=== PATIENT | female | born 1930 | race Caucasian/White ===

== ENCOUNTER 2017-02-11 03:12 | Inpatient (IN) | payer MEDICARE, OTHER ==
[~2017-02-11] VITALS: Ht 167.6 cm; Wt 70.0 kg
[2017-02-11] VITALS (8 sets, daily range): BP systolic 130–147; BP diastolic 60–91; PULSE 69–138; RESP 14–20; TEMP 96–98.2; O2SAT 94–97
[~2017-02-11 03:12] MED LIST: ALLO300 PO; CELE10TA9 PO; CEPH500 PO; FURO1TAB93 PO; GLIM1TAB PO; GLUCTAB PO; IBUP800T23 PO; LEVO100T4 PO; LORA-474 PO; POTA-267 PO; POTA10IN2 PO; RANI150 PO; REME15TA PO; SERO25TA PO; [UNRECOGNIZED DRUG - CODE] PO
[2017-02-11] MEDS ORDERED: SODIUM CHLOR 0.9% 1000 ML INJ 1,000 ML IV SCH (03:59)
[2017-02-11] MEDS ORDERED: SODIUM CHLORIDE 0.9% FLUSH 10 ML FLUSH IV FLUSH PRN ×2 (04:00→07:15)
[2017-02-11] MEDS ORDERED: METFPOW (04:41)
[2017-02-11] MEDS ORDERED: CELE10TA PO (04:41)
[2017-02-11] MEDS ORDERED: REME15TA PO (04:41)
[2017-02-11] MEDS ORDERED: SERO25TA PO (04:41)
[2017-02-11] MEDS ORDERED: NUED20CA PO (04:41)
[2017-02-11] MEDS ORDERED: TUSSLIQ3 PO (04:41)
[2017-02-11] MEDS ORDERED: MILK2400 PO (04:41)
[2017-02-11] MEDS ORDERED: ALLO300T2 PO (04:41)
[2017-02-11] MEDS ORDERED: GLIM1TAB PO (04:41)
[2017-02-11] MEDS ORDERED: FURO1TAB62 PO (04:41)
[2017-02-11] MEDS ORDERED: TYLE325T PO (04:41)
[2017-02-11] MEDS ORDERED: METF500T PO (04:41)
[2017-02-11] MEDS ORDERED: LORA-474 PO ×2 (04:41→11:03)
[2017-02-11] MEDS ORDERED: VERA240C PO (04:41)
[2017-02-11] MEDS ORDERED: LEVO100T5 PO (04:41)
[2017-02-11] MEDS ORDERED: IBUP800T23 PO (04:41)
[2017-02-11] MEDS ORDERED: POTA10CA PO (04:41)
[2017-02-11] MEDS ORDERED: ZANTTAB PO (04:41)
[2017-02-11 05:06] LABS: AUTOMATED NEUTROPHIL # 10.2 TH/MM3 (1.8-7.7); BASOPHIL # 0.1 TH/MM3 (0-0.2); BASOPHIL % 0.7 % (0.0-2.0); EOSINOPHIL # 1.8 TH/MM3 (0-0.4); EOSINOPHIL % 10.1 % (0.0-4.0); HEMATOCRIT 34.6 % (35.0-46.0); HEMO FLAGS DIFF FINAL; LYMPH % 24.2 % (9.0-44.0); LYMPHOCYTE # 4.3 TH/MM3 (1.0-4.8); MEAN CELL VOLUME 100.4 FL (80.0-100.0); MEAN CORPUSCULAR HEMOGLOBIN 33.6 PG (27.0-34.0); MEAN CORPUSCULAR HGB CONC 33.5 % (32.0-36.0); MONO % 6.8 % (0.0-8.0); NEUT % 58.2 % (16.0-70.0); PLATELET COUNT 222 TH/MM3 (150-450); RED BLOOD COUNT 3.45 MIL/MM3 (4.00-5.30); RED CELL DISTRIBUTION WIDTH 16.1 % (11.6-17.2); WHITE BLOOD COUNT 17.6 TH/MM3 (4.0-11.0)
[2017-02-11 05:19] LABS: APTT (PATIENT) 27.5 SEC (24.3-30.1); INTERNATIONAL NORMALIZED RATIO 1.4 RATIO; PROTHROMBIN TIME - PATIENT 15.9 SEC (9.8-11.6)
[2017-02-11 05:26] LABS: ANION GAP 5 MEQ/L (5-15); AST (GOT) 13 U/L (15-37); BICARBONATE 30.7 MEQ/L (21.0-32.0); BLOOD UREA NITROGEN 48 MG/DL (7-18); CHLORIDE 122 MEQ/L (98-107); GLOMERULAR FILTRATION RATE 29 ML/MIN (>89); POTASSIUM 3.8 MEQ/L (3.5-5.1)
[2017-02-11 05:28] LABS: ALKALINE PHOSPHATASE 91 U/L (45-117); ALT (GPT) 16 U/L (10-53); TOTAL BILIRUBIN ADULT 0.3 MG/DL (0.2-1.0)
[2017-02-11 05:29] LABS: SODIUM (NA) 158 MEQ/L (136-145)
[2017-02-11 06:06] LABS: BACTERIA, URINE MANY /hpf; BLOOD, URINE TRACE (NEG); COMMENT (UR) CATH-CULTURE IND; CULTURE IF INDICATED CATH CULTURE IND; GLUCOSE,URINE NEG (NEG); KETONE, URINE NEG (NEG); MUCUS URINE FEW /lpf (OCC); NITRITE,URINE POS (NEG); SQUAMOUS EPITHELIAL CELL URINE 1 /hpf (0-5); URINE COLOR YELLOW (YELLW/STRAW)
--- NOTE | 2017-02-11 06:14 | PD ---
HPI Chief Complaint: Abnormal Results Time Seen by Provider: 04:13 Travel History International Travel<30 days: No Contact w/Intl Traveler<30days: No Traveled to known affect area: No History of Present Illness HPI Patient is an 86 year old female with history of dementia who presents to ER from [facility] for elevated sodium. Patient unable to provide hpi due to her dementia. Patient also sent to ER to evaluate for possible UTI PFSH Past Medical History Alzheimer's Disease: Yes Anemia: Yes Arthritis: Yes Anxiety: Yes Depression: Yes Congestive Heart Failure: Yes Diabetes: Yes Patient Takes Glucophage: Yes Gout: Yes Hypertension: Yes Immunizations Current: Yes Thyroid Disease: Yes Social History Alcohol Use: No (UNK) Tobacco Use: No (UNK) Substance Use: No (UNK) Allergies-Medications (Allergen,Severity, Reaction): Coded Allergies: No Known Allergies (Unverified , 02/11/17) Reported Meds & Prescriptions Reported Meds & Active Scripts Active Reported Ativan (Lorazepam) 1 Mg Tab 1 Mg PO Q8H Zantac 150 Maximum Strength (Ranitidine HCl) 150 Mg Tab 150 Mg PO DAILY Verapamil HCl ER (Verapamil HCl) 240 Mg Cap 240 Mg PO DAILY Tylenol (Acetaminophen) 325 Mg Tab 650 Mg PO Q4H PRN Tussin Dm 100-10 mg/5Ml (Dextromethorphan-Guaifenesin) 1 Liq Liq 5 Ml PO Q4HR PRN Seroquel (Quetiapine Fumarate) 25 Mg Tab 25 Mg PO BID Remeron (Mirtazapine) 15 Mg Tab 15 Mg PO HS Potassium Chloride ER (Potassium Chloride) 10 Meq Cap 10 Meq PO BID Nuedexta 20-10 mg (Dextromethorphan HBr-Quinidine) 1 Cap Cap 1 Cap PO BID Milk of Magnesia Concentrate Liq (Magnesium Hydroxide) 1,200 Mg/5 Ml Susp 30 Ml PO DAILY PRN Metformin (Metformin HCl) 500 Mg Tab 500 Mg PO DAILY With a meal Levothyroxine (Levothyroxine Sodium) 100 Mcg Tab 100 Mcg PO DAILY Lasix (Furosemide) 20 Mg Tab 20 Mg PO DAILY Ibuprofen 800 Mg Tab 800 Mg PO BID Glimepiride 1 Mg Tab 1 Mg PO DAILY Take with breakfast or first main meal Celexa (Citalopram Hydrobromide) 10 Mg Tab 10 Mg PO DAILY Ativan (Lorazepam) 1 Mg Tab 1 Mg PO Q6H PRN Allopurinol 300 Mg Tab 300 Mg PO DAILY Review of Systems ROS Limitations: Poor Historian (dementia) Physical Exam Narrative GENERAL: nad, pleasantly confused SKIN: Focused skin assessment warm/dry. HEAD: Atraumatic. Normocephalic. EYES: Pupils equal and round. No scleral icterus. No injection or drainage. ENT: No nasal bleeding or discharge. Mucous membranes dry and tachy NECK: Trachea midline. No JVD. CARDIOVASCULAR: Regular rate and rhythm. No murmur appreciated. RESPIRATORY: No accessory muscle use. Clear to auscultation. Breath sounds equal bilaterally. GASTROINTESTINAL: Abdomen soft, non-tender, nondistended. Hepatic and splenic margins not palpable. MUSCULOSKELETAL: No obvious deformities. No clubbing. No cyanosis. No edema. Data Data Last Documented VS Vital Signs Date Time Temp Pulse Resp B/P Pulse Ox O2 Delivery O2 Flow Rate FiO2 02/11/17 05:02 75 16 135/63 95 Room Air Orders Complete Blood Count With Diff (02/11/17 03:59) Comprehensive Metabolic Panel (02/11/17 03:59) Lipase (02/11/17 03:59) Prothrombin Time / Inr (Pt) (02/11/17 03:59) Act Partial Throm Time (Ptt) (02/11/17 03:59) Urinalysis - C+S If Indicated (02/11/17 03:59) Iv Access Insert/Monitor (02/11/17 03:59) Ecg Monitoring (02/11/17 03:59) Sodium Chlor 0.9% 1000 Ml Inj (Ns 1000 M (02/11/17 03:59) Sodium Chloride 0.9% Flush (Ns Flush) (02/11/17 04:00) Electrocardiogram (02/11/17 05:19) Ckmb (Isoenzyme) Profile (02/11/17 05:19) Troponin I (02/11/17 05:19) ^ Straight Catheter (02/11/17 05:34) Urine Culture (02/11/17 05:50) Dext 5%-Nacl 0.45% 1000 Ml Inj (D5w-1/2 (02/11/17 06:30) Piperacil-Tazo 3.375 Gm Premix (Zosyn 3. (02/11/17 06:30) Aspirin Supp (Aspirin Supp) (02/11/17 06:30) Admit Order (Ed Use Only) (02/11/17 06:34) Labs Laboratory Tests Test 02/11/17 02/11/17 04:55 05:50 White Blood Count 17.6 TH/MM3 Red Blood Count 3.45 MIL/MM3 Hemoglobin 11.6 GM/DL Hematocrit 34.6 % Mean Corpuscular Volume 100.4 FL Mean Corpuscular Hemoglobin 33.6 PG Mean Corpuscular Hemoglobin 33.5 % Concent Red Cell Distribution Width 16.1 % Platelet Count 222 TH/MM3 Mean Platelet Volume 10.3 FL Neutrophils (%) (Auto) 58.2 % Lymphocytes (%) (Auto) 24.2 % Monocytes (%) (Auto) 6.8 % Eosinophils (%) (Auto) 10.1 % Basophils (%) (Auto) 0.7 % Neutrophils # (Auto) 10.2 TH/MM3 Lymphocytes # (Auto) 4.3 TH/MM3 Monocytes # (Auto) 1.2 TH/MM3 Eosinophils # (Auto) 1.8 TH/MM3 Basophils # (Auto) 0.1 TH/MM3 CBC Comment DIFF FINAL Differential Comment Prothrombin Time 15.9 SEC Prothromb Time International 1.4 RATIO Ratio Activated Partial 27.5 SEC Thromboplast Time Sodium Level 158 MEQ/L Potassium Level 3.8 MEQ/L Chloride Level 122 MEQ/L Carbon Dioxide Level 30.7 MEQ/L Anion Gap 5 MEQ/L Blood Urea Nitrogen 48 MG/DL Creatinine 1.66 MG/DL Estimat Glomerular Filtration 29 ML/MIN Rate Random Glucose 172 MG/DL Calcium Level 8.9 MG/DL Total Bilirubin 0.3 MG/DL Aspartate Amino Transf 13 U/L (AST/SGOT) Alanine Aminotransferase 16 U/L (ALT/SGPT) Alkaline Phosphatase 91 U/L Total Protein 6.8 GM/DL Albumin 2.9 GM/DL Lipase 124 U/L Urine Color YELLOW Urine Turbidity HAZY Urine pH 5.0 Urine Specific [place] 1.016 Urine Protein TRACE mg/dL Urine Glucose (UA) NEG mg/dL Urine Ketones NEG mg/dL Urine Occult Blood TRACE Urine Nitrite POS Urine Bilirubin NEG Urine Urobilinogen LESS THAN 2.0 MG/DL Urine Leukocyte Esterase LARGE Urine RBC 2 /hpf Urine WBC 85 /hpf Urine WBC Clumps MANY Urine Squamous Epithelial 1 /hpf Cells Urine Bacteria MANY /hpf Urine Mucus FEW /lpf Microscopic Urinalysis Comment CATH-CULTURE IND MDM Medical Decision Making Medical Screen Exam Complete: Yes Emergency Medical Condition: Yes Interpretation(s) Vital Signs Date Time Temp Pulse Resp B/P Pulse Ox O2 Delivery O2 Flow Rate FiO2 02/11/17 05:02 75 16 135/63 95 Room Air Differential Diagnosis Hyponatremia, UTI, electrolyte abnormality, ACS, arrhythmia Narrative Course Patient is an 86-year-old female who presents to emergency room from [facility] for evaluation of hypernatremia. Patient's sodium from yesterday's lab was 164. Patient was also sent to the emergency room for evaluation of possible UTI. Labs ordered, sodium 158 - patient with dry mucous membranes, cr elevated - hypernatremia most likely from dehydration and decreased PO intake wbc 17.6, ua positive for large leuk esterase, many wbc, she does have uc from - pt sensitive to zosyn, nitrofuantoin, cefuroxime will give dose of zosyn, it does not appear that patient is on any antibiotics at this time upon [place] records review ekg at 0454: NSR at 73bpm, qt/qtc: 265/291, there are st seg changes - ekg is similar when compared to previous ekg from 12/22/[address] bravo who accepts pt to service Diagnosis Primary Impression: Hypernatremia Additional Impression: UTI (urinary tract infection) Admitting Information Admitting Physician Requests: Admit Jesika Garcia DO February 11, 2017 06:13
[2017-02-11] MEDS ORDERED: ASPIRIN 300 MG SUPP RECTAL ONE (06:30)
[2017-02-11] MEDS ORDERED: DEXT 5%-NACL 0.45% 1000 ML INJ 1,000 ML IV ONE (06:30)
[2017-02-11] MEDS ORDERED: PIPERACIL-TAZO 3.375 GM PREMIX 50 ML IV ONE (06:30)
[2017-02-11] MEDS ORDERED: NALOXONE HCL 0.4 MG/ML AMP IV PRN (07:15)
[2017-02-11] MEDS ORDERED: ACETAMINOPHEN 325 MG TAB PO PRN (07:15)
[2017-02-11] MEDS: DEXTROSE 5% IN WATE 1000ML INJ 1,000 ML IV SCH ×2 (07:15→17:52)
[2017-02-11] MEDS ORDERED: DEXTROSE 50% IN WATER 50 ML VIAL(D50) IV PRN (09:45)
[2017-02-11] MEDS ORDERED: GLUCAGON 1 MG/ML VIAL OTHER PRN (09:45)
--- NOTE | 2017-02-11 10:22 | HHI.HP ---
[facility] Primary Care Physician No Primary Care Physician Admission Diagnosis Hypernatremia, UTI Diagnoses: Chief Complaint: Hypernatremia, UTI Travel History International Travel<30 Days: No Contact w/Intl Traveler <30 Da: No Traveled to Known Affected Are: No History of Present Illness 86-year-old female with a medical history significant for dementia, anxiety/ depression, GERD, CHF, diabetes, hypertension, hypothyroidism, gout, recurrent UTI sent to the hospital from her [place] [facility] facility for hypernatremia. It was reported the patient's sodium has been as high as 164 and was given IV fluid in the nursing facility without much improvement. The patient has significant dementia and is unable to provide her medical history. History obtained from extensive review of the available chart. She can say yes or no to a simple conversation. Currently she denies having any problems. Does not know why she is here. She could not tell me about her diet toward or not she has been drinking water or any fluids. Initial workup in the emergency room revealed a sodium of 158, evidence of a UTI and acute on chronic kidney injury. Review of Systems ROS Limitations: Clinical Condition, Poor Historian Constitutional: DENIES: Fever, Chills Ears, nose, mouth, throat: DENIES: Throat pain, Hoarseness Respiratory: DENIES: Shortness of breath Cardiovascular: DENIES: Chest pain Gastrointestinal: DENIES: Abdominal pain, Nausea, Vomiting Genitourinary: DENIES: Hematuria, Dysuria Neurologic: DENIES: Headache, Localized weakness Psychiatric: COMPLAINS OF: Confusion Past Family Social History Past Medical History dementia, anxiety/depression, GERD, CHF, diabetes, hypertension, hypothyroidism , gout, recurrent UTI Past Surgical History Unable to obtain due to the patient's current condition Reported Medications Medications as listed per the [place] [facility] facility. Nursing staff will confirm dosing and administration time with the nursing facility. Reported Meds & Active Scripts Active Reported Zantac 150 Maximum Strength (Ranitidine HCl) 150 Mg Tab 150 Mg PO DAILY Verapamil HCl ER (Verapamil HCl) 240 Mg Cap Tylenol (Acetaminophen) 325 Mg Tab 325 Mg PO Q4H PRN Tussin Dm 100-10 mg/5Ml (Dextromethorphan-Guaifenesin) 1 Liq Liq Seroquel (Quetiapine Fumarate) 25 Mg Tab 25 Mg PO BID Remeron (Mirtazapine) 15 Mg Tab 15 Mg PO HS Potassium Chloride ER (Potassium Chloride) 10 Meq Cap 10 Meq PO BID Nuedexta 20-10 mg (Dextromethorphan HBr-Quinidine) 1 Cap Cap 1 Cap PO BID Milk of Magnesia Concentrate Liq (Magnesium Hydroxide) 1,200 Mg/5 Ml Susp 30 Ml PO DAILY PRN Metformin (Metformin HCl) 500 Mg Tab 500 Mg PO DAILY With a meal Levothyroxine (Levothyroxine Sodium) 100 Mcg Tab 100 Mcg PO DAILY Lasix (Furosemide) 20 Mg Tab 20 Mg PO DAILY Ibuprofen 800 Mg Tab 800 Mg PO BID Glimepiride 1 Mg Tab 1 Mg PO DAILY Take with breakfast or first main meal Celexa (Citalopram Hydrobromide) 10 Mg Tab 10 Mg PO DAILY Ativan (Lorazepam) 1 Mg Tab 1 Mg PO Q6H PRN Allopurinol 300 Mg Tab 300 Mg PO DAILY Allergies: Coded Allergies: No Known Allergies (Unverified , 02/11/17) Family History Unable to obtain due to the patient's condition Social History Unable to obtain. Physical Exam Vital Signs Vital Signs Date Time Temp Pulse Resp B/P Pulse Ox O2 Delivery O2 Flow Rate FiO2 02/11/17 05:02 75 16 135/63 95 Room Air Physical Exam GENERAL: Elderly demented patient SKIN: Right black has an abrasion that is dried HEAD: Atraumatic. Normocephalic. No temporal or scalp tenderness. EYES: Pupils equal round and reactive. Extraocular motions intact. No scleral icterus. No injection or drainage. ENT: Mouth is pasty and dry. Nose without bleeding, purulent drainage or septal hematoma. Throat without erythema, tonsillar hypertrophy or exudate. Uvula midline. Airway patent. NECK: Trachea midline. No JVD or lymphadenopathy. Supple, nontender, no meningeal signs. CARDIOVASCULAR: Regular rate and rhythm. 2/6 BALIBR murmur, best heard at the left lower sternal border. RESPIRATORY: Clear to auscultation. Breath sounds equal bilaterally. No wheezes , rales, or rhonchi. GASTROINTESTINAL: Abdomen soft, non-tender, nondistended. No hepato-splenomegaly , or palpable masses. No guarding. MUSCULOSKELETAL: Extremities without clubbing, cyanosis, or edema. Negative Homans sign bilaterally. NEUROLOGICAL: Awake and alert. Demented, confused. Focal weakness but generalized weakness noted. Speech mostly incoherent. Laboratory Laboratory Tests Test 02/11/17 02/11/17 04:55 05:50 White Blood Count 17.6 Red Blood Count 3.45 Hemoglobin 11.6 Hematocrit 34.6 Mean Corpuscular Volume 100.4 Mean Corpuscular Hemoglobin 33.6 Mean Corpuscular Hemoglobin 33.5 Concent Red Cell Distribution Width 16.1 Platelet Count 222 Mean Platelet Volume 10.3 Neutrophils (%) (Auto) 58.2 Lymphocytes (%) (Auto) 24.2 Monocytes (%) (Auto) 6.8 Eosinophils (%) (Auto) 10.1 Basophils (%) (Auto) 0.7 Neutrophils # (Auto) 10.2 Lymphocytes # (Auto) 4.3 Monocytes # (Auto) 1.2 Eosinophils # (Auto) 1.8 Basophils # (Auto) 0.1 CBC Comment DIFF FINAL Differential Comment Prothrombin Time 15.9 Prothromb Time International 1.4 Ratio Activated Partial 27.5 Thromboplast Time Sodium Level 158 Potassium Level 3.8 Chloride Level 122 Carbon Dioxide Level 30.7 Anion Gap 5 Blood Urea Nitrogen 48 Creatinine 1.66 Estimat Glomerular Filtration 29 Rate Random Glucose 172 Calcium Level 8.9 Total Bilirubin 0.3 Aspartate Amino Transf 13 (AST/SGOT) Alanine Aminotransferase 16 (ALT/SGPT) Alkaline Phosphatase 91 Total Protein 6.8 Albumin 2.9 Lipase 124 Urine Color YELLOW Urine Turbidity HAZY Urine pH 5.0 Urine Specific [place] 1.016 Urine Protein TRACE Urine Glucose (UA) NEG Urine Ketones NEG Urine Occult Blood TRACE Urine Nitrite POS Urine Bilirubin NEG Urine Urobilinogen LESS THAN 2.0 Urine Leukocyte Esterase LARGE Urine RBC 2 Urine WBC 85 Urine WBC Clumps MANY Urine Squamous Epithelial 1 Cells Urine Bacteria MANY Urine Mucus FEW Microscopic Urinalysis Comment CATH-CULTURE IND Date/Time Procedure Status Source Growth 02/11/17 05:50 Urine Culture Received Urine Catheterized Urine Pending Result Diagram: 02/11/17 0455 02/11/17 0455 Assessment and Plan Problem List: (1) Hypernatremia ICD Code: E87.0 Status: Acute Plan: Suspect this is due to hypovolemia from dehydration. Patient appears dry on exam. - IV fluid with D5 half-normal saline at 100 cc per hour. - Repeat BMP at noon. - Follow intake and output. We'll need to ensure she can take adequate oral fluid intake. Not unusual for dementia patient to refuse to eat as the disease progress to end-stage. (2) UTI (urinary tract infection) ICD Code: N39.0 Status: Acute Plan: History of recurrent UTI but no reports of resistant infection. - Patient received a dose of Zosyn. Will continue antibiotics with Rocephin and follow urine cultures. (3) DEHYDRATION ICD Code: E86.0 Status: Acute Plan: IV fluid replacement with D5 half-normal saline at 100 cc per hour as above. Follow intake and output. (4) Acute kidney injury superimposed on chronic kidney disease ICD Code: N17.9 Status: Acute Plan: Likely prerenal azotemia from dehydration. IV fluid as above. Follow- up BMP (5) Dementia ICD Code: F03.90 Status: Chronic Plan: Appear to have had some behavioral disturbances in the past. Patient is dehydrated likely from inadequate oral intake. (6) Diabetes ICD Code: E11.9 Status: Acute Plan: Hold all hypoglycemic agents. SSI with Accu-Cheks (7) Hypertension ICD Code: I10 Status: Chronic Plan: Currently normotensive. Hold antihypertensives given the hydration status. Hydralazine PRN. Monitor Code Status Full code for now. Awaiting clarification from healthcare surrogate. Discussed Condition With RN.We attempted to call the patient's healthcare surrogate. No answer. POA was notified. They will have the healthcare surrogate call us to clarify code status. Physician Certification 2 Midnight Certification Type: Admission for Inpatient Services Order for Inpatient Services The services are ordered in accordance with Medicare regulations or non- Medicare payer requirements, as applicable. In the case of services not specified as inpatient-only, they are appropriately provided as inpatient services in accordance with the 2-midnight benchmark. Estimated LOS (days): 3 days is the estimated time the patient will need to remain in the hospital, assuming treatment plan goals are met and no additional complications. Post-Hospital Plan: [facility] Rosalio Cameron MD February 11, 2017 10:22
[2017-02-11] MEDS: INSULIN ASPART SUPPLEMENTAL SCALE SQ SCH ×3 (11:00→21:21)
[2017-02-11] MEDS: SODIUM CHLORIDE 0.9% FLUSH 10 ML FLUSH IV FLUSH SCH ×2 (12:17→21:00)
[2017-02-11] MEDS: HEPARIN SODIUM - SQ 10,000 UNITS/ML VIAL SQ SCH ×2 (12:21→17:51)
[2017-02-11 12:24] LABS: CREATINE KINASE 43 U/L (26-192)
--- NOTE | 2017-02-11 15:11 | EKG ---
Date Performed: 02/11/2017 Time Performed: 04:54:30 PTAGE: 86 years EKG: Sinus rhythm WITH FIRST DEGREE AV BLOCK LOW QRS VOLTAGE IN PRECORDIAL LEADS ST ELEVATION, CONSIDER SEPTAL INJURY TYPE 3 BRUGADA PATTERN (NON-DIAGNOSTIC) ACUTE FL When compared to PREVIOUS TRACING , ST elevation has improved. Anterior infarct can not be excluded. Clini pritesh corrolation is suggested. PREVIOUS TRACIN12/22/2015 00.55 DOCTOR: Rivka Long Interpretating Date/Time 02/11/2017 15:10:16
[2017-02-11 16:52] LABS: BICARBONATE 24.6 MEQ/L (21.0-32.0); POTASSIUM 3.7 MEQ/L (3.5-5.1)
--- NOTE | 2017-02-11 20:15 | EKG ---
Date Performed: 02/11/2017 Time Performed: 07:14:03 PTAGE: 86 years EKG: Sinus rhythm WITH FIRST DEGREE AV BLOCK LOW QRS VOLTAGE IN PRECORDIAL LEADS NONSPECIFIC ST & T-WAVE ABNORMALITY R BBB ARTIFACT ABNORMAL ECG PREVIOUS TRACING : 02/11/2017 04.54 Compared to prior tracing no significant change DOCTOR: Janet Lynn Interpretating Date/Time 02/11/2017 20:12:49
[2017-02-11] MEDS: QUEtiapine FUMARATE 25 MG TAB PO SCH (21:22)
[2017-02-11 21:41] LABS: HEMOGLOBIN A1a 1.4 %; HEMOGLOBIN A1b 2.4 %; HEMOGLOBIN LA1C 2.8 %
[2017-02-11 21:42] LABS: HEMOGLOBIN P3 6.8 %
[2017-02-12] VITALS (8 sets, daily range): BP systolic 130–149; BP diastolic 60–78; PULSE 66–116; RESP 16–21; TEMP 96.7–99.5; O2SAT 94–98
[2017-02-12] MEDS: HEPARIN SODIUM - SQ 10,000 UNITS/ML VIAL SQ SCH ×4 (01:00→23:13)
[2017-02-12] MEDS: DEXTROSE 5% IN WATE 1000ML INJ 1,000 ML IV SCH ×2 (02:23→23:16)
[2017-02-12] MEDS: INSULIN ASPART SUPPLEMENTAL SCALE SQ SCH ×4 (05:23→23:13)
[2017-02-12 05:26] LABS: AUTOMATED NEUTROPHIL # 9.3 TH/MM3 (1.8-7.7); BASOPHIL # 0.1 TH/MM3 (0-0.2); BASOPHIL % 0.4 % (0.0-2.0); EOSINOPHIL % 12.3 % (0.0-4.0); HEMATOCRIT 30.6 % (35.0-46.0); HEMO FLAGS DIFF FINAL; LYMPH % 25.9 % (9.0-44.0); LYMPHOCYTE # 4.3 TH/MM3 (1.0-4.8); MEAN CELL VOLUME 100.5 FL (80.0-100.0); MEAN CORPUSCULAR HEMOGLOBIN 31.7 PG (27.0-34.0); MEAN CORPUSCULAR HGB CONC 31.5 % (32.0-36.0); MONO % 4.9 % (0.0-8.0); NEUT % 56.5 % (16.0-70.0); PLATELET COUNT 180 TH/MM3 (150-450); RED BLOOD COUNT 3.04 MIL/MM3 (4.00-5.30); RED CELL DISTRIBUTION WIDTH 15.9 % (11.6-17.2); WHITE BLOOD COUNT 16.5 TH/MM3 (4.0-11.0)
[2017-02-12 05:57] LABS: ALKALINE PHOSPHATASE 75 U/L (45-117); ALT (GPT) 14 U/L (10-53); ANION GAP 6 MEQ/L (5-15); AST (GOT) 16 U/L (15-37); BICARBONATE 27.5 MEQ/L (21.0-32.0); BLOOD UREA NITROGEN 27 MG/DL (7-18); CHLORIDE 117 MEQ/L (98-107); GLOMERULAR FILTRATION RATE 52 ML/MIN (>89); POTASSIUM 3.4 MEQ/L (3.5-5.1); SODIUM (NA) 150 MEQ/L (136-145); TOTAL BILIRUBIN ADULT 0.4 MG/DL (0.2-1.0)
[2017-02-12] MEDS ORDERED: PILL SPLITTER OTHER PRN (09:00)
[2017-02-12] MEDS: ALLOPURINOL 300 MG TAB PO SCH (09:58)
[2017-02-12] MEDS: QUEtiapine FUMARATE 25 MG TAB PO SCH ×2 (09:58→20:48)
[2017-02-12] MEDS: CITALOPRAM HYDROBROMIDE 20 MG TAB PO SCH (09:58)
[2017-02-12] MEDS: SODIUM CHLORIDE 0.9% FLUSH 10 ML FLUSH IV FLUSH SCH ×2 (09:59→20:46)
--- NOTE | 2017-02-12 11:42 | HHI.PR ---
Subjective Remarks Patient has no new complaints. Pleasantly demented. Discussed with RN. Concerned that she is not able to eat. Objective Vitals Vital Signs Date Time Temp Pulse Resp B/P Pulse Ox O2 Delivery O2 Flow Rate FiO2 02/12/17 08:00 96.7 66 20 130/60 96 02/12/17 04:33 97.0 76 17 133/67 94 02/12/17 01:15 84 02/12/17 00:00 96.8 74 21 134/65 96 02/11/17 20:39 138 02/11/17 20:00 96.4 92 16 147/91 94 02/11/17 16:46 96.0 73 20 139/62 95 02/11/17 16:14 14 70 130/60 02/11/17 13:00 98.2 02/11/17 12:00 70 14 138/68 97 Room Air I/O 02/11/17 02/11/17 02/11/17 02/12/17 02/12/17 02/12/17 07:00 15:00 23:00 07:00 15:00 23:00 Intake Total 380 ml 1238 ml 40 ml Balance 380 ml 1238 ml 40 ml Intake Oral 380 ml 120 ml 40 ml IV Total 1118 ml # Voids 3 2 1 # Bowel Movements 0 Result Diagram: 02/12/17 0428 02/12/17 0428 Objective Remarks GENERAL: Elderly demented female CARDIOVASCULAR: Normal rate and regular rhythm. 3/6 BALBIR best at the left sternal border. RESPIRATORY: Good respiratory efforts. Breath sounds equal and clear to auscultation bilaterally. GASTROINTESTINAL: Abdomen soft, non-tender, non-distended. Normal active bowel sounds MUSCULOSKELETAL: Extremities without cyanosis, or edema. NEURO: Demented. Generally weak. PSYCH: Calm.. A/P Problem List: (1) Hypernatremia ICD Code: E87.0 Status: Acute Plan: Suspect this is due to hypovolemia from dehydration. Patient appears dry on exam. This is improving. - Continue with IV fluid with D5 half-normal saline at 100 cc per hour. - Repeat BMP in a.m. - Follow intake and output. It appears she is having problems eating. Speech therapy evaluation. (2) UTI (urinary tract infection) ICD Code: N39.0 Status: Acute Plan: History of recurrent UTI but no reports of resistant infection. - Patient received a dose of Zosyn. Will continue antibiotics with Rocephin and follow urine cultures. (3) DEHYDRATION ICD Code: E86.0 Status: Acute Plan: IV fluid replacement with D5 half-normal saline at 100 cc per hour as above. Follow intake and output. (4) Acute kidney injury superimposed on chronic kidney disease ICD Code: N17.9 Status: Acute Plan: Likely prerenal azotemia from dehydration. Improving. IV Fluid as above. Follow-up BMP (5) Dementia ICD Code: F03.90 Status: Chronic Plan: Appear to have had some behavioral disturbances in the past. Patient is dehydrated likely from inadequate oral intake. (6) Diabetes ICD Code: E11.9 Status: Acute Plan: Hold oral hypoglycemic agents. SSI with Accu-Cheks (7) Hypertension ICD Code: I10 Status: Chronic Plan: Currently normotensive. Hold antihypertensives given the hydration status. Hydralazine PRN. Monitor Rosalio Cameron MD February 12, 2017 11:42
[2017-02-13] VITALS: BP 161/70; PULSE 77; RESP 16; TEMP 96.4; O2SAT 94
[2017-02-13 04:00] VITALS: BP 155/67; PULSE 74; RESP 16; TEMP 96.8; O2SAT 94
[2017-02-13 05:36] LABS: HEMATOCRIT 33.1 % (35.0-46.0); MEAN CELL VOLUME 99.1 FL (80.0-100.0); MEAN CORPUSCULAR HEMOGLOBIN 32.4 PG (27.0-34.0); MEAN CORPUSCULAR HGB CONC 32.7 % (32.0-36.0); PLATELET COUNT 195 TH/MM3 (150-450); RED BLOOD COUNT 3.34 MIL/MM3 (4.00-5.30); RED CELL DISTRIBUTION WIDTH 15.7 % (11.6-17.2); REVIEW FLAG FINAL; WHITE BLOOD COUNT 15.1 TH/MM3 (4.0-11.0)
[2017-02-13] MEDS: INSULIN ASPART SUPPLEMENTAL SCALE SQ SCH ×3 (06:00→16:00)
[2017-02-13 06:04] LABS: BICARBONATE 26.1 MEQ/L (21.0-32.0); POTASSIUM 3.4 MEQ/L (3.5-5.1)
[2017-02-13 08:00] VITALS: BP 140/90; PULSE 70; RESP 16; TEMP 97.8; O2SAT 96
[2017-02-13] MEDS: SODIUM CHLORIDE 0.9% FLUSH 10 ML FLUSH IV FLUSH SCH (09:00)
[2017-02-13] MEDS: DEXTROSE 5% IN WATE 1000ML INJ 1,000 ML IV SCH (09:15)
[2017-02-13] MEDS: QUEtiapine FUMARATE 25 MG TAB PO SCH (09:41)
[2017-02-13] MEDS: HEPARIN SODIUM - SQ 10,000 UNITS/ML VIAL SQ SCH ×2 (09:41→17:15)
[2017-02-13] MEDS: ALLOPURINOL 300 MG TAB PO SCH (09:41)
[2017-02-13] MEDS: CITALOPRAM HYDROBROMIDE 20 MG TAB PO SCH (09:41)
[2017-02-13 12:00] VITALS: BP 104/75; PULSE 73; RESP 16; TEMP 98; O2SAT 95
[2017-02-13] MEDS ORDERED: CEFU1TAB20 PO (13:39)
--- NOTE | 2017-02-13 13:40 | HHI.DCPOC ---
Discharge Care Plan Diagnosis: (1) Dementia (2) Hypernatremia (3) UTI (urinary tract infection) (4) Acute kidney injury superimposed on chronic kidney disease (5) DEHYDRATION Goals to Promote Your Health * To prevent worsening of your condition and complications * To maintain your health at the optimal level Directions to Meet Your Goals Take your medications as prescribed Follow your dietary instruction Follow activity as directed Keep your appointments as scheduled Take your immunizations and boosters as scheduled If your symptoms worsen call your PCP, if no PCP go to Urgent Care Center or Emergency Room Smoking is Dangerous to Your Health. Avoid second hand smoke Call the 24-hour hour crisis hotline for domestic abuse at [place] February 13, 2017 13:40 Rosalio Cameron MD February 13, 2017 14:14
--- NOTE | 2017-02-13 13:40 | HHI.DS ---
Discharge Summary Admission Date February 11, 2017 at 06:35 Discharge Date: February 13, 2017 Admitting Diagnosis Hypernatremia, UTI (1) Hypernatremia ICD Code: E87.0 (2) UTI (urinary tract infection) ICD Code: N39.0 (3) DEHYDRATION ICD Code: E86.0 (4) Acute kidney injury superimposed on chronic kidney disease ICD Code: N17.9 (5) Dementia ICD Code: F03.90 (6) Diabetes ICD Code: E11.9 (7) Hypertension ICD Code: I10 Procedures IVF administration. Antibiotic administration. Lab monitoring. Brief History - From Admission 86-year-old female with a medical history significant for dementia, anxiety/ depression, GERD, CHF, diabetes, hypertension, hypothyroidism, gout, recurrent UTI sent to the hospital from her [facility] facility for hypernatremia. It was reported the patient's sodium has been as high as 164 and was given IV fluid in the nursing facility without much improvement. The patient has significant dementia and is unable to provide her medical history. History obtained from extensive review of the available chart. She can say yes or no to a simple conversation. Currently she denies having any problems. Does not know why she is here. She could not tell me about her diet toward or not she has been drinking water or any fluids. Initial workup in the emergency room revealed a sodium of 158, evidence of a UTI and acute on chronic kidney injury. CBC/BMP: 02/13/17 0446 02/13/17 0446 Significant Findings Laboratory Tests Test 02/11/17 02/11/17 02/11/17 02/11/17 04:55 05:50 11:20 15:38 Prothrombin Time 15.9 SEC (9.8-11.6) Sodium Level 158 MEQ/L 156 MEQ/L (136-145) (136-145) Chloride Level 122 MEQ/L 124 MEQ/L (98-107) (98-107) Blood Urea Nitrogen 48 MG/DL (7-18) 37 MG/DL (7-18) Creatinine 1.66 MG/DL 1.35 MG/DL (0.50-1.00) (0.50-1.00) Estimat Glomerular Filtration 29 ML/MIN (>89) 37 ML/MIN (>89) Rate Random Glucose 172 MG/DL 66 MG/DL (74-106) (74-106) Hemoglobin A1c 6.7 % (4.3-6.0) Aspartate Amino Transf 13 U/L (15-37) (AST/SGOT) Albumin 2.9 GM/DL (3.4-5.0) White Blood Count 17.6 TH/MM3 (4.0-11.0) Red Blood Count 3.45 MIL/MM3 (4.00-5.30) Hematocrit 34.6 % (35.0-46.0) Mean Corpuscular Volume 100.4 FL (80.0-100.0) Eosinophils (%) (Auto) 10.1 % (0.0-4.0) Neutrophils # (Auto) 10.2 TH/MM3 (1.8-7.7) Monocytes # (Auto) 1.2 TH/MM3 (0-0.9) Eosinophils # (Auto) 1.8 TH/MM3 (0-0.4) Urine Turbidity HAZY (CLEAR) Urine Occult Blood TRACE (NEG) Urine Nitrite POS (NEG) Urine Leukocyte Esterase LARGE (NEG) Urine WBC 85 /hpf (0-5) Urine WBC Clumps MANY (NONE) Urine Bacteria MANY /hpf (NONE) Urine Mucus FEW /lpf (OCC) Troponin I LESS THAN 0.02 LESS THAN 0.02 NG/ML NG/ML (0.02-0.05) (0.02-0.05) Test 02/12/17 02/13/17 04:28 04:46 White Blood Count 16.5 TH/MM3 15.1 TH/MM3 (4.0-11.0) (4.0-11.0) Red Blood Count 3.04 MIL/MM3 3.34 MIL/MM3 (4.00-5.30) (4.00-5.30) Hemoglobin 9.6 GM/DL 10.8 GM/DL (11.6-15.3) (11.6-15.3) Hematocrit 30.6 % 33.1 % (35.0-46.0) (35.0-46.0) Mean Corpuscular Volume 100.5 FL (80.0-100.0) Mean Corpuscular Hemoglobin 31.5 % Concent (32.0-36.0) Eosinophils (%) (Auto) 12.3 % (0.0-4.0) Neutrophils # (Auto) 9.3 TH/MM3 (1.8-7.7) Eosinophils # (Auto) 2.0 TH/MM3 (0-0.4) Sodium Level 150 MEQ/L (136-145) Potassium Level 3.4 MEQ/L 3.4 MEQ/L (3.5-5.1) (3.5-5.1) Chloride Level 117 MEQ/L 112 MEQ/L (98-107) (98-107) Blood Urea Nitrogen 27 MG/DL (7-18) 19 MG/DL (7-18) Creatinine 1.01 MG/DL (0.50-1.00) Estimat Glomerular Filtration 52 ML/MIN (>89) 56 ML/MIN (>89) Rate Random Glucose 123 MG/DL 134 MG/DL (74-106) (74-106) Calcium Level 8.2 MG/DL 8.4 MG/DL (8.5-10.1) (8.5-10.1) Total Protein 5.5 GM/DL (6.4-8.2) Albumin 2.3 GM/DL (3.4-5.0) PE at Discharge GENERAL: Elderly demented female CARDIOVASCULAR: Normal rate and regular rhythm. 3/6 BALBIR best at the left sternal border. RESPIRATORY: Good respiratory efforts. Breath sounds equal and clear to auscultation bilaterally. GASTROINTESTINAL: Abdomen soft, non-tender, non-distended. Normal active bowel sounds MUSCULOSKELETAL: Extremities without cyanosis, or edema. NEURO: Demented. Generally weak. PSYCH: Calm.. Hospital Course Ms. Ruvalcaba is an 86-year-old female with a medical history significant for dementia, anxiety/depression, GERD, CHF, diabetes, hypertension, hypothyroidism , gout, recurrent UTI sent to the hospital from her [facility]dc facility for hypernatremia with sodium of 158. Suspected hypernatremia due to hypovolemia from dehydration. Also found to have elevated creatinine on admission, 1.66, suspect likely prerenal azotemia from dehydration. Upon discharge creatinine had normalized. Administered IVF D% 1/2 NS at 100ml/hr. Sodium improved on day of discharge to 145. Intake and output were monitored. While patient was hospitalized patient was found to have trouble with eating and required prompting and assistance. When this was encouraged her PO intake improved significantly. Speech therapy evaluated patient with final recommendations of a pureed thin liquid diet with patient needing assistance with feeding to assure adequate PO intake. Patient arrived with leukocytosis, WBC 17.6 with trending downward to 15.1. Urine culture grew E.coli, given dose of Zosyn in ED and given course of Cefuroxime, to be finished at SNF. Patient's diabetes controlled via sliding scale insulin and covered as needed. Pt Condition on Discharge: Stable Discharge Disposition: Discharge to SNF Discharge Time: > 30 minutes Discharge Instructions DIET: Follow Instructions for: Heart Healthy Diet Speech Therapy-Diet Recommends: Pureed (thin liquids) Additional Diet Instructions: It is important that patient is given assistance with meals and prompted to eat to assure adequate intake with each meal. Activities you can perform: Regular-No Restrictions Follow up Referrals: PCP Follow-up - 2-3 Days New Medications: Cefuroxime (Cefuroxime) 500 Mg Tab 500 MG PO BID Infection #10 Ref 0 TAB Continued Medications: Acetaminophen (Tylenol) 325 Mg Tab 650 MG PO Q4H PRN MILD PAIN Ref 0 TAB Allopurinol (Allopurinol) 300 Mg Tab 300 MG PO DAILY Gout #30 Ref 0 TAB Citalopram (Celexa) 10 Mg Tab 10 MG PO DAILY Control Depression #30 Ref 0 TAB Dextromethorphan HBr-Quinidine (Nuedexta 20-10 mg) 1 Cap Cap 1 CAP PO BID Pseudobulbar Affect #60 Ref 0 CAP Dextromethorphan-Guaifenesin (Tussin Dm 100-10 mg/5Ml) 1 Liq Liq 5 ML PO Q4HR PRN CHEST CONGESTION AND/OR COUGH Furosemide (Lasix) 20 Mg Tab 20 MG PO DAILY #30 Ref 0 TAB Glimepiride (Glimepiride) 1 Mg Tab 1 MG PO DAILY Take with breakfast or first main meal Blood Sugar Management #30 Ref 0 TAB Ibuprofen (Ibuprofen) 800 Mg Tab 800 MG PO BID Arthritis Pain Ref 0 TAB Levothyroxine (Levothyroxine) 100 Mcg Tab 100 MCG PO DAILY Thyroid #30 Ref 0 TAB Lorazepam (Ativan) 1 Mg Tab 1 MG PO Q6H PRN ANXIETY AND/OR AGITATION Ref 0 TAB Lorazepam (Ativan) 1 Mg Tab 1 MG PO Q8H Anxiety Ref 0 TAB Magnesium Hydroxide Concentrate Liq (Milk of Magnesia Concentrate Liq) 1,200 Mg/ 5 Ml Susp 30 ML PO DAILY PRN CONSTIPATION #1 BOTTLE Metformin (Metformin) 500 Mg Tab 500 MG PO DAILY With a meal Blood Sugar Management #30 Ref 0 TAB Mirtazapine (Remeron) 15 Mg Tab 15 MG PO HS Depression Control #30 Ref 0 TAB Potassium Chloride ER (Potassium Chloride ER) 10 Meq Cap 10 MEQ PO BID Electrolyte Replacement #60 Ref 0 CAP Quetiapine (Seroquel) 25 Mg Tab 25 MG PO BID #60 Ref 0 TAB Ranitidine (Zantac 150 Maximum Strength) 150 Mg Tab 150 MG PO DAILY TAB Verapamil HCl (Verapamil HCl ER) 240 Mg Cap 240 MG PO DAILY HTN Belgica Sousa February 13, 2017 13:40 Rosalio Cameron MD February 13, 2017 14:15
[2017-02-13] MEDS ORDERED: POTASSIUM CHLORIDE 10 MEQ CONTROLLED RELEASE TAB PO ONE (14:00)
== END 2017-02-13 18:02 | DRG 641 ==
LOC: NEPE 03:12 → NEDA 06:35 → N07B 16:21
PROVIDERS: ADMIT Family Medicine; ATTEND Family Medicine
DX: E87.0 Hyperosmolality and hypernatremia (principal); E86.0 Dehydration; N17.9 Acute kidney failure, unspecified; N39.0 Urinary tract infection, site not specified; E11.9 Type 2 diabetes mellitus without complications; I10 Essential (primary) hypertension; F41.9 Anxiety disorder, unspecified; F32.9 Major depressive disorder, single episode, unspecified; K21.9 Gastro-esophageal reflux disease without esophagitis; E03.9 Hypothyroidism, unspecified; M10.9 Gout, unspecified; Z79.84 Long term (current) use of oral hypoglycemic drugs
CPT/HCPCS: 80048; 80053; 81001; 82550; 82948; 83036; 83690; 84484; 85025; 85027; 85610; 85730; 87040; 87077; 87086; 87186; 93005; 96361; 96365; 96372; G8996-GN; G8997-GN; G8998-GN; J1644; J1815; J2543; J7030; J7070

== ENCOUNTER 2017-02-21 23:38 | Emergency (ER) | payer MEDICARE, OTHER ==
[~2017-02-21] VITALS: Ht 167.6 cm; Wt 75.0 kg
[~2017-02-21 23:38] MED LIST changes: -ALLO300 PO; +ALLO300T2 PO; +CEFU1TAB20 PO; +CELE10TA PO; -CELE10TA9 PO; -CEPH500 PO; +FURO1TAB62 PO; -FURO1TAB93 PO; -GLUCTAB PO; -LEVO100T4 PO; +LEVO100T5 PO; +METF500T PO; +MILK2400 PO; +NUED20CA PO; -POTA-267 PO; +POTA10CA PO; -POTA10IN2 PO; -RANI150 PO; +TUSSLIQ3 PO; +TYLE325T PO; +VERA240C PO; +ZANTTAB PO; -[UNRECOGNIZED DRUG - CODE] PO
[2017-02-21 23:49] VITALS: BP 149/79; PULSE 74; RESP 14; TEMP 98.8; O2SAT 94
[2017-02-21 23:53] VITALS: BP 149/79; PULSE 73; RESP 14; O2SAT 96
[2017-02-22] MEDS ORDERED: DIPHTH/TETANUS/ACEL PERTUSSIS (BOOSTER) 0.5 ML VIAL/PFS IM ONE
--- NOTE | 2017-02-22 00:19 | RADRPT ---
EXAM DATE/TIME: 02/22/2017 00:08 [facility] COMPARISON: CT BRAIN W/O CONTRAST, December 22, 2015, 0:02. INDICATIONS : Trauma, fall. RADIATION DOSE: 32.89 CTDIvol (mGy) MEDICAL HISTORY : Non-responsive. SURGICAL HISTORY : Non-responsive. ENCOUNTER: Initial ACUITY: 1 day PAIN SCALE: 5/10 LOCATION: cranial TECHNIQUE: Multiple contiguous axial images were obtained of the head. Using automated exposure control and adj ustment of the mA and/or kV according to patient size, radiation dose was kept as low as reasonably a chievable to obtain optimal diagnostic quality images. FINDINGS: There is no evidence for intracranial hemorrhage, mass effect, mass lesions, or edema. The visualize d bony structures appear intact. Moderate degree of brain atrophy is seen. Moderate periventricular white matter changes are seen nonspecific mostly consistent with chronic small vessel ischemic change s. There are no signs of acute infarction for technique. There is nasal bone fracture on the right s kalyani not present previously with scalp hematoma in the right frontal region. CONCLUSION: Scalp hematoma in the right frontal region with nasal bone fracture. Ion Dumont MD on February 22, 2017 at 0:15 Board Certified Radiologist. This report was verified electronically.
--- NOTE | 2017-02-22 00:23 | PD ---
HPI . Fall Chief Complaint: Fall Time Seen by Provider: 23:48 Travel History International Travel<30 days: No Contact w/Intl Traveler<30days: No Traveled to known affect area: No History of Present Illness HPI This is a patient with dementia who lives in a care home who presents to us following a fall out of bed. She struck her forehead and nose. She had some epistaxis prior to arrival. The patient is unable to give us any history whatsoever. EMS reports that this is her baseline. PFSH Past Medical History Alzheimer's Disease: Yes Anemia: Yes Arthritis: Yes Anxiety: Yes Depression: Yes Cancer: No Congestive Heart Failure: Yes Cerebrovascular Accident: No Diabetes: Yes Gout: Yes Genitourinary: No Hypertension: Yes Reproductive: No Respiratory: No Immunizations Current: Yes Thyroid Disease: Yes Past Surgical History Joint Replacement: Yes Social History Alcohol Use: No (UNK) Tobacco Use: No (UNK) Substance Use: No Allergies-Medications (Allergen,Severity, Reaction): Coded Allergies: No Known Allergies (Unverified , 02/11/17) Reported Meds & Prescriptions Reported Meds & Active Scripts Active Reported Zantac 150 Maximum Strength (Ranitidine HCl) 150 Mg Tab 150 Mg PO DAILY Verapamil HCl ER (Verapamil HCl) 240 Mg Cap 240 Mg PO DAILY Tylenol (Acetaminophen) 325 Mg Tab 650 Mg PO Q4H PRN Tussin Dm 100-10 mg/5Ml (Dextromethorphan-Guaifenesin) 1 Liq Liq 5 Ml PO Q4HR PRN Seroquel (Quetiapine Fumarate) 25 Mg Tab 25 Mg PO BID Remeron (Mirtazapine) 15 Mg Tab 15 Mg PO HS Potassium Chloride ER (Potassium Chloride) 10 Meq Cap 10 Meq PO BID Nuedexta 20-10 mg (Dextromethorphan HBr-Quinidine) 1 Cap Cap 1 Cap PO BID Metformin (Metformin HCl) 500 Mg Tab 500 Mg PO DAILY With a meal Levothyroxine (Levothyroxine Sodium) 100 Mcg Tab 100 Mcg PO DAILY Lasix (Furosemide) 20 Mg Tab 20 Mg PO DAILY Ibuprofen 800 Mg Tab 800 Mg PO BID Glimepiride 1 Mg Tab 1 Mg PO DAILY Take with breakfast or first main meal Celexa (Citalopram Hydrobromide) 10 Mg Tab 10 Mg PO DAILY Ativan (Lorazepam) 1 Mg Tab 1 Mg PO Q6H PRN Allopurinol 300 Mg Tab 300 Mg PO DAILY Review of Systems ROS Limitations: Other: Physical Exam Narrative GENERAL: Patient is lying on the stretcher immobilized. SKIN: Warm and dry. HEAD: Contusion to the right side of the forehead. Recent nosebleed on the right but bleeding is now controlled. EYES: Pupils equal and round. Extraocular movements are intact. NECK: Trachea midline. Spine is currently immobilized. CARDIOVASCULAR: Regular rate and rhythm. RESPIRATORY: No accessory muscle use. MUSCULOSKELETAL: No obvious deformities. No edema. NEUROLOGICAL: No obvious focal neurological deficits. PSYCHIATRIC: Unable to assess. Data Data Last Documented VS Vital Signs Date Time Temp Pulse Resp B/P Pulse Ox O2 Delivery O2 Flow Rate FiO2 02/21/17 23:53 73 14 149/79 96 Room Air 02/21/17 23:[address] Brain W/O Iv Contrast(Rout) (02/21/17 23:48) Ct Cerv Spine W/O Contrast (02/21/17 23:48) Ct Facial Bones W/O Iv Cont (02/21/17 23:48) Smkc-Bto-Wlzsyz (Booster) Inj (Boostrix (02/22/17 00:00) MDM Medical Decision Making Medical Screen Exam Complete: Yes Emergency Medical Condition: Yes Differential Diagnosis My differential diagnosis of head trauma includes but is not limited to scalp contusion, concussion, intracerebral hemorrhage. Narrative Course Patient presents for evaluation of injury sustained to her head in the fall. Last Impressions Maxillofacial CT 02/21/172347 Signed Impressions: Service Date/Time: Wednesday, February 22, 2017 00:08 - CONCLUSION: 1. Frontal scalp hematoma and right nasal bone fracture. 2. Masslike soft tissue density within left vallecula and direct visualization is suggested. 3. 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 Ion Dumont MD Head CT 02/21/172347 Signed Impressions: Service Date/Time: Wednesday, February 22, 2017 00:08 - CONCLUSION: Scalp hematoma in the right frontal region with nasal bone fracture. Ion Dumont MD Cervical Spine CT 02/21/172347 Signed Impressions: Service Date/Time: Wednesday, February 22, 2017 00:08 - CONCLUSION: 1. Slight thecal sac stenosis C5-6. 2. Significant neural foramina compromise bilaterally C5- C6. 3. Slight neural foramina compromise bilateral C2-C3, left C6-C7 and lateral recess compromise left C2-C3. K. Christopher Dumont MD Diagnosis Primary Impression: Nasal fracture Qualified Code: S02.2XXA - Closed fracture of nasal bone, initial encounter Additional Impression: Forehead contusion Qualified Code: S00.83XA - Forehead contusion, initial encounter Patient Instructions: Facial Contusion (ED), General Instructions, Nasal Fracture (DC) Additional Instructions: Follow up with her primary care provider next week Disposition: 01 DISCHARGE HOME Condition: Stable Christina Castillo MD Feb 22, 2017 00:23
--- NOTE | 2017-02-22 00:28 | RADRPT ---
EXAM DATE/TIME: 02/22/2017 00:08 [facility] COMPARISON: CT CERVICAL SPINE W/O CONTRAST, December 22, 2015, 0:02. INDICATIONS : Trauma, fall. RADIATION DOSE: 20.09 CTDIvol (mGy) MEDICAL HISTORY : Non-responsive. SURGICAL HISTORY : Non-responsive. ENCOUNTER: Initial ACUITY: 1 day PAIN SCALE: Non-responsive LOCATION: neck TECHNIQUE: Volumetric scanning of the cervical spine was performed. Multiplanar reconstructions in the sagittal, coronal and oblique axial planes were performed. Using automated exposure control and adjustment o f the mA and/or kV according to patient size, radiation dose was kept as low as reasonably achievable to obtain optimal diagnostic quality images. FINDINGS: No evidence of subluxation. No definite fracture is seen for technique. There is minimal fluid w ithin the sphenoid sinuses. C2-C3: There is slight neural foramina compromise bilaterally due to bulging disc and hypertrophic changes. Moderate degenerative changes are seen within the disc space and facets. No appreciable thecal sac st enosis is seen. Slight lateral recess compromise is seen on the left due to hypertrophic changes and bulging disc. C3-C4: Slight degenerative changes are seen within the disc space and facets. There is no evidence for any s ignificant compromise to the thecal sac, or the exiting nerve roots. No appreciable thecal sac steno sis is seen. The neural foramina and lateral recess appear patent bilaterally. C4-C5: Moderate degenerative changes are seen within the disc space and facets. Slight bulging disc and hype rtrophic changes are seen with indentation on the thecal sac and no significant compromise to the the pritesh sac or the exiting nerve roots. C5-C6: There is significant neural foramina compromise bilaterally due to bulging disc and hypertrophic ramirez ges. Significant degenerative changes are seen within the disc space and facets. Slight overall theca l sac stenosis is seen due to central disc/osteophyte complex and hypertrophic changes. C6-C7: There is slight neural foramina compromise on the left due to asymmetrical bulging disc and hypertrop hic changes. Significant degenerative changes are seen within the disc space and facets. Slight bulgi ng disc and hypertrophic changes are seen with indentation on the thecal sac and no significant compr omise to the thecal sac. C7-T1: There is no evidence for any significant compromise to the thecal sac, or the exiting nerve roots. N o appreciable thecal sac stenosis is seen. The neural foramina and lateral recess appear patent bila terally. CONCLUSION: 1. Slight thecal sac stenosis C5-6. 2. Significant neural foramina compromise bilaterally C5-C6. 3. Slight neural foramina compromise bilateral C2-C3, left C6-C7 and lateral recess compromise left C 2-C3. Ion Dumont MD on February 22, 2017 at 0:20 Board Certified Radiologist. This report was verified electronically.
--- NOTE | 2017-02-22 00:32 | RADRPT ---
EXAM DATE/TIME: 02/22/2017 00:08 [facility] COMPARISON: CT CERVICAL SPINE W/O CONTRAST, February 22, 2017, 0:08. CT BRAIN W/O CONTRAST, February 22, 2017, 0:08. INDICATIONS : Trauma, fall. RADIATION DOSE: 29.45 CTDIvol (mGy) MEDICAL HISTORY : Non-responsive. SURGICAL HISTORY : Non-responsive. ENCOUNTER: Initial ACUITY: 1 day PAIN SCORE: Non-responsive LOCATION: facial TECHNIQUE: Volumetric scanning of the facial bones was performed. Using automated exposure control and adjustme nt of the mA and/or kV according to patient size, radiation dose was kept as low as reasonably achiev able to obtain optimal diagnostic quality images. FINDINGS: There is a scalp hematoma in the right frontal region with nasal bone fracture on the right. There is mild mucoperiosteal thickening within some of the eithmoid air cells and there is mild fluid within the sphenoid sinus. There is masslike soft tissue density within the vallecula on the left side which measures 1.6 cm in size could potentially be artifactual and/or due to mucous secretions at this sit e, however a mass is difficult to exclude. There are degenerative changes within bilateral temporoman dibular joints to a significant degree. CONCLUSION: 1. Frontal scalp hematoma and right nasal bone fracture. 2. Masslike soft tissue density within left vallecula and direct visualization is suggested. 3. 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 Ion Dumont MD on February 22, 2017 at 0:27 Board Certified Radiologist. This report was verified electronically.
[2017-02-22 01:20] VITALS: BP 166/88; PULSE 82; RESP 12; O2SAT 100
[2017-02-22 02:40] VITALS: BP 144/78; PULSE 76; RESP 18; O2SAT 94
[2017-02-22 04:15] VITALS: BP 154/82; PULSE 60; RESP 16; O2SAT 99
[2017-02-22 05:30] VITALS: BP 136/74; PULSE 68; RESP 14; O2SAT 98
== END 2017-02-22 07:00 | disposition home or self-care (01) ==
LOC: NEPC 23:38
DX: S02.2XXA Fracture of nasal bones, initial encounter for closed fracture (principal); S00.83XA Contusion of other part of head, initial encounter; F03.90 Unspecified dementia, unspecified severity, without behavioral disturbance, psychotic disturbance, mood disturbance, and anxiety; I10 Essential (primary) hypertension; W06.XXXA Fall from bed, initial encounter; Y92.122 Bedroom in nursing home as the place of occurrence of the external cause
CPT/HCPCS: 70450; 70486; 72125; 90471; 90715

== ENCOUNTER 2017-12-13 01:00 | Inpatient (IN) | payer MEDICARE, OTHER ==
[2017-12-13] VITALS (13 sets, daily range): BP systolic 102–174; BP diastolic 71–123; PULSE 77–176; RESP 16–38; TEMP 97.5–99.1; O2SAT 83–99
[~2017-12-13 01:00] MED LIST changes: -CEFU1TAB20 PO; +IBUP1TAB7 PO; -IBUP800T23 PO; -MILK2400 PO
--- NOTE | 2017-12-13 02:23 | RADRPT ---
EXAM DATE/TIME: 12/13/2017 01:41 [facility] COMPARISON: CT BRAIN W/O CONTRAST, February 22, 2017, 0:08. INDICATIONS : Trauma, possible fall. RADIATION DOSE: 53.79 CTDIvol (mGy) MEDICAL HISTORY : Non-responsive. SURGICAL HISTORY : Non-responsive. ENCOUNTER: Initial ACUITY: 1 day PAIN SCALE: Non-responsive LOCATION: cranial TECHNIQUE: Multiple contiguous axial images were obtained of the head. Using automated exposure control and adj ustment of the mA and/or kV according to patient size, radiation dose was kept as low as reasonably a chievable to obtain optimal diagnostic quality images. DICOM format image data is available electro nically for review and comparison. FINDINGS: CEREBRUM: Moderate atrophic changes again noted with chronic small vessel ischemic change. The ventricular syst em remains prominent but unchanged. No evidence of midline shift, mass lesion, hemorrhage or acute i nfarction. No extra-axial fluid collections are seen. POSTERIOR FOSSA: The cerebellum and brainstem are intact. The 4th ventricle is midline. The cerebellopontine angle i s unremarkable. EXTRACRANIAL: The visualized portion of the orbits is intact. SKULL: The calvaria is intact. No evidence of skull fracture. CONCLUSION: Stable noncontrast head CT with no evidence of hemorrhage or mass effect. Bernardo Fabian MD on December 13, 2017 at 2:19 Board Certified Radiologist. This report was verified electronically.
--- NOTE | 2017-12-13 02:27 | RADRPT ---
EXAM DATE/TIME: 12/13/2017 01:41 [facility] COMPARISON: CT FACIAL BONES W/O CONTRAST, February 22, 2017, 0:08. INDICATIONS : Trauma, possible fall. RADIATION DOSE: 36.20 CTDIvol (mGy) MEDICAL HISTORY : Non-responsive. SURGICAL HISTORY : Non-responsive. ENCOUNTER: Initial ACUITY: 1 day PAIN SCORE: Non-responsive LOCATION: Left facial TECHNIQUE: Volumetric scanning of the facial bones was performed. Using automated exposure control and adjustme nt of the mA and/or kV according to patient size, radiation dose was kept as low as reasonably achiev able to obtain optimal diagnostic quality images. DICOM format image data is available electronicall y for review and comparison. FINDINGS: ORBITS: The orbital and infraorbital osseous structures are intact. The retroconal structures have a normal configuration. No radiopaque foreign bodies are seen. NASAL BONE: The nasal bone and maxillary spine are intact ZYGOMATIC ARCHES: Symmetric without evidence of fracture. SINUSES: The maxillary, ethmoid and frontal sinuses are intact. No air-fluid levels seen. NASAL CAVITY: The nasal septum is intact and midline. The lacrimal ducts are intact. SOFT TISSUES: No radiopaque foreign bodies seen. There is soft tissue swelling over the left orbit and frontal bone . INTRACRANIAL: No intracranial air seen. CRIBIFORM PLATE: Grossly intact. CONCLUSION: Soft tissue swelling over the left orbit and frontal bone with no fracture or malalignment. Bernardo Fabian MD on December 13, 2017 at 2:23 Board Certified Radiologist. This report was verified electronically.
--- NOTE | 2017-12-13 02:39 | PD ---
HPI Chief Complaint: Medical Clearance Time Seen by Provider: 01:16 Travel History International Travel<30 days: No Contact w/Intl Traveler<30days: No Traveled to known affect area: No History of Present Illness HPI Patient from senior care apparently the and weekend staff found her to have bruises on her legs and her face and thinks she could have fallen out of bed but they cannot explain the bruises on her body and they sent her to our ER at 1 AM in the night. Paramedics said they found her lying off of the mattress that she was on the floor and there is a nightstand by the bed on the same side that she has a bruise to her left supraorbital area. Patient is demented and a poor historian she is not complaining she is sleeping she is not in any obvious distress ROS and HPI is limited by patient's dementia and lack of good history. , Pt was weeping in the exam room but minimally verbal , tongue excessively dry , like baked earth, PFSH Past Medical History Alzheimer's Disease: Yes Anemia: Yes Arthritis: Yes Anxiety: Yes Depression: Yes Cancer: No Congestive Heart Failure: Yes Cerebrovascular Accident: No Diabetes: Yes Patient Takes Glucophage: No (UNKNOWN) Gout: Yes Genitourinary: No Hypertension: Yes Reproductive: No Respiratory: No Immunizations Current: Yes Thyroid Disease: Yes Past Surgical History Joint Replacement: Yes Other Surgery: Yes Social History Alcohol Use: No (UNK) Tobacco Use: No (UNK) Substance Use: No Allergies-Medications (Allergen,Severity, Reaction): Coded Allergies: No Known Allergies (Unverified Allergy, Unknown, 12/13/17) Reported Meds & Prescriptions Reported Meds & Active Scripts Active Reported Zantac 150 Maximum Strength (Ranitidine HCl) 150 Mg Tab 150 Mg PO DAILY Verapamil HCl ER (Verapamil HCl) 240 Mg Cap 240 Mg PO DAILY Tylenol (Acetaminophen) 325 Mg Tab 650 Mg PO Q4H PRN Tussin Dm 100-10 mg/5Ml (Dextromethorphan-Guaifenesin) 1 Liq Liq 5 Ml PO Q4HR PRN Seroquel (Quetiapine Fumarate) 25 Mg Tab 25 Mg PO BID Remeron (Mirtazapine) 15 Mg Tab 15 Mg PO HS Potassium Chloride ER (Potassium Chloride) 10 Meq Cap 10 Meq PO BID Nuedexta 20-10 mg (Dextromethorphan HBr-Quinidine) 1 Cap Cap 1 Cap PO BID Metformin (Metformin HCl) 500 Mg Tab 500 Mg PO DAILY With a meal Levothyroxine (Levothyroxine Sodium) 100 Mcg Tab 100 Mcg PO DAILY Lasix (Furosemide) 20 Mg Tab 20 Mg PO DAILY Ibuprofen 800 Mg Tab 800 Mg PO BID Glimepiride 1 Mg Tab 1 Mg PO DAILY Take with breakfast or first main meal Celexa (Citalopram Hydrobromide) 10 Mg Tab 10 Mg PO DAILY Ativan (Lorazepam) 1 Mg Tab 1 Mg PO Q6H PRN Allopurinol 300 Mg Tab 300 Mg PO DAILY Review of Systems ROS Limitations: Altered Mental Status, Poor Historian Physical Exam Narrative GENERAL: non verbal demented and appears tearful and dry tongue SKIN: Warm and dry. bruises to the thigh left anterior and facial bruise to left supraorbital eyebrow area HEAD: + traumatic. Normocephalic. EYES: Pupils equal and round. No scleral icterus. No injection or drainage. ENT: severely dry tongue NECK: Trachea midline. No JVD. CARDIOVASCULAR: Regular rate and rhythm. RESPIRATORY: No accessory muscle use. Clear to auscultation. Breath sounds equal bilaterally. GASTROINTESTINAL: Abdomen NO Peg soft, non-tender, nondistended. Hepatic and splenic margins not palpable. MUSCULOSKELETAL: Extremities bruise to left thigh . NEUROLOGICAL: Awake and alert. non verbal tearful crying and laying flat has widening body habitus of someone who does leave bed . Data Data Last Documented VS Vital Signs Date Time Temp Pulse Resp B/P (MAP) Pulse Ox O2 Delivery O2 Flow Rate FiO2 12/13/17 06:27 107 16 162/92 (115) 97 Room Air 12/13/17 01:[address] Brain W/O Iv Contrast(Rout) (12/13/17 ) Ct Facial Bones W/O Iv Cont (12/13/17 ) Complete Blood Count With Diff (12/13/17 02:57) Comprehensive Metabolic Panel (12/13/17 02:57) Creatine Kinase (Cpk) (12/13/17 02:57) Lipase (12/13/17 02:57) Sodium Chlorid 0.9% 500 Ml Inj (Ns 500 M (12/13/17 03:15) Urinalysis - C+S If Indicated (12/13/17 03:28) Chest, Single Ap (12/13/17 ) Urinary Catheter Management FREEMAN.Q8H (12/13/17 04:03) Sodium Chlor 0.9% 1000 Ml Inj (Ns 1000 M (12/13/17 05:00) Admit Order (Ed Use Only) (12/13/17 06:45) Labs Laboratory Tests Test 12/13/17 03:05 12/13/17 04:45 White Blood Count 21.7 TH/MM3 Red Blood Count 4.51 MIL/MM3 Hemoglobin 14.7 GM/DL Hematocrit 45.3 % Mean Corpuscular Volume 100.5 FL Mean Corpuscular Hemoglobin 32.5 PG Mean Corpuscular Hemoglobin Concent 32.3 % Red Cell Distribution Width 15.5 % Platelet Count 294 TH/MM3 Mean Platelet Volume 10.9 FL Neutrophils (%) (Auto) 72.7 % Lymphocytes (%) (Auto) 18.9 % Monocytes (%) (Auto) 7.2 % Eosinophils (%) (Auto) 0.5 % Basophils (%) (Auto) 0.7 % Neutrophils # (Auto) 15.8 TH/MM3 Lymphocytes # (Auto) 4.1 TH/MM3 Monocytes # (Auto) 1.6 TH/MM3 Eosinophils # (Auto) 0.1 TH/MM3 Basophils # (Auto) 0.1 TH/MM3 CBC Comment DIFF FINAL Differential Comment Blood Urea Nitrogen 113 MG/DL Creatinine 2.83 MG/DL Random Glucose 152 MG/DL Total Protein 7.5 GM/DL Albumin 3.1 GM/DL Calcium Level 8.9 MG/DL Alkaline Phosphatase 153 U/L Aspartate Amino Transf (AST/SGOT) 25 U/L Alanine Aminotransferase (ALT/SGPT) 35 U/L Total Bilirubin 0.5 MG/DL Sodium Level 167 MEQ/L Potassium Level 3.5 MEQ/L Chloride Level 127 MEQ/L Carbon Dioxide Level 29.0 MEQ/L Anion Gap 11 MEQ/L Estimat Glomerular Filtration Rate 16 ML/MIN Total Creatine Kinase 163 U/L Lipase 99 U/L Thyroid Stimulating Hormone 3rd Gen 0.322 uIU/ML Urine Color YELLOW Urine Turbidity CLEAR Urine pH 5.0 Urine Specific [place] 1.016 Urine Protein NEG mg/dL Urine Glucose (UA) NEG mg/dL Urine Ketones NEG mg/dL Urine Occult Blood NEG Urine Nitrite NEG Urine Bilirubin NEG Urine Urobilinogen LESS THAN 2.0 MG/DL Urine Leukocyte Esterase NEG Urine WBC 1 /hpf Urine Squamous Epithelial Cells 1 /hpf Microscopic Urinalysis Comment CATH-CULT NOT IND MDM Medical Decision Making Medical Screen Exam Complete: Yes Emergency Medical Condition: Yes Differential Diagnosis trauma to face and thigh from fall from bed or assault or spontaneous hemorrhage or uti to weakness to fall , other Narrative Course CT head and face negative fro fracture no bleed,--> labs reveal severe dehydration Na 167 elevated creatinine 2.8 and pt has WBC 21 but no infectious source , possible demargination slow IV fluid correction with NS 500 CC BOLUS THEN 100cc /hr admit further eval Diagnosis Primary Impression: Hypernatremia Additional Impression: DEHYDRATION Admitting Information Admitting Physician Requests: Admit Bishop Veloz MD Dec 13, 2017 02:39
[2017-12-13] MEDS ORDERED: SODIUM CHLORID 0.9% 500 ML INJ 500 ML IV ONE (03:15)
[2017-12-13 03:24] LABS: AUTOMATED NEUTROPHIL # 15.8 TH/MM3 (1.8-7.7); BASOPHIL # 0.1 TH/MM3 (0-0.2); BASOPHIL % 0.7 % (0.0-2.0); EOSINOPHIL # 0.1 TH/MM3 (0-0.4); EOSINOPHIL % 0.5 % (0.0-4.0); HEMATOCRIT 45.3 % (35.0-46.0); HEMOGLOBIN 14.7 GM/DL (11.6-15.3); LYMPH % 18.9 % (9.0-44.0); LYMPHOCYTE # 4.1 TH/MM3 (1.0-4.8); MEAN CELL VOLUME 100.5 FL (80.0-100.0); MEAN CORPUSCULAR HEMOGLOBIN 32.5 PG (27.0-34.0); MEAN CORPUSCULAR HGB CONC 32.3 % (32.0-36.0); MEAN PLATELET VOLUME 10.9 FL (7.0-11.0); MONO % 7.2 % (0.0-8.0); MONOCYTE # 1.6 TH/MM3 (0-0.9); NEUT % 72.7 % (16.0-70.0); PLATELET COUNT 294 TH/MM3 (150-450); RED BLOOD COUNT 4.51 MIL/MM3 (4.00-5.30); RED CELL DISTRIBUTION WIDTH 15.5 % (11.6-17.2); WHITE BLOOD COUNT 21.7 TH/MM3 (4.0-11.0)
[2017-12-13 03:39] LABS: ALBUMIN 3.1 GM/DL (3.4-5.0); ALKALINE PHOSPHATASE 153 U/L (45-117); ALT (GPT) 35 U/L (10-53); AST (GOT) 25 U/L (15-37); BLOOD UREA NITROGEN 113 MG/DL (7-18); CALCIUM 8.9 MG/DL (8.5-10.1); CHLORIDE 127 MEQ/L (98-107); CREATININE 2.83 MG/DL (0.50-1.00); GLOMERULAR FILTRATION RATE 16 ML/MIN (>89); GLUCOSE,RANDOM 152 MG/DL (74-106); TOTAL BILIRUBIN ADULT 0.5 MG/DL (0.2-1.0); TOTAL PROTEIN 7.5 GM/DL (6.4-8.2)
[2017-12-13 03:41] LABS: SODIUM (NA) 167 MEQ/L (136-145)
--- NOTE | 2017-12-13 04:18 | RADRPT ---
EXAM DATE/TIME: 12/13/2017 03:33 [place] COMPARISON: CHEST SINGLE AP, December 21, 2015, 23:34. INDICATIONS : Short of breath. MEDICAL HISTORY : Unobtainable. SURGICAL HISTORY : Unobtainable. ENCOUNTER: Initial ACUITY: 1 day PAIN SCORE: Non-responsive. LOCATION: Bilateral chest FINDINGS: A single view of the chest demonstrates the lungs to be symmetrically aerated without evidence of mas s, infiltrate or effusion. The cardiomediastinal contours are unremarkable. Atherosclerotic changes are again noted in the aorta. Osseous structures are intact. CONCLUSION: No acute disease. Bernardo Fabian MD on December 13, 2017 at 4:15 Board Certified Radiologist. This report was verified electronically.
[2017-12-13] MEDS ORDERED: SODIUM CHLOR 0.9% 1000 ML INJ 1,000 ML IV SCH (05:00)
[2017-12-13 05:24] LABS: BILIRUBIN, URINE NEG (NEG); BLOOD, URINE NEG (NEG); GLUCOSE,URINE NEG (NEG); KETONE, URINE NEG (NEG); NITRITE,URINE NEG (NEG); SQUAMOUS EPITHELIAL CELL URINE 1 /hpf (0-5); URINE COLOR YELLOW (YELLW/STRAW); URINE LEUKOCYTE ESTERASE NEG (NEG)
[2017-12-13] MEDS ORDERED: BISACODYL 10 MG SUPP RECTAL PRN (11:15)
[2017-12-13] MEDS ORDERED: LACTULOSE SYRUP 20 GM/30 ML CUP PO PRN (11:15)
[2017-12-13] MEDS ORDERED: SENNOSIDES 8.6 MG TAB PO PRN (11:15)
[2017-12-13] MEDS ORDERED: DEXTROSE 50% IN WATER 50 ML VIAL(D50) IV PUSH PRN (11:15)
[2017-12-13] MEDS ORDERED: CHLORHEXIDINE GLUCONATE 2 % 1 PACK (2 CLOTHS) TOP PRN (11:15)
[2017-12-13] MEDS ORDERED: MAGNESIUM HYDROXIDE SUSP 30 ML CUP PO PRN (11:15)
[2017-12-13] MEDS ORDERED: GLUCAGON 1 MG/ML VIAL OTHER PRN (11:15)
[2017-12-13] MEDS ORDERED: RESP: ALBUTEROL 2.5 MG/IPRATROPIUM 0.5 MG NEB (PRN) INH (11:15)
[2017-12-13] MEDS ORDERED: SODIUM CHLOR 0.9% 1000 ML INJ 1,000 ML IV ONE ×2 (11:15)
[2017-12-13] MEDS ORDERED: MISCELLANEOUS NURSING INFORMATION XX SCH (11:15)
[2017-12-13] MEDS: FAMOTIDINE 20 MG/2 ML VIAL IV PUSH SCH ×2 (11:51→21:01)
[2017-12-13] MEDS: INSULIN NovoLIN REGULAR SUPPLEMENTAL SCALE SQ SCH ×2 (12:00→18:00)
--- NOTE | 2017-12-13 12:23 | MH ---
cc: Rocio Rueda MD DATE OF ADMISSION: 12/13/2017 HISTORY OF PRESENT ILLNESS: The patient is an 87-year-old female with past medical history of Alzheimer's dementia, diabetes mellitus, hypothyroidism, GERD, anxiety/depression and CHF. She presented to [facility] ED from a local correction after the weekend staff found her to have bruises on her legs and face and questionable fall. When the paramedics arrived, they found her lying off of the mattress on the floor and that she has a bruise to her left supraorbital area. On arrival to the ER, she was tachycardic and her laboratory data showed a severe hypernatremia with a sodium level of 167 and acute renal failure with a BUN of 113, creatinine 2.83. In addition, she has leukocytosis with a WBC of 21.7. The patient underwent CT scan of the brain which showed no evidence of any hemorrhage or mass effect. CT of the facial bones showed soft tissue swelling over the left orbit and frontal bone with no fracture or malalignment. A chest x-ray in the ED showed no acute disease. In the ER, she was given 500 bolus of NS. The patient is minimally verbal and most of the history was obtained from reviewing medical records. PAST MEDICAL HISTORY: Significant for hypothyroidism, diabetes, GERD, Alzheimer's dementia, anxiety/depression, and CHF. PAST SURGICAL HISTORY: Previous joint replacement. ALLERGIES: NO KNOWN DRUG ALLERGIES. SOCIAL HISTORY: The patient is a resident of a local correction. FAMILY HISTORY: Unobtainable. REVIEW OF SYSTEMS: As per HPI. Review of systems limited as the patient is a poor historian. REPORTED MEDICATIONS: 1. Verapamil 2. Ibuprofen. 3. Celexa. 4. Remeron. 5. Seroquel. 6. Ativan. 7. Lasix. 8. Zantac. 9. Metformin. 10. Glimepiride. 12. Levothyroxine. 13. Allopurinol. PHYSICAL EXAMINATION: GENERAL: An 87-year-old female lying in bed, in no acute respiratory distress, on room air oxygen. VITAL SIGNS: Afebrile, pulse of 94, respiratory rate of 18, blood pressure 146/71, saturation 97% on room air. HEENT: Atraumatic, normocephalic. Pupils are equal, round, reactive to light and accommodation. Extraocular muscles intact. Severely dry tongue. Bruises/ecchymosis noted in left supraorbital area. NECK: Supple. No JVD, adenopathy, or thyromegaly. Trachea in the midline. CARDIOVASCULAR: Regular rate and rhythm. Normal S1, S2. No murmurs, rubs or gallops heard. PULMONARY: Bilateral equal air entry. No rales or wheezing. ABDOMEN: Soft, nontender. No distention. Positive bowel sounds. EXTREMITIES: No cyanosis, clubbing or edema. She has multiple bruises noted to the thigh left anterior and facial bruises. NEUROLOGIC: No focal sensory deficit. LABORATORY DATA: WBC 21.7, hemoglobin 14, hematocrit 45, platelet count 294. Sodium 167, potassium 3.5, chloride 127, CO2 of 29, BUN 113, creatinine 2.83, glucose 152, alkaline phosphatase 153, total bilirubin 0.5, AST 25, ALT 35, albumin 3.1, lipase 99. Urinalysis negative for nitrite, leukocyte esterase, 1 WBC. IMAGING STUDIES: Chest x-ray showed no evidence of any acute disease. CT scan of the brain showed no acute intracranial process. CT facial bones showed soft tissue swelling over the left orbit and frontal bone with no fracture or malalignment. IMPRESSION: 1. Hypernatremia. 2. Acute kidney injury. 3. Severe dehydration. 4. Status post fall. 5. Soft tissue swelling over the left orbit. 6. Leukocytosis. 7. History of Alzheimer's dementia. 8. Hypothyroidism. 9. Diabetes. 10. Gastroesophageal reflux disease. 11. Hypertension. RECOMMENDATIONS: 1. Monitor neuro status closely and avoid any sedatives. CT scan of the brain in the ED negative for acute intracranial process and CT scan of the facial bones showed soft tissue swelling over the left orbit. 2. Oxygen p.r.n. to maintain sats above 92%. 3. Bronchodilators in the form of DuoNeb q.4 hours p.r.n. for shortness of breath. 4. Monitor heart rate and blood pressure closely and maintain MAP greater than 65 mmHg. She was given NS 500 bolus in the ED. Will give additional 2 liter boluses of NS followed by maintenance fluids D5W normal saline at 84 mL an hour. 5. Monitor renal function, I's and O's and avoid nephrotoxins. Electrolyte replacement as needed. 6. IV fluids as stated above. We will repeat BMP in 6 hours post-hydration. 7. Keep n.p.o. for now placed on Pepcid for GI prophylaxis and with underlying history of disease. I will consult speech therapy for evaluation. 8. We will hold off on antibiotics at this time as there is no evidence of any infectious process. A chest x-ray in the ED negative for acute disease and her urinalysis showed no evidence of UTI. 9. Leukocytosis, likely stress related. We will repeat CBC and rose culture if spikes fever. 10. Place on sliding scale insulin with Accu-Cheks for glycemic control and will obtain a baseline TSH level. Resume Synthroid at home dose. 11. Gastrointestinal prophylaxis with Pepcid 10 mg IV q.12 hours and DVT prophylaxis with SCDs for now. 12. Further recommendations will be based on hospital course. MD DMITRIY Rubi/DAYNA , 11:46 AM , 12:21 PM
[2017-12-13] MEDS: DEXTROSE 5% IN WATE 1000ML INJ 1,000 ML IV SCH ×2 (12:41→21:00)
[2017-12-13 14:40] LABS: AUTOMATED NEUTROPHIL # 12.2 TH/MM3 (1.8-7.7); BASOPHIL # 0.1 TH/MM3 (0-0.2); BASOPHIL % 0.5 % (0.0-2.0); EOSINOPHIL # 0.1 TH/MM3 (0-0.4); EOSINOPHIL % 0.4 % (0.0-4.0); HEMATOCRIT 39.1 % (35.0-46.0); HEMOGLOBIN 12.8 GM/DL (11.6-15.3); LYMPH % 24.4 % (9.0-44.0); LYMPHOCYTE # 4.4 TH/MM3 (1.0-4.8); MEAN CELL VOLUME 101.9 FL (80.0-100.0); MEAN CORPUSCULAR HEMOGLOBIN 33.3 PG (27.0-34.0); MEAN CORPUSCULAR HGB CONC 32.7 % (32.0-36.0); MEAN PLATELET VOLUME 10.7 FL (7.0-11.0); MONO % 6.9 % (0.0-8.0); MONOCYTE # 1.2 TH/MM3 (0-0.9); NEUT % 67.8 % (16.0-70.0); PLATELET COUNT 273 TH/MM3 (150-450); RED BLOOD COUNT 3.84 MIL/MM3 (4.00-5.30); RED CELL DISTRIBUTION WIDTH 15.7 % (11.6-17.2)
[2017-12-13 15:12] LABS: OVALOCYTES 1+ (NORMAL)
[2017-12-13 15:14] LABS: CALCIUM 8.1 MG/DL (8.5-10.1); CREATININE 1.98 MG/DL (0.50-1.00)
[2017-12-13] MEDS: DILTIAZEM HCL 60 MG TAB PO SCH ×3 (16:00→21:02)
[2017-12-13] MEDS: POTASSIUM CHLOR 20 MEQ PREMIX 100 ML IV SCH ×2 (16:28→18:31)
[2017-12-13] MEDS ORDERED: METOPROLOL TARTRATE 5 MG/5 ML VIAL IV PUSH PRN (16:45)
[2017-12-13] MEDS: DOCUSATE SODIUM 50 MG/SENNA 8.6 MG TAB PO SCH (21:00)
[2017-12-13 23:12] LABS: BICARBONATE 28.2 MEQ/L (21.0-32.0); CREATININE 1.77 MG/DL (0.50-1.00)
[2017-12-14] VITALS (11 sets, daily range): BP systolic 120–134; BP diastolic 58–76; PULSE 69–159; RESP 16–20; TEMP 98–99.1; O2SAT 83–100
[2017-12-14] MEDS: CHLORHEXIDINE GLUCONATE 2 % 1 PACK (2 CLOTHS) TOP SCH (04:00)
[2017-12-14] MEDS: DILTIAZEM HCL 60 MG TAB PO SCH ×5 (04:00→22:00)
[2017-12-14 04:25] LABS: AUTOMATED NEUTROPHIL # 12.4 TH/MM3 (1.8-7.7); BASOPHIL % 0.2 % (0.0-2.0); EOSINOPHIL # 0.4 TH/MM3 (0-0.4); EOSINOPHIL % 2.3 % (0.0-4.0); HEMATOCRIT 38.3 % (35.0-46.0); HEMOGLOBIN 12.2 GM/DL (11.6-15.3); LYMPHOCYTE # 4.9 TH/MM3 (1.0-4.8); MEAN CELL VOLUME 101.2 FL (80.0-100.0); MEAN CORPUSCULAR HEMOGLOBIN 32.3 PG (27.0-34.0); MEAN CORPUSCULAR HGB CONC 31.9 % (32.0-36.0); MEAN PLATELET VOLUME 10.9 FL (7.0-11.0); MONOCYTE # 1.1 TH/MM3 (0-0.9); NEUT % 65.5 % (16.0-70.0); PLATELET COUNT 222 TH/MM3 (150-450); RED BLOOD COUNT 3.78 MIL/MM3 (4.00-5.30); RED CELL DISTRIBUTION WIDTH 15.7 % (11.6-17.2)
[2017-12-14] MEDS: DEXTROSE 5% IN WATE 1000ML INJ 1,000 ML IV SCH ×3 (05:19→20:33)
[2017-12-14 05:30] LABS: ALBUMIN 2.4 GM/DL (3.4-5.0); ALKALINE PHOSPHATASE 119 U/L (45-117); ALT (GPT) 28 U/L (10-53); AST (GOT) 32 U/L (15-37); BICARBONATE 25.9 MEQ/L (21.0-32.0); BLOOD UREA NITROGEN 75 MG/DL (7-18); CALCIUM 8.1 MG/DL (8.5-10.1); CHLORIDE 128 MEQ/L (98-107); CREATININE 1.59 MG/DL (0.50-1.00); GLOMERULAR FILTRATION RATE 31 ML/MIN (>89); GLUCOSE,RANDOM 107 MG/DL (74-106); TOTAL BILIRUBIN ADULT 0.5 MG/DL (0.2-1.0); TOTAL PROTEIN 5.9 GM/DL (6.4-8.2)
[2017-12-14 05:33] LABS: SODIUM (NA) 164 MEQ/L (136-145)
[2017-12-14] MEDS: INSULIN NovoLIN REGULAR SUPPLEMENTAL SCALE SQ SCH ×4 (05:35→17:56)
--- NOTE | 2017-12-14 08:52 | HHI.CCPN ---
Subjective Remarks/Hospital Course The patient is an 87-year-old female with past medical history of Alzheimer's dementia, diabetes mellitus, hypothyroidism, GERD, anxiety/depression and CHF. She presented to [facility] ED from a local fpc after the weekend staff found her to have bruises on her legs and face and questionable fall. When the paramedics arrived, they found her lying off of the mattress on the floor and that she has a bruise to her left supraorbital area. On arrival to the ER, she was tachycardic and her laboratory data showed a severe hypernatremia with a sodium level of 167 and acute renal failure with a BUN of 113, creatinine 2.83. In addition, she has leukocytosis with a WBC of 21.7. The patient underwent CT scan of the brain which showed no evidence of any hemorrhage or mass effect. CT of the facial bones showed soft tissue swelling over the left orbit and frontal bone with no fracture or malalignment. A chest x-ray in the ED showed no acute disease. In the ER, she was given 500 bolus of NS. The patient is minimally verbal and most of the history was obtained from reviewing medical records. 12/14 Patient seems little more awake and alert today. Renal function is improving with Cr:1.59 from 1.7 last night. Afebrile. Objective Vital Signs Date Time Temp Pulse Resp B/P (MAP) Pulse Ox O2 Delivery O2 Flow Rate FiO2 12/14/17 06:00 70 12/14/17 04:00 98.6 18 134/62 (86) 100 12/13/17 08:25 Room Air Intake and Output 12/14/17 12/14/17 12/15/17 08:00 16:00 00:00 Intake Total 1000 ml Output Total 450 ml Balance 550 ml Result Diagram: 12/14/17 0329 12/14/17 0329 Other Results Laboratory Tests Test 12/13/17 12:14 12/13/17 14:15 12/13/17 22:16 12/14/17 03:29 Nasal Screen MRSA (PCR) MRSA NOT DETECTED White Blood Count 18.0 TH/MM3 19.0 TH/MM3 Red Blood Count 3.84 MIL/MM3 3.78 MIL/MM3 Hemoglobin 12.8 GM/DL 12.2 GM/DL Hematocrit 39.1 % 38.3 % Mean Corpuscular Volume 101.9 FL 101.2 FL Mean Corpuscular Hemoglobin 33.3 PG 32.3 PG Mean Corpuscular Hemoglobin Concent 32.7 % 31.9 % Red Cell Distribution Width 15.7 % 15.7 % Platelet Count 273 TH/MM3 222 TH/MM3 Mean Platelet Volume 10.7 FL 10.9 FL Neutrophils (%) (Auto) 67.8 % 65.5 % Lymphocytes (%) (Auto) 24.4 % 26.0 % Monocytes (%) (Auto) 6.9 % 6.0 % Eosinophils (%) (Auto) 0.4 % 2.3 % Basophils (%) (Auto) 0.5 % 0.2 % Neutrophils # (Auto) 12.2 TH/MM3 12.4 TH/MM3 Lymphocytes # (Auto) 4.4 TH/MM3 4.9 TH/MM3 Monocytes # (Auto) 1.2 TH/MM3 1.1 TH/MM3 Eosinophils # (Auto) 0.1 TH/MM3 0.4 TH/MM3 Basophils # (Auto) 0.1 TH/MM3 0.0 TH/MM3 CBC Comment AUTO DIFF DIFF FINAL Differential Comment AUTO DIFF CONFIRMED Platelet Estimate NORMAL Platelet Morphology Comment NORMAL Ovalocytes 1+ Blood Urea Nitrogen 87 MG/DL 82 MG/DL 75 MG/DL Creatinine 1.98 MG/DL 1.77 MG/DL 1.59 MG/DL Random Glucose 146 MG/DL 139 MG/DL 107 MG/DL Calcium Level 8.1 MG/DL 8.0 MG/DL 8.1 MG/DL Sodium Level 168 MEQ/L 167 MEQ/L 164 MEQ/L Potassium Level 2.9 MEQ/L 3.6 MEQ/L 3.1 MEQ/L Chloride Level 134 MEQ/L 133 MEQ/L 128 MEQ/L Carbon Dioxide Level 26.0 MEQ/L 28.2 MEQ/L 25.9 MEQ/L Anion Gap 8 MEQ/L 6 MEQ/L 10 MEQ/L Estimat Glomerular Filtration Rate 24 ML/MIN 27 ML/MIN 31 ML/MIN Total Protein 5.9 GM/DL Albumin 2.4 GM/DL Alkaline Phosphatase 119 U/L Aspartate Amino Transf (AST/SGOT) 32 U/L Alanine Aminotransferase (ALT/SGPT) 28 U/L Total Bilirubin 0.5 MG/DL Imaging Last Impressions Maxillofacial CT 12/13/17 0000 Signed Impressions: Service Date/Time: Wednesday, December 13, 2017 01:41 - CONCLUSION: Soft tissue swelling over the left orbit and frontal bone with no fracture or malalignment. Bernardo Fabian MD Head CT 12/13/17 0000 Signed Impressions: Service Date/Time: Wednesday, December 13, 2017 01:41 - CONCLUSION: Stable noncontrast head CT with no evidence of hemorrhage or mass effect. Bernardo Fabian MD Chest X-Ray 12/13/17 0000 Signed Impressions: Service Date/Time: Wednesday, December 13, 2017 03:33 - CONCLUSION: No acute disease. Bernardo Fabian MD Objective Remarks GENERAL: Patient is 87 yo lying in bed in NAD SKIN: Warm and dry. HEAD: Normocephalic. EYES: No scleral icterus. No injection or drainage. NECK: Supple, trachea midline. No JVD or lymphadenopathy. CARDIOVASCULAR: Regular rate and rhythm without murmurs, gallops, or rubs. RESPIRATORY: Breath sounds equal bilaterally. No accessory muscle use. GASTROINTESTINAL: Abdomen soft, non-tender, nondistended. MUSCULOSKELETAL: No cyanosis, or edema. Neuro: More awake and alert today A/P Assessment and Plan 1. Hypernatremia. 2. Acute kidney injury...improving 3. Severe dehydration. 4. Status post fall. 5. Soft tissue swelling over the left orbit. 6. Leukocytosis. 7. History of Alzheimer's dementia. 8. Hx Hypothyroidism. 9. Diabetes. 10. Gastroesophageal reflux disease. 11. Hypertension. Plan Neuro: Monitor neuro status closely and avoid any sedatives. CT brain in the ED negative for acute intracranial process CT scan of the facial bones showed soft tissue swelling over the left orbit. Pulm: Continue with Oxygen maintain sats above 92%. Bronchodilators CV: Monitor HR and BP and maintain MAP>65 mmHg. On Cardizem 60mg Q6 : Monitor renal function, I's and O's and avoid nephrotoxins. Electrolyte replacement as needed. Renal function is improving with Cr: 1.59 from 1.77 last night Continue IV hydration, on D5W@125ml/hr, insert NGT and add Free water 250ml Q6, monitor sodium level. GI: on Pepcid for GI prophylaxis, insert NGT and start tube feeds-Glucerna 1.5 with goal rate 50ml/hr, dietary consult ID: Monitor for signs of infections ( fever, WBC) CXR in ED negative for acute disease and her urinalysis showed no evidence of UTI. Endo: SSI with Accu-Cheks for glycemic TSH: 0.32 GI prophylaxis with Pepcid 10 mg IV q.12 hours and DVT prophylaxis with SCDs Level 2 Rocio Rueda MD Dec 14, 2017 08:52
[2017-12-14] MEDS ORDERED: SODIUM PHOSPHATE INJ 30 MMOL in SODIUM CHLOR 0.9% 250 ML INJ 240 ML IV PRN (09:00)
[2017-12-14] MEDS ORDERED: POTASSIUM CHLOR 40 MEQ PREMIX 100 ML IV PRN ×2 (09:00)
[2017-12-14] MEDS ORDERED: POTASSIUM CHLOR 20 MEQ PREMIX 100 ML IV PRN (09:00)
[2017-12-14] MEDS ORDERED: POTASSIUM CHLORIDE 25 MEQ EFFERVESCENT TAB PO PRN (09:00)
[2017-12-14] MEDS ORDERED: POTASSIUM PHOSPHATE MONOBASIC 500 MG TAB PO/TUBE PRN (09:00)
[2017-12-14] MEDS ORDERED: POTASSIUM PHOSPHATE INJ 30 MMOL in SODIUM CHLOR 0.9% 250 ML INJ 250 ML IV PRN (09:00)
[2017-12-14] MEDS ORDERED: MAGNESIUM SULFATE INJ 2 GM in SODIUM CHLORIDE 0.9% INJ 96 ML IV PRN (09:00)
[2017-12-14] MEDS ORDERED: MAGNESIUM SULFATE INJ 4 GM in SODIUM CHLORIDE 0.9% INJ 92 ML IV PRN (09:00)
[2017-12-14] MEDS: FREE WATER G-TUBE SCH ×3 (09:00→20:32)
[2017-12-14] MEDS ORDERED: MAGNESIUM OXIDE 400 MG TAB PO PRN (09:00)
[2017-12-14] MEDS: POTASSIUM CHLOR 20 MEQ PREMIX 100 ML IV PRN ×4 (09:31→16:45)
[2017-12-14] MEDS: DOCUSATE SODIUM 50 MG/SENNA 8.6 MG TAB PO SCH ×2 (09:31→20:33)
[2017-12-14] MEDS: FAMOTIDINE 20 MG/2 ML VIAL IV PUSH SCH ×2 (09:31→20:32)
[2017-12-14 13:03] LABS: MAGNESIUM 2.5 MG/DL (1.5-2.5); PHOSPHORUS 2.4 MG/DL (2.5-4.9)
[2017-12-15] VITALS (13 sets, daily range): BP systolic 106–144; BP diastolic 54–69; PULSE 66–97; RESP 16–28; TEMP 97.5–98.3; O2SAT 91–100
[2017-12-15] MEDS: FREE WATER G-TUBE SCH ×3 (03:00→21:00)
[2017-12-15] MEDS: DILTIAZEM HCL 60 MG TAB PO SCH ×4 (03:42→21:36)
[2017-12-15] MEDS: DEXTROSE 5% IN WATE 1000ML INJ 1,000 ML IV SCH (03:43)
[2017-12-15] MEDS: CHLORHEXIDINE GLUCONATE 2 % 1 PACK (2 CLOTHS) TOP SCH (03:43)
[2017-12-15 05:42] LABS: BICARBONATE 20.9 MEQ/L (21.0-32.0); CREATININE 1.08 MG/DL (0.50-1.00); MAGNESIUM 2.5 MG/DL (1.5-2.5)
[2017-12-15] MEDS: INSULIN NovoLIN REGULAR SUPPLEMENTAL SCALE SQ SCH ×4 (06:00→17:53)
[2017-12-15 06:10] LABS: AUTOMATED NEUTROPHIL # 16.8 TH/MM3 (1.8-7.7); BASOPHIL % 0.2 % (0.0-2.0); EOSINOPHIL # 0.4 TH/MM3 (0-0.4); EOSINOPHIL % 1.8 % (0.0-4.0); HEMATOCRIT 37.9 % (35.0-46.0); HEMOGLOBIN 12.3 GM/DL (11.6-15.3); LYMPH % 16.6 % (9.0-44.0); LYMPHOCYTE # 3.7 TH/MM3 (1.0-4.8); MEAN CELL VOLUME 100.6 FL (80.0-100.0); MEAN CORPUSCULAR HEMOGLOBIN 32.7 PG (27.0-34.0); MEAN CORPUSCULAR HGB CONC 32.5 % (32.0-36.0); MONO % 5.1 % (0.0-8.0); MONOCYTE # 1.1 TH/MM3 (0-0.9); NEUT % 76.3 % (16.0-70.0); PLATELET COUNT 161 TH/MM3 (150-450); RED BLOOD COUNT 3.76 MIL/MM3 (4.00-5.30); RED CELL DISTRIBUTION WIDTH 15.5 % (11.6-17.2)
[2017-12-15] MEDS ORDERED: VANCOMYCIN INJ 1,000 MG in SODIUM CHLOR 0.9% 250 ML INJ 250 ML IV ONE (07:15)
[2017-12-15] MEDS ORDERED: SODIUM CHLOR 0.9% 1000 ML INJ 1,000 ML IV ONE (07:15)
--- NOTE | 2017-12-15 08:13 | HHI.CCPN ---
Subjective Remarks/Hospital Course The patient is an 87-year-old female with past medical history of Alzheimer's dementia, diabetes mellitus, hypothyroidism, GERD, anxiety/depression and CHF. She presented to [facility] ED from a local halfway after the weekend staff found her to have bruises on her legs and face and questionable fall. When the paramedics arrived, they found her lying off of the mattress on the floor and that she has a bruise to her left supraorbital area. On arrival to the ER, she was tachycardic and her laboratory data showed a severe hypernatremia with a sodium level of 167 and acute renal failure with a BUN of 113, creatinine 2.83. In addition, she has leukocytosis with a WBC of 21.7. The patient underwent CT scan of the brain which showed no evidence of any hemorrhage or mass effect. CT of the facial bones showed soft tissue swelling over the left orbit and frontal bone with no fracture or malalignment. A chest x-ray in the ED showed no acute disease. In the ER, she was given 500 bolus of NS. The patient is minimally verbal and most of the history was obtained from reviewing medical records. 12/14 Patient seems little more awake and alert today. Renal function is improving with Cr:1.59 from 1.7 last night. Afebrile. 12/15 Patient with wax/wanes mental status. Afebrile, WBC increased 22 Objective Vital Signs Date Time Temp Pulse Resp B/P (MAP) Pulse Ox O2 Delivery O2 Flow Rate FiO2 12/15/17 06:00 83 12/15/17 04:00 98.1 16 116/60 (78) 95 12/13/17 08:25 Room Air Intake and Output 12/15/17 12/15/17 12/16/17 08:00 16:00 00:00 Intake Total 1911 ml Output Total 450 ml Balance 1461 ml Result Diagram: 12/15/17 0440 12/15/17 0440 Other Results Laboratory Tests Test 12/14/17 11:33 12/15/17 04:40 12/15/17 07:10 Phosphorus Level 2.4 MG/DL 2.0 MG/DL Magnesium Level 2.5 MG/DL 2.5 MG/DL White Blood Count 22.0 TH/MM3 Red Blood Count 3.76 MIL/MM3 Hemoglobin 12.3 GM/DL Hematocrit 37.9 % Mean Corpuscular Volume 100.6 FL Mean Corpuscular Hemoglobin 32.7 PG Mean Corpuscular Hemoglobin Concent 32.5 % Red Cell Distribution Width 15.5 % Platelet Count 161 TH/MM3 Mean Platelet Volume 11.0 FL Neutrophils (%) (Auto) 76.3 % Lymphocytes (%) (Auto) 16.6 % Monocytes (%) (Auto) 5.1 % Eosinophils (%) (Auto) 1.8 % Basophils (%) (Auto) 0.2 % Neutrophils # (Auto) 16.8 TH/MM3 Lymphocytes # (Auto) 3.7 TH/MM3 Monocytes # (Auto) 1.1 TH/MM3 Eosinophils # (Auto) 0.4 TH/MM3 Basophils # (Auto) 0.0 TH/MM3 CBC Comment DIFF FINAL Differential Comment Blood Urea Nitrogen 46 MG/DL Creatinine 1.08 MG/DL Random Glucose 142 MG/DL Calcium Level 8.0 MG/DL Sodium Level 150 MEQ/L Potassium Level 4.0 MEQ/L Chloride Level 120 MEQ/L Carbon Dioxide Level 20.9 MEQ/L Anion Gap 9 MEQ/L Estimat Glomerular Filtration Rate 48 ML/MIN Blood Gas Puncture Site RT RADIAL Blood Gas Patient Temperature 98.6 Blood Gas HCO3 21 mmol/L Blood Gas Base Excess -2.8 mmol/L Blood Gas Oxygen Saturation 97 % Arterial Blood pH 7.42 Arterial Blood Partial Pressure CO2 33 mmHg Arterial Blood Partial Pressure O2 136 mmHg Arterial Blood Oxygen Content 16.1 Vol % Arterial Blood Carboxyhemoglobin 0.8 % Arterial Blood Methemoglobin 1.3 % Blood Gas Hemoglobin 11.7 G/DL Oxygen Delivery Device Venti Mask Blood Gas Inspired Oxygen 50 % Imaging Last Impressions Maxillofacial CT 12/13/17 0000 Signed Impressions: Service Date/Time: Wednesday, December 13, 2017 01:41 - CONCLUSION: Soft tissue swelling over the left orbit and frontal bone with no fracture or malalignment. Bernardo Fabian MD Head CT 12/13/17 0000 Signed Impressions: Service Date/Time: Wednesday, December 13, 2017 01:41 - CONCLUSION: Stable noncontrast head CT with no evidence of hemorrhage or mass effect. Bernardo Fabian MD Chest X-Ray 12/13/17 0000 Signed Impressions: Service Date/Time: Wednesday, December 13, 2017 03:33 - CONCLUSION: No acute disease. Bernardo Fabian MD Objective Remarks GENERAL: Patient is 87 yo lying in bed in NAD SKIN: Warm and dry. HEAD: Normocephalic. EYES: No scleral icterus. No injection or drainage. NECK: Supple, trachea midline. No JVD or lymphadenopathy. CARDIOVASCULAR: Regular rate and rhythm without murmurs, gallops, or rubs. RESPIRATORY: Breath sounds equal bilaterally. No accessory muscle use. GASTROINTESTINAL: Abdomen soft, non-tender, nondistended. MUSCULOSKELETAL: No cyanosis, or edema. Neuro: waxes/wanes mental status A/P Assessment and Plan 1. Hypernatremia. 2. Acute kidney injury...improving 3. Severe dehydration. 4. Status post fall. 5. Soft tissue swelling over the left orbit. 6. Leukocytosis. 7. History of Alzheimer's dementia. 8. Hx Hypothyroidism. 9. Diabetes. 10. Gastroesophageal reflux disease. 11. Hypertension. Plan Neuro: Monitor neuro status closely and avoid any sedatives. CT brain in the ED negative for acute intracranial process CT scan of the facial bones showed soft tissue swelling over the left orbit. Check EEG, ammonia level. Pulm: Continue with Oxygen maintain sats above 92%. Bronchodilators, aspirtaion precautions CV: Monitor HR and BP and maintain MAP>65 mmHg. On Cardizem 60mg Q6 : Monitor renal function, I's and O's and avoid nephrotoxins. Electrolyte replacement as needed. Renal function is improving with Cr: 1.08 from 1.59, will need Phos replacement today Continue IV hydration, change IVF NS@84ml/hr Free water 250ml Q12 monitor sodium level GI: on Pepcid for GI prophylaxis, On tube feeds via NGT-Glucerna 1.5 with goal rate 50ml/hr, dietary consult ID: Monitor for signs of infections ( fever, WBC) CXR in ED negative for acute disease and her urinalysis showed no evidence of UTI. Place on Cefepime and give Vanco 1gram x1 for increase WBC, patient is afebrile, check BC x 2 sets, repeat CXR today Endo: SSI with Accu-Cheks for glycemic TSH: 0.32 GI prophylaxis with Pepcid 10 mg IV q.12 hours and DVT prophylaxis with SCDs Palliative care eval to asses with goals of care Level 3 Rocio Rueda MD Dec 15, 2017 08:13
[2017-12-15] MEDS: FAMOTIDINE 20 MG/2 ML VIAL IV PUSH SCH (09:00)
[2017-12-15] MEDS: CEFEPIME INJ 1,000 MG in SODIUM CHLORIDE 0.9% INJ 100 ML IV SCH ×2 (09:12→15:45)
[2017-12-15] MEDS: DOCUSATE SODIUM 50 MG/SENNA 8.6 MG TAB PO SCH ×2 (09:29→21:36)
--- NOTE | 2017-12-15 09:51 | RADRPT ---
EXAM DATE/TIME: 12/15/2017 08:34 [facility] COMPARISON: CHEST SINGLE AP, December 13, 2017, 3:33. INDICATIONS : Leukocytosis. Short of breath. MEDICAL HISTORY : None. SURGICAL HISTORY : None. ENCOUNTER: Subsequent ACUITY: 2 days PAIN SCORE: Non-responsive. LOCATION: Bilateral chest FINDINGS: A single view of the chest demonstrates the lungs to be symmetrically aerated without evidence of mas s, infiltrate or effusion. The cardiomediastinal contours are unremarkable. Osseous structures are intact. There has been interval placement of a nasogastric tube with the tip projected over the proxi mal stomach. The distal side-port lies in the distal esophagus. Mild atherosclerotic changes are agai n noted in the aorta. CONCLUSION: 1. Interval placement nasogastric tube with the tip in the proximal stomach. The distal side-port lie s in the distal esophagus and should be advanced at least 6 cm. 2. No acute cardiopulmonary disease. Bernardo Fabian MD on December 15, 2017 at 9:47 Board Certified Radiologist. This report was verified electronically.
[2017-12-15] MEDS: SODIUM CHLOR 0.9% 1000 ML INJ 1,000 ML IV SCH ×2 (10:09→19:10)
--- NOTE | 2017-12-15 10:22 | PD.CONS ---
Consult Service Palliative Care Consult Requested By Dr. Dhillon . Primary Care Physician Amadou Corea MD Reason for Consultation a. To assist with evaluation and management of symptoms including:pain, shortness of breath, altered mental status b. To assist medical decision maker(s) with: better understanding of current medical conditions; weighing benefits/burdens of medical treatment options; making medical treatment decisions. (Ellen Cruz) HPI History of Present Illness Mrs. Ruvalcaba is a 87-year-old female with a past medical history of Alzheimer's dementia, diabetes mellitus, congestive heart failure, gout, hypothyroidism, anxiety/depression,recurrent UTIs and GERD. Patient was brought to [facility] on for further evaluation after a questionable fall and was noted to have bruises on her legs and face at the senior care where she resides. ER course: * Vital signs: Temperature 97.5, pulse 107, respirations 16, BP 162/92, O2 saturation 97% on room air * Laboratory workup revealed WBC 21.7, hemoglobin 14.7, hematocrit 45.3, platelet count 295, sodium 168, potassium 2.9, BUN/creatinine 87/1.98, calcium 8.1 * Head CT revealed no evidence of hemorrhage or mass-effect * Maxillofacial CT revealed soft tissue swelling over the left orbit and frontal bone with no fracture or malalignment * Chest x-ray revealed no acute disease * Urinalysis negative, no culture indicated * 500 mL's normal saline bolus administered in the ED * Patient admitted for further evaluation on ICU under the care of critical care management physician Speech therapy consulted on 12/14 to evaluate patient, recommended NPO. Clinical course complicated with altered mentation, dysphagia, shortness of breath and leukocytosis. Palliative care consulted to assist with symptom management and establishing goals of care. Laboratory workup today revealing persistent leukocytosis WBC 22.0, sodium 150, BUN/creatinine 46/1.08. Blood cultures ordered. ABG revealed pH 7.42, PCO2 33, HCO3 21, PO2 136 base excess -2.8 on 50% Ventimask. EEG ordered. Neurologist consulted for evaluation of altered mental status and abnormal EEG. Patient seen and examined in ICU. Patient is lethargic, not verbalizing, moaning and restless. Patient is not following commands but spontaneously moving all 4 extremities. Patient is currently on 50% venturi mask with O2 saturation in the low to high 90s. Telephone conversation with patient's grandson Erick Ruvalcaba who lives locally. Obtained psychosocial history and past medical history. Patient`s grandson stated that patient has advance directives and her daughter Leilani Ruvalcaba is POA and Health care surrogate and Erick Ruvalcaba is the alternate POA.Updated him on patient`s current medical status. Notified patient`s grandson regarding increased lethargy, dysphagia, requiring more oxygen Via Venturi mask and abnormal EEG. Patient`s grandson mentioned that they have discussed as family that patient is being progressively declining and they have decided to have patient as DNR/DNI. Introduced hospice philosophy and benefits and patient's grandson would like to discuss further with his family. Telephone conversation with patient's daughter who is also healthcare surrogate Leilani Ruvalcaba . Updated here on patient's current medical condition and treatments rendered thus far. Addressed code status, discussed risks, benefits and limitations of CPR and ongoing current comorbidities. Patient's daughter elected do not resuscitate and do not intubate. Introduced hospice philosophy and benefits, given that patient his progressive Alzheimer's dementia disease. Patient's daughter requested hospice informative consult. Patient's daughter also stated that if there are any papers that need to be signed immediately his nephew Munir Ruvalcaba who is also durable power of banking attorney can sign since he is easily available and lives locally. Patient's daughter indicated that she would want treatment to continue and if patient does not show improvement then she would transition patient to hospice services. . Function/Cognitive Trajectory Patient is a resident at [facility]. Patient's last hospital admission was February 11 to February 13, 2017. She was treated for hyponatremia and urinary tract infection. Her last ER visit was February 21, 2017 after a fall and she sustained a closed fracture of nasal bone. Patient telephone call with Barbie Pettit [phone] [facility] patient prior to this admission was late and very confused, she required people tell transfers from bed to wheelchair and she was able to propel herself in th wheelchair. Patient was incontinent of bowel and bladder and he needs when mostly anticipated. . (Ellen Cruz) Review of Systems ROS Limitations: Clinical Condition, Poor Historian Constitutional: COMPLAINS OF: Pain Respiratory: COMPLAINS OF: Shortness of breath Hematologic/Lymphatics: COMPLAINS OF: Bruising Psychiatric: COMPLAINS OF: Confusion, Depression Other ROS: Review of system obtained from EMR and clinical observation . (Ellen Cruz) Past Family Social History Coded Allergies: No Known Allergies (Unverified Allergy, Unknown, 12/13/17) Past Medical History Alzheimer's disease Congestive heart failure Hypothyroidism Diabetes mellitus Anxiety/depression Gastroesophageal reflux disease Gout Recurrent UTI History of falls Closed fracture of nasal bone, 2017 S/P fall . Past Surgical History Previous joint replacement . Reported Medications Zantac 150 Maximum Strength (Ranitidine HCl) 150 Mg Tab 150 Mg PO DAILY Verapamil HCl ER (Verapamil HCl) 240 Mg Cap 240 Mg PO DAILY Tylenol (Acetaminophen) 325 Mg Tab 650 Mg PO Q4H PRN Tussin Dm 100-10 mg/5Ml (Dextromethorphan-Guaifenesin) 1 Liq Liq 5 Ml PO Q4HR PRN Seroquel (Quetiapine Fumarate) 25 Mg Tab 25 Mg PO BID Remeron (Mirtazapine) 15 Mg Tab 15 Mg PO HS Potassium Chloride ER (Potassium Chloride) 10 Meq Cap 10 Meq PO BID Nuedexta 20-10 mg (Dextromethorphan HBr-Quinidine) 1 Cap Cap 1 Cap PO BID Levothyroxine (Levothyroxine Sodium) 100 Mcg Tab 100 Mcg PO DAILY Lasix (Furosemide) 20 Mg Tab 20 Mg PO DAILY Ibuprofen 800 Mg Tab 800 Mg PO BID Glimepiride 1 Mg Tab 1 Mg PO DAILY Celexa (Citalopram Hydrobromide) 10 Mg Tab 10 Mg PO DAILY Ativan (Lorazepam) 1 Mg Tab 1 Mg PO Q6H PRN Allopurinol 300 Mg Tab 300 Mg PO DAILY . Current Medications Medications (Trade) Dose Ordered Sig/Jeri Route Start Time Stop Time Status Last Admin (Pepcid Inj) 10 mg Q12HR IV PUSH 12/13/17 11:15 12/14/17 20:32 (Duoneb Neb) 1 ampule Q4HR NEB PRN INH 12/13/17 11:15 Miscellaneous Information 1 Q361D XX 12/13/17 11:15 12/13/17 11:15 (Chlorhexidine 2% Cloth) 3 pack Taper DAILY@04 TOP 12/14/17 04:00 3/21/19 03:59 12/15/17 03:43 (Chlorhexidine 2% Cloth) 3 pack UNSCH PRN TOP 12/13/17 11:15 (Lily-Colace) 1 tab BID PO 12/13/17 21:00 12/15/17 09:29 (Milk Of Magnesia Liq) 30 ml Q12H PRN PO 12/13/17 11:15 (Senokot) 17.2 mg Q12H PRN PO 12/13/17 11:15 (Dulcolax Supp) 10 mg DAILY PRN RECTAL 12/13/17 11:15 (Lactulose Liq) 30 ml DAILY PRN PO 12/13/17 11:15 (D50w (Vial) Inj) 50 ml UNSCH PRN IV PUSH 12/13/17 11:15 (Glucagon Inj) 1 mg UNSCH PRN OTHER 12/13/17 11:15 (NovoLIN R SUPPLEMENTAL SCALE) 1 Q6H SQ 12/13/17 12:00 (Cardizem) 60 mg Q6H PO 12/13/17 16:00 12/14/17 15:31 (Lopressor Inj) 2.5 mg Q6H PRN IV PUSH 12/13/17 16:45 12/13/17 16:54 Potassium Chloride 100 ml @ 50 mls/hr Q2H PRN IV 12/14/17 09:00 Potassium Chloride 100 ml @ 50 mls/hr Q2H PRN IV 12/14/17 09:00 12/14/17 16:45 (K-Lyte Cl Eff) 50 meq UNSCH PRN PO 12/14/17 09:00 Potassium Chloride 100 ml @ 25 mls/hr UNSCH PRN IV 12/14/17 09:00 Potassium Chloride 100 ml @ 50 mls/hr Q2H PRN IV 12/14/17 09:00 Magnesium Sulfate 4 gm/Sodium Chloride 100 ml @ 50 mls/hr UNSCH PRN IV 12/14/17 09:00 (Mag-Ox) 800 mg UNSCH PRN PO 12/14/17 09:00 Magnesium Sulfate 2 gm/Sodium Chloride 100 ml @ 50 mls/hr UNSCH PRN IV 12/14/17 09:00 (K-Phos) 2,000 mg Q4H PRN PO 12/14/17 09:00 Sodium Phosphate 30 mmol/Sodium Chloride 250 ml @ 42 mls/hr UNSCH PRN IV 12/14/17 09:00 12/14/17 15:43 (K-Phos) 2,000 mg UNSCH PRN PO/TUBE 12/14/17 09:00 Potassium Phosphate 30 mmol/ Sodium Chloride 260 ml @ 42 mls/hr UNSCH PRN IV 12/14/17 09:00 Sodium Chloride 1,000 ml @ 84 mls/hr [id number] IV 12/15/17 07:15 Cefepime HCl 1000 mg/Sodium Chloride 100 ml @ 200 mls/hr Q8H IV 12/15/17 08:00 12/15/17 09:12 (Free Water) 250 ml Q12H G-TUBE 12/15/17 09:00 Family History Both parents Son- from complications of heart disease Daughter living and he has hypertension . Substance Use Tobacco: None reported Alcohol: None reported Prescription med abuse: None reported Illicits: None reported . Psychosocial History Patient was born in [place], [place]. Patient was mostly a [id number] mother. She is a and she had 3 adult children, one son and 2 living daughters. . (Ellen Cruz) Living Will: Copy in medical record Health Care Surrogate: Copy in medical record Durable Power of Freelance Digital Project Manager: Copy in medical record Date completed: Living will completed on June 24, 2006 DURABLE POWER OF CHIEF ENGINEER WATERWORKS signed June 24, 2006. . Health Care Surrogate(s): Healthcare surrogate -daughter- Jordon Stone . Documented care wishes: Standard verbiage . Family/friends goals: DNR/DNI- aggressive short of no code . Ethical and Legal Issues None identified at this time . (Ellen Cruz) Physical Exam Vital Signs Date Time Temp Pulse Resp B/P (MAP) Pulse Ox O2 Delivery O2 Flow Rate FiO2 12/15/17 06:00 83 12/15/17 04:00 98.1 88 16 116/60 (78) 95 12/15/17 04:00 88 12/15/17 02:00 81 12/15/17 00:00 84 12/15/17 00:00 98.3 84 17 109/69 (82) 100 12/14/17 22:00 84 12/14/17 20:00 88 12/14/17 20:00 98.0 88 18 123/76 (92) 100 12/14/17 16:00 98.9 159 16 120/58 (78) 83 12/14/17 14:00 72 12/14/17 12:00 98.5 102 20 126/61 (82) 88 12/14/17 12:00 102 12/14/17 10:00 129 Exam CONSTITUTIONAL/GENERAL: This is a frail elderly patient in mild respiratory distress. Patient is restless TUBES/LINES/DRAINS: Sanders catheter, PIV's, NG tube, Ventimask SKIN: No jaundice, rashes, or lesions. Ecchymoses on upper extremities. Bruise to left forehead and left eyelid. Bruises to legs skin temperature appropriate. Not diaphoretic. HEAD: Atraumatic. Normocephalic. EYES: Pupils equal and round and reactive. Extraocular motions intact. No scleral icterus. No injection or drainage. Fundi not examined. ENT: Unable to assess hearing nose without bleeding or purulent drainage. Mouth dry NECK: Trachea midline. Supple, nontender. CARDIOVASCULAR: Regular rate and rhythm without murmurs, gallops, or rubs. No JVD. Peripheral pulses symmetric. RESPIRATORY/CHEST: Symmetric, unlabored respirations. Lungs rhonchi to auscultation GASTROINTESTINAL: Abdomen soft, non-tender, nondistended. No guarding. Bowel sounds present. GENITOURINARY: Without palpable bladder distension. Sanders catheter in place. MUSCULOSKELETAL: Extremities without clubbing, cyanosis, or edema. No joint tenderness or effusion noted. No calf tenderness. No mottling or clubbing. NEUROLOGICAL: Lethargic, moaning. Motor and sensory grossly within normal limits. Not following commands but moving all extremities PSYCHIATRIC: Unable to assess due to clinical condition . (Ellen Cruz) Diagnostic Tests Laboratory Laboratory Tests Test 12/13/17 03:05 12/13/17 04:45 12/13/17 12:14 12/13/17 14:15 White Blood Count 21.7 TH/MM3 (4.0-11.0) 18.0 TH/MM3 (4.0-11.0) Red Blood Count 4.51 MIL/MM3 (4.00-5.30) 3.84 MIL/MM3 (4.00-5.30) Hemoglobin 14.7 GM/DL (11.6-15.3) 12.8 GM/DL (11.6-15.3) Hematocrit 45.3 % (35.0-46.0) 39.1 % (35.0-46.0) Mean Corpuscular Volume 100.5 FL (80.0-100.0) 101.9 FL (80.0-100.0) Mean Corpuscular Hemoglobin 32.5 PG (27.0-34.0) 33.3 PG (27.0-34.0) Mean Corpuscular Hemoglobin Concent 32.3 % (32.0-36.0) 32.7 % (32.0-36.0) Red Cell Distribution Width 15.5 % (11.6-17.2) 15.7 % (11.6-17.2) Platelet Count 294 TH/MM3 (150-450) 273 TH/MM3 (150-450) Mean Platelet Volume 10.9 FL (7.0-11.0) 10.7 FL (7.0-11.0) Neutrophils (%) (Auto) 72.7 % (16.0-70.0) 67.8 % (16.0-70.0) Lymphocytes (%) (Auto) 18.9 % (9.0-44.0) 24.4 % (9.0-44.0) Monocytes (%) (Auto) 7.2 % (0.0-8.0) 6.9 % (0.0-8.0) Eosinophils (%) (Auto) 0.5 % (0.0-4.0) 0.4 % (0.0-4.0) Basophils (%) (Auto) 0.7 % (0.0-2.0) 0.5 % (0.0-2.0) Neutrophils # (Auto) 15.8 TH/MM3 (1.8-7.7) 12.2 TH/MM3 (1.8-7.7) Lymphocytes # (Auto) 4.1 TH/MM3 (1.0-4.8) 4.4 TH/MM3 (1.0-4.8) Monocytes # (Auto) 1.6 TH/MM3 (0-0.9) 1.2 TH/MM3 (0-0.9) Eosinophils # (Auto) 0.1 TH/MM3 (0-0.4) 0.1 TH/MM3 (0-0.4) Basophils # (Auto) 0.1 TH/MM3 (0-0.2) 0.1 TH/MM3 (0-0.2) CBC Comment DIFF FINAL AUTO DIFF Differential Comment AUTO DIFF CONFIRMED Blood Urea Nitrogen 113 MG/DL (7-18) 87 MG/DL (7-18) Creatinine 2.83 MG/DL (0.50-1.00) 1.98 MG/DL (0.50-1.00) Random Glucose 152 MG/DL (74-106) 146 MG/DL (74-106) Total Protein 7.5 GM/DL (6.4-8.2) Albumin 3.1 GM/DL (3.4-5.0) Calcium Level 8.9 MG/DL (8.5-10.1) 8.1 MG/DL (8.5-10.1) Alkaline Phosphatase 153 U/L (45-117) Aspartate Amino Transf (AST/SGOT) 25 U/L (15-37) Alanine Aminotransferase (ALT/SGPT) 35 U/L (10-53) Total Bilirubin 0.5 MG/DL (0.2-1.0) Sodium Level 167 MEQ/L (136-145) 168 MEQ/L (136-145) Potassium Level 3.5 MEQ/L (3.5-5.1) 2.9 MEQ/L (3.5-5.1) Chloride Level 127 MEQ/L (98-107) 134 MEQ/L (98-107) Carbon Dioxide Level 29.0 MEQ/L (21.0-32.0) 26.0 MEQ/L (21.0-32.0) Anion Gap 11 MEQ/L (5-15) 8 MEQ/L (5-15) Estimat Glomerular Filtration Rate 16 ML/MIN (>89) 24 ML/MIN (>89) Total Creatine Kinase 163 U/L (26-192) Lipase 99 U/L (73-393) Thyroid Stimulating Hormone 3rd Gen 0.322 uIU/ML (0.358-3.740) Urine Color YELLOW (YELLW/STRAW) Urine Turbidity CLEAR (CLEAR) Urine pH 5.0 (5.0-8.5) Urine Specific Dennard 1.016 (1.002-1.035) Urine Protein NEG mg/dL (NEG-TRACE) Urine Glucose (UA) NEG mg/dL (NEG) Urine Ketones NEG mg/dL (NEG) Urine Occult Blood NEG (NEG) Urine Nitrite NEG (NEG) Urine Bilirubin NEG (NEG) Urine Urobilinogen LESS THAN 2.0 MG/DL (LESS Urine Leukocyte Esterase NEG (NEG) Urine WBC 1 /hpf (0-5) Urine Squamous Epithelial Cells 1 /hpf (0-5) Microscopic Urinalysis Comment CATH-CULT NOT IND Nasal Screen MRSA (PCR) MRSA NOT DETECTED (NOT Platelet Estimate NORMAL (NORMAL) Platelet Morphology Comment NORMAL (NORMAL) Ovalocytes 1+ (NORMAL) Test 12/13/17 22:16 12/14/17 03:29 12/14/17 11:33 12/15/17 04:40 Blood Urea Nitrogen 82 MG/DL (7-18) 75 MG/DL (7-18) 46 MG/DL (7-18) Creatinine 1.77 MG/DL (0.50-1.00) 1.59 MG/DL (0.50-1.00) 1.08 MG/DL (0.50-1.00) Random Glucose 139 MG/DL (74-106) 107 MG/DL (74-106) 142 MG/DL (74-106) Calcium Level 8.0 MG/DL (8.5-10.1) 8.1 MG/DL (8.5-10.1) 8.0 MG/DL (8.5-10.1) Sodium Level 167 MEQ/L (136-145) 164 MEQ/L (136-145) 150 MEQ/L (136-145) Potassium Level 3.6 MEQ/L (3.5-5.1) 3.1 MEQ/L (3.5-5.1) 4.0 MEQ/L (3.5-5.1) Chloride Level 133 MEQ/L (98-107) 128 MEQ/L (98-107) 120 MEQ/L (98-107) Carbon Dioxide Level 28.2 MEQ/L (21.0-32.0) 25.9 MEQ/L (21.0-32.0) 20.9 MEQ/L (21.0-32.0) Anion Gap 6 MEQ/L (5-15) 10 MEQ/L (5-15) 9 MEQ/L (5-15) Estimat Glomerular Filtration Rate 27 ML/MIN (>89) 31 ML/MIN (>89) 48 ML/MIN (>89) White Blood Count 19.0 TH/MM3 (4.0-11.0) 22.0 TH/MM3 (4.0-11.0) Red Blood Count 3.78 MIL/MM3 (4.00-5.30) 3.76 MIL/MM3 (4.00-5.30) Hemoglobin 12.2 GM/DL (11.6-15.3) 12.3 GM/DL (11.6-15.3) Hematocrit 38.3 % (35.0-46.0) 37.9 % (35.0-46.0) Mean Corpuscular Volume 101.2 FL (80.0-100.0) 100.6 FL (80.0-100.0) Mean Corpuscular Hemoglobin 32.3 PG (27.0-34.0) 32.7 PG (27.0-34.0) Mean Corpuscular Hemoglobin Concent 31.9 % (32.0-36.0) 32.5 % (32.0-36.0) Red Cell Distribution Width 15.7 % (11.6-17.2) 15.5 % (11.6-17.2) Platelet Count 222 TH/MM3 (150-450) 161 TH/MM3 (150-450) Mean Platelet Volume 10.9 FL (7.0-11.0) 11.0 FL (7.0-11.0) Neutrophils (%) (Auto) 65.5 % (16.0-70.0) 76.3 % (16.0-70.0) Lymphocytes (%) (Auto) 26.0 % (9.0-44.0) 16.6 % (9.0-44.0) Monocytes (%) (Auto) 6.0 % (0.0-8.0) 5.1 % (0.0-8.0) Eosinophils (%) (Auto) 2.3 % (0.0-4.0) 1.8 % (0.0-4.0) Basophils (%) (Auto) 0.2 % (0.0-2.0) 0.2 % (0.0-2.0) Neutrophils # (Auto) 12.4 TH/MM3 (1.8-7.7) 16.8 TH/MM3 (1.8-7.7) Lymphocytes # (Auto) 4.9 TH/MM3 (1.0-4.8) 3.7 TH/MM3 (1.0-4.8) Monocytes # (Auto) 1.1 TH/MM3 (0-0.9) 1.1 TH/MM3 (0-0.9) Eosinophils # (Auto) 0.4 TH/MM3 (0-0.4) 0.4 TH/MM3 (0-0.4) Basophils # (Auto) 0.0 TH/MM3 (0-0.2) 0.0 TH/MM3 (0-0.2) CBC Comment DIFF FINAL DIFF FINAL Differential Comment Total Protein 5.9 GM/DL (6.4-8.2) Albumin 2.4 GM/DL (3.4-5.0) Alkaline Phosphatase 119 U/L (45-117) Aspartate Amino Transf (AST/SGOT) 32 U/L (15-37) Alanine Aminotransferase (ALT/SGPT) 28 U/L (10-53) Total Bilirubin 0.5 MG/DL (0.2-1.0) Phosphorus Level 2.4 MG/DL (2.5-4.9) 2.0 MG/DL (2.5-4.9) Magnesium Level 2.5 MG/DL (1.5-2.5) 2.5 MG/DL (1.5-2.5) Test 12/15/17 07:10 Blood Gas Puncture Site RT RADIAL Blood Gas Patient Temperature 98.6 Blood Gas HCO3 21 mmol/L (22-26) Blood Gas Base Excess -2.8 mmol/L (-2-2) Blood Gas Oxygen Saturation 97 % (90-100) Arterial Blood pH 7.42 (7.380-7.420) Arterial Blood Partial Pressure CO2 33 mmHg (38-42) Arterial Blood Partial Pressure O2 136 mmHg (61-120) Arterial Blood Oxygen Content 16.1 Vol % (12.0-20.0) Arterial Blood Carboxyhemoglobin 0.8 % (0-4) Arterial Blood Methemoglobin 1.3 % (0-2) Blood Gas Hemoglobin 11.7 G/DL (12.0-16.0) Oxygen Delivery Device Venti Mask Blood Gas Inspired Oxygen 50 % (Ellen Cruz) Result Diagram: 12/15/1743912/15/17439 Microbiology Microbiology Date/Time Source Procedure Growth Status 12/15/17 08:10 Blood Peripheral Aerobic Blood Culture Pending Received 12/15/17 08:10 Blood Peripheral Anaerobic Blood Culture Pending Received 12/15/17 08:00 Blood Peripheral Aerobic Blood Culture Pending Received 12/15/17 08:00 Blood Peripheral Anaerobic Blood Culture Pending Received Imaging Last Impressions Maxillofacial CT 12/13/17 0000 Signed Impressions: Service Date/Time: Wednesday, December 13, 2017 01:41 - CONCLUSION: Soft tissue swelling over the left orbit and frontal bone with no fracture or malalignment. Bernardo Fabian MD Head CT 12/13/17 0000 Signed Impressions: Service Date/Time: Wednesday, December 13, 2017 01:41 - CONCLUSION: Stable noncontrast head CT with no evidence of hemorrhage or mass effect. Bernardo Fabian MD Chest X-Ray 12/13/17 0000 Signed Impressions: Service Date/Time: Wednesday, December 13, 2017 03:33 - CONCLUSION: No acute disease. Bernardo Fabian MD (Ellen Cruz) Patient/Family Conference Family Conference Location: Telephone Issues Discussed: * Palliative care role, purpose, approach * Additional medical, psychosocial, and spiritual history * Patients general health, functional status, and cognitive changes in the months leading up to the current hospitalization * Patient/family understanding of the current medical problems * Patient/family understanding of prognosis * Patients goals of care as best understood from advance directives and/or conversations and/or values * Current medical treatment options and benefits/burdens of those options * Likely scenarios comparing ongoing aggressive care with a transition to comfort measures only * Questions answered to the best of my ability * Introduced hospice philosophy and benefits * Palliative care contact information provided (Ellen Cruz) Assessment and Plan Disease Oriented Problem List: (1) Severe dehydration (2) Acute kidney injury (3) Leukocytosis (4) Diabetes (5) Status post fall (6) Alzheimer's dementia (7) Hypertension (8) Forehead contusion Symptom Scale: (1) Pain Comment: History of falls. Questionable fall this admission with soft tissue swelling over the left orbit and frontal bone with no fracture and multiple bruises to the legs . (2) Dysphagia Comment: Currently n.p.o. failed swallow evaluation . (3) Shortness of breath Comment: Currently on Venturi mask. . (4) Altered mental status Comment: History of Alzheimer's dementia. Abnormal EEG 12/15. . Pertinent Non-Medical Issues Psychosocial:Patient was born in [place], [place]. Patient was mostly a [id number] mother. She is a and she had 3 adult children, one son and 2 living daughters. Spiritual: Patient is Gnosticism Legal: Patient has completed DURABLE POWER OF CHIEF ENGINEER WATERWORKS, living will and healthcare surrogate Ethical issues impacting care: None identified at this time . Important Contacts Daughter-Shira Ruvalcaba- / Grandson-Erick Ruvalcaba- . Prognosis Mrs. Ruvalcaba is a 87-year-old female with a past medical history of Alzheimer's dementia, diabetes mellitus, congestive heart failure, gout, hypothyroidism, anxiety/depression,recurrent UTIs and GERD. Patient was brought to [facility] on for further evaluation after a questionable fall and was noted to have bruises on her legs and face at the senior care where she resides. Clinical course complicated with altered mentation, dysphagia, shortness of breath and leukocytosis. Given ongoing multiple comorbidities, patient remains at risk for further complications, deterioration and decline. . Code Status: No Code Plan PLAN: Legal decision maker: Patient was deemed incapacitated on 06/01/2015. Per patient`s Durable Power of Freelance Digital Project Manager signed 06/24/2018, patient appointed her daughter Leilani Ruvalcaba or her grandson Erick Ruvalcaba as her durable power of attorneys. Goals: Aggressive short of no code CODE STATUS: No code DNR/DNI Telephone conversation with patient's daughter who is also healthcare surrogate Leilani Ruvalcaba . Updated here on patient's current medical condition and treatments rendered thus far. Addressed code status, discussed risks, benefits and limitations of CPR and ongoing current comorbidities. Patient's daughter elected do not resuscitate and do not intubate. Introduced hospice philosophy and benefits, given that patient his progressive Alzheimer's dementia disease. Patient's daughter requested hospice informative consult. Patient's daughter also stated that if there are any papers that need to be signed immediately his nephew Munir Ruvalcaba who is also durable power of banking attorney can sign since he is easily available and lives locally. Patient's daughter indicated that she would want treatment to continue and if patient does not show improvement then she would transition patient to hospice services. SYMPTOMS: * Pain: Patient has history of falls. Recently admitted after a questionable fall, with bruises to left eye and legs. Maxillofacial CT revealed soft tissue swelling to the left orbital and frontal bone with no fracture. No pain medication ordered at this time due to lethargy. Patient may benefit from low- dose tramadol * Dysphagia: Patient is currently n.p.o. failed swallow evaluation. Patient is an NG tube currently receiving Glucerna at 40 mL's an hour. Speech therapy following.no recommendations at this time. * Altered mental status: History of Alzheimer's dementia. Abnormal EEG 12/15. * Shortness of breath: Patient is normally on room air. O2 saturation dropped to low 80s on 12/14. Patient is currently on 50% Ventimask. Palliative care will continue to follow the patient during hospital course as condition evolves, to assist patient/decision-maker with understanding of their medical conditions, weighing benefits/burdens of treatment options, for clarification of goals of treatment. Additionally will assist with any symptoms of palliative concern. . (Ellen Cruz) Thank you for the opportunity to participate in the care of Ms. Ruvalcaba. (Ellen Cruz) Attestation To help prompt me to consider important information that might be impacting today's encounter and assessment, information from prior notes written by myself or my colleagues may have been "brought forward" into today's note. My signature on this note, however, is an attestation that I personally performed the exam, history, and/or decision-making noted today, and, unless otherwise indicated, the interactions with patient, family, and staff as well as the review of records all occurred today. I also attest that the listed assessment and stated plan reflect my best clinical judgment today based on the combination of historical information, prior notes, and today's exam/ interactions. When time spent is documented, it refers only to time spent today by the signer, or if indicated, combined time spent today by collaborating physician/nurse practitioner. (Ellen Cruz) Collaborating MD Comments Chart reviewed. Case discussed with palliative care INTELLIGENT SYSTEMS ENGINEER. Above INTELLIGENT SYSTEMS ENGINEER note reviewed and I concur. . (Al Marin MD) Ellen Cruz Dec 15, 2017 10:22 Al Marin MD Dec 28, 2017 14:39
[2017-12-15] MEDS: levETIRAcetam INJ 500 MG in SODIUM CHLORIDE 0.9% INJ 100 ML IV SCH ×2 (12:01→21:35)
--- NOTE | 2017-12-15 15:30 | MG ---
cc: Hima Byrne MD, PhD EEG#: [id number] TECHNIQUE: 17-channel EEG. DESCRIPTION: The background is generally slow in the theta frequency at 6 Hz. Amplitude is 20-30 microvolts. Occasional sharp activity is seen, mainly of the left hemisphere, with some degree of phase reversal. There was muscle artifact as well. Photic results in a modest driving response. INTERPRETATION: Abnormal study consistent with a moderate encephalopathy. There was occasional sharp activity, left hemisphere, suggesting the possibility of an ictal focus. Hima Byrne MD, PhD TEO/PRISCILLA , 03:16 PM , 03:29 PM
--- NOTE | 2017-12-15 15:53 | MB ---
cc: Hima Byrne MD, PhD DATE: 12/15/2017 REASON FOR CONSULTATION: Fall, abnormal EEG. HISTORY OF PRESENT ILLNESS: Ms. Ruvalcaba is an 87-year-old female with Alzheimer dementia, who fell and was noted to have bruises on her face and leg. She was brought to the ER. She has been confused. She was found to be dehydrated with hypernatremia. No witnessed seizure apparently was identified. PAST MEDICAL HISTORY: History of diabetes, Alzheimer disease, hypothyroidism, GERD, anxiety, depression, congestive heart failure. CURRENT MEDICATIONS: Keppra 500 mg IV q. 12 hours, cefepime, sodium chloride, potassium chloride, magnesium, diltiazem p.r.n. PHYSICAL EXAMINATION: VITAL SIGNS: Blood pressure is 144/60, pulse 91, respirations 16, temperature 97. NEUROLOGIC: Higher cortical function, she is lethargic, but arousable, very confused, does not follow commands. Cranial nerves are grossly intact. On motor exam, she moves both upper and lower extremities symmetrically. Reflexes symmetric. DIAGNOSTIC DATA: CT of the brain unremarkable. Maxillofacial CT, soft tissue swelling, no fracture. EEG is reviewed showing occasional left hemisphere sharp activity with some degree of phase reversal suggesting possible seizure. LABORATORY DATA: White count 22,000, hemoglobin 12.3, hematocrit 37%, platelet count 161,000. Sodium is 150, potassium is 4, chloride 120, CO2 is 20.9. The BUN is 46, creatinine 1.08, glucose 142, AST 32, ALT is 28. IMPRESSION: Fall, possibly related to seizure. The electroencephalogram does indicate evidence of possible seizure focus. Therefore, I agree with continuing the patient on the current dose of Keppra. I would like to obtain an MRI of the brain as well for further evaluation. Hima Byrne MD, PhD TEO/SB , 03:19 PM , 03:53 PM
[2017-12-15 16:42] LABS: BICARBONATE 19.9 MEQ/L (21.0-32.0); CALCIUM 7.5 MG/DL (8.5-10.1); CREATININE 0.93 MG/DL (0.50-1.00)
[2017-12-15] MEDS: FAMOTIDINE 20 MG TAB PO SCH (21:36)
[2017-12-16] VITALS (13 sets, daily range): BP systolic 78–120; BP diastolic 51–86; PULSE 68–92; RESP 22–29; TEMP 97.3–98.8; O2SAT 99–100
[2017-12-16] MEDS: CEFEPIME INJ 1,000 MG in SODIUM CHLORIDE 0.9% INJ 100 ML IV SCH ×3 (01:00→15:39)
[2017-12-16 03:58] LABS: AUTOMATED NEUTROPHIL # 13.6 TH/MM3 (1.8-7.7); BASOPHIL # 0.1 TH/MM3 (0-0.2); BASOPHIL % 0.4 % (0.0-2.0); EOSINOPHIL # 0.7 TH/MM3 (0-0.4); HEMATOCRIT 34.2 % (35.0-46.0); HEMOGLOBIN 11.2 GM/DL (11.6-15.3); LYMPH % 16.2 % (9.0-44.0); MEAN CELL VOLUME 99.8 FL (80.0-100.0); MEAN CORPUSCULAR HEMOGLOBIN 32.7 PG (27.0-34.0); MEAN CORPUSCULAR HGB CONC 32.8 % (32.0-36.0); MEAN PLATELET VOLUME 11.1 FL (7.0-11.0); MONO % 4.8 % (0.0-8.0); MONOCYTE # 0.9 TH/MM3 (0-0.9); NEUT % 74.6 % (16.0-70.0); PLATELET COUNT 126 TH/MM3 (150-450); RED BLOOD COUNT 3.42 MIL/MM3 (4.00-5.30); RED CELL DISTRIBUTION WIDTH 15.7 % (11.6-17.2); WHITE BLOOD COUNT 18.3 TH/MM3 (4.0-11.0)
[2017-12-16] MEDS: DILTIAZEM HCL 60 MG TAB PO SCH ×4 (04:00→22:00)
[2017-12-16] MEDS: CHLORHEXIDINE GLUCONATE 2 % 1 PACK (2 CLOTHS) TOP SCH (04:00)
[2017-12-16 04:27] LABS: BICARBONATE 20.5 MEQ/L (21.0-32.0); CALCIUM 7.4 MG/DL (8.5-10.1); CREATININE 0.87 MG/DL (0.50-1.00); MAGNESIUM 2.4 MG/DL (1.5-2.5); PHOSPHORUS 1.7 MG/DL (2.5-4.9)
[2017-12-16 04:48] LABS: CALCIUM-PROTEIN CORRECTED 8.3 MG/DL (8.5-10.1); TOTAL PROTEIN 5.4 GM/DL (6.4-8.2)
[2017-12-16] MEDS: INSULIN NovoLIN REGULAR SUPPLEMENTAL SCALE SQ SCH ×4 (06:00→18:00)
--- NOTE | 2017-12-16 07:56 | HHI.CCPN ---
Subjective Remarks/Hospital Course The patient is an 87-year-old female with past medical history of Alzheimer's dementia, diabetes mellitus, hypothyroidism, GERD, anxiety/depression and CHF. She presented to [facility] ED from a local half-way after the weekend staff found her to have bruises on her legs and face and questionable fall. When the paramedics arrived, they found her lying off of the mattress on the floor and that she has a bruise to her left supraorbital area. On arrival to the ER, she was tachycardic and her laboratory data showed a severe hypernatremia with a sodium level of 167 and acute renal failure with a BUN of 113, creatinine 2.83. In addition, she has leukocytosis with a WBC of 21.7. The patient underwent CT scan of the brain which showed no evidence of any hemorrhage or mass effect. CT of the facial bones showed soft tissue swelling over the left orbit and frontal bone with no fracture or malalignment. A chest x-ray in the ED showed no acute disease. In the ER, she was given 500 bolus of NS. The patient is minimally verbal and most of the history was obtained from reviewing medical records. 12/14 Patient seems little more awake and alert today. Renal function is improving with Cr:1.59 from 1.7 last night. Afebrile. 12/15 Patient with wax/wanes mental status. Afebrile, WBC increased 22 12/16 Patient is on 50% VM, EEG yesterday showed possible seizures started on Keppra for MRI brain today. She was made no code DNR. Objective Vital Signs Date Time Temp Pulse Resp B/P (MAP) Pulse Ox O2 Delivery O2 Flow Rate FiO2 12/16/17 06:00 73 12/16/17 04:00 98.7 22 119/59 (79) 100 12/15/17 19:26 Venturi Mask 50 Intake and Output 12/16/17 12/16/17 12/17/17 08:00 16:00 00:00 Intake Total 980 ml Output Total 650 ml Balance 330 ml Result Diagram: 12/16/17 0320 12/16/17 0320 Other Results Laboratory Tests Test 12/15/17 10:35 12/15/17 16:06 12/15/17 22:48 12/16/17 03:20 Ammonia 35 MCMOL/L Blood Urea Nitrogen 38 MG/DL 35 MG/DL Creatinine 0.93 MG/DL 0.87 MG/DL Random Glucose 117 MG/DL 147 MG/DL Calcium Level 7.5 MG/DL 7.4 MG/DL Sodium Level 150 MEQ/L 153 MEQ/L Potassium Level 4.0 MEQ/L 3.9 MEQ/L 3.9 MEQ/L Chloride Level 123 MEQ/L 123 MEQ/L Carbon Dioxide Level 19.9 MEQ/L 20.5 MEQ/L Anion Gap 7 MEQ/L 10 MEQ/L Estimat Glomerular Filtration Rate 57 ML/MIN 62 ML/MIN White Blood Count 18.3 TH/MM3 Red Blood Count 3.42 MIL/MM3 Hemoglobin 11.2 GM/DL Hematocrit 34.2 % Mean Corpuscular Volume 99.8 FL Mean Corpuscular Hemoglobin 32.7 PG Mean Corpuscular Hemoglobin Concent 32.8 % Red Cell Distribution Width 15.7 % Platelet Count 126 TH/MM3 Mean Platelet Volume 11.1 FL Neutrophils (%) (Auto) 74.6 % Lymphocytes (%) (Auto) 16.2 % Monocytes (%) (Auto) 4.8 % Eosinophils (%) (Auto) 4.0 % Basophils (%) (Auto) 0.4 % Neutrophils # (Auto) 13.6 TH/MM3 Lymphocytes # (Auto) 3.0 TH/MM3 Monocytes # (Auto) 0.9 TH/MM3 Eosinophils # (Auto) 0.7 TH/MM3 Basophils # (Auto) 0.1 TH/MM3 CBC Comment DIFF FINAL Differential Comment Total Protein 5.4 GM/DL Phosphorus Level 1.7 MG/DL Magnesium Level 2.4 MG/DL Protein Corrected Calcium 8.3 MG/DL Imaging Last Impressions Chest X-Ray 12/15/17 0000 Signed Impressions: Service Date/Time: Friday, December 15, 2017 08:34 - CONCLUSION: 1. Interval placement nasogastric tube with the tip in the proximal stomach. The distal side-port lies in the distal esophagus and should be advanced at least 6 cm. 2. No acute cardiopulmonary disease. Bernardo Fabian MD Maxillofacial CT 12/13/17 0000 Signed Impressions: Service Date/Time: Wednesday, December 13, 2017 01:41 - CONCLUSION: Soft tissue swelling over the left orbit and frontal bone with no fracture or malalignment. Bernardo Fabian MD Head CT 12/13/17 0000 Signed Impressions: Service Date/Time: Wednesday, December 13, 2017 01:41 - CONCLUSION: Stable noncontrast head CT with no evidence of hemorrhage or mass effect. Bernardo Fabian MD Objective Remarks GENERAL: Patient is 87 yo lying in bed in NAD SKIN: Warm and dry. HEAD: Normocephalic. EYES: No scleral icterus. No injection or drainage. NECK: Supple, trachea midline. No JVD or lymphadenopathy. CARDIOVASCULAR: Regular rate and rhythm without murmurs, gallops, or rubs. RESPIRATORY: Breath sounds equal bilaterally. No accessory muscle use. GASTROINTESTINAL: Abdomen soft, non-tender, nondistended. MUSCULOSKELETAL: No cyanosis, or edema. Neuro: waxes/wanes mental status A/P Assessment and Plan 1. Hypernatremia. 2. Acute kidney injury...improving 3. Severe dehydration. 4. Status post fall. 5. Soft tissue swelling over the left orbit. 6. Leukocytosis. 7. History of Alzheimer's dementia. 8. Hx Hypothyroidism. 9. Diabetes. 10. Gastroesophageal reflux disease. 11. Hypertension. Plan Neuro: Monitor neuro status closely and avoid any sedatives. CT brain in the ED negative for acute intracranial process CT scan of the facial bones showed soft tissue swelling over the left orbit. EEG showed mod encephalopathy and posible seizures. Continue with [facility] for MRI brain today. Neuro is following- Dr. Chavez Esqueda: Continue with Oxygen maintain sats above 92%. Bronchodilators, aspiration precautions CXR yesterday showed no acute disease CV: Monitor HR and BP and maintain MAP>65 mmHg. On Cardizem 60mg Q6 : Monitor renal function, I's and O's and avoid nephrotoxins. Electrolyte replacement per protocol change IVF 09/23 NS@75ml/hr Change Free water 250ml Q8 monitor sodium level GI: on Pepcid for GI prophylaxis, On tube feeds via NGT-Glucerna 1.5 with goal rate 50ml/hr, ID: Monitor for signs of infections ( fever, WBC) follow up on BC form 12/15 on Cefepime ,Vanco 1gram x1 dose yesterday Endo: SSI with Accu-Cheks for glycemic TSH: 0.32 GI prophylaxis with Pepcid 10 mg IV q.12 hours and DVT prophylaxis with SCDs Palliative care is following Patient was made no code DNR Level 2 Rocio Rueda MD Dec 16, 2017 07:56
[2017-12-16] MEDS: FAMOTIDINE 20 MG TAB PO SCH ×2 (08:30→19:51)
[2017-12-16] MEDS: SODIUM CHLOR 0.45% 1000 ML INJ 1,000 ML IV SCH ×2 (08:30→21:00)
[2017-12-16] MEDS: DOCUSATE SODIUM 50 MG/SENNA 8.6 MG TAB PO SCH ×2 (08:30→19:51)
[2017-12-16] MEDS: levETIRAcetam INJ 500 MG in SODIUM CHLORIDE 0.9% INJ 100 ML IV SCH ×2 (08:58→19:51)
--- NOTE | 2017-12-16 10:23 | HHI.HCPN ---
Reason for visit a. To assist with evaluation and management of symptoms including:pain, shortness of breath, altered mental status b. To assist medical decision maker(s) with: better understanding of current medical conditions; weighing benefits/burdens of medical treatment options; making medical treatment decisions. Subjective/Interval History Follow up to further clarify goals of care. Patient seen and examined in ICU. Patient sleeping, arousable but lethargic. Patient is not following commands but spontaneously moving all 4 extremities. She has bilateral soft restraints. Patient remains on 50% venturi mask with O2 saturation in the high 90s. NGT with tube feeding infusing at 40ml/hr. Laboratory workup revealing WBC 18.3, Hgb 11.2, Hct 34.2, plt count 126, sodium 153, potassium 3.9. MRI Brain ordered yesterday-not yet done. Family met with sales driver yesterday and they want MRI brain to be done first before transitioning patient to hospice. Case discussed with bedside RN and sales driver. . Family/friend interactions No family at bedside. . Advance Directives Living Will: Copy in medical record Health Care Surrogate: Copy in medical record Durable Power of Resource Recovery Specialist: Copy in medical record Advance Directive Specifics Date completed: Living will completed on June 24, 2006 DURABLE POWER OF MANAGER SECONDARY signed June 24, 2006. . Health Care Surrogate(s): Healthcare surrogate -daughter- Jordon Stone . Documented care wishes: Standard verbiage . Objective Vital Signs Date Time Temp Pulse Resp B/P (MAP) Pulse Ox O2 Delivery O2 Flow Rate FiO2 12/16/17 06:00 73 12/16/17 04:00 68 12/16/17 04:00 98.7 68 22 119/59 (79) 100 12/16/17 02:00 74 12/16/17 00:00 85 12/16/17 00:00 97.6 85 29 96/51 (66) 100 12/15/17 22:00 87 12/15/17 20:00 88 12/15/17 20:00 97.8 88 28 117/57 (77) 100 12/15/17 19:26 98 Venturi Mask 50 12/15/17 18:00 66 12/15/17 16:00 97.5 91 28 106/57 (73) 100 12/15/17 16:00 91 12/15/17 14:00 97 12/15/17 12:00 91 12/15/17 12:00 97.7 91 16 144/60 (88) 100 Intake & Output 12/16/17 12/16/17 07:00 19:00 Intake Total 980 ml 718 ml Output Total 650 ml Balance 330 ml 718 ml Intake IV Total 718 ml Tube Feeding 480 ml Tube Irrigant 500 ml Output Urine Total 650 ml # Bowel Movements 0 Physical Exam CONSTITUTIONAL/GENERAL: This is a frail elderly patient in mild respiratory distress. Patient is sleeping. TUBES/LINES/DRAINS: Sanders catheter, PIV's, NG tube, Ventimask, BUE soft restraints SKIN: No jaundice, rashes, or lesions. Ecchymoses on upper extremities. Bruise to left forehead and left eyelid. Bruises to legs skin temperature appropriate. Not diaphoretic. HEAD: Atraumatic. Normocephalic. EYES:Patient sleeping. Bruise to left eyelid. Fundi not examined. ENT: Unable to assess hearing nose without bleeding or purulent drainage. Mouth dry NECK: Trachea midline. Supple, nontender. CARDIOVASCULAR: Regular rate and rhythm without murmurs, gallops, or rubs. No JVD. Peripheral pulses symmetric. RESPIRATORY/CHEST: Symmetric, unlabored respirations. Lungs rhonchi to auscultation GASTROINTESTINAL: Abdomen soft, non-tender, nondistended. No guarding. Bowel sounds present. GENITOURINARY: Without palpable bladder distension. Sanders catheter in place. MUSCULOSKELETAL: Extremities without clubbing, cyanosis, or edema. No joint tenderness or effusion noted. No calf tenderness. No mottling or clubbing. NEUROLOGICAL:Sleeping, arouses, lethargic. Motor and sensory grossly within normal limits. Not following commands but moving all extremities PSYCHIATRIC: Unable to assess due to clinical condition . Diagnostic Tests Laboratory Laboratory Tests Test 12/13/17 12:14 12/13/17 14:15 12/13/17 22:16 12/14/17 03:29 Nasal Screen MRSA (PCR) MRSA NOT DETECTED (NOT White Blood Count 18.0 TH/MM3 (4.0-11.0) 19.0 TH/MM3 (4.0-11.0) Red Blood Count 3.84 MIL/MM3 (4.00-5.30) 3.78 MIL/MM3 (4.00-5.30) Hemoglobin 12.8 GM/DL (11.6-15.3) 12.2 GM/DL (11.6-15.3) Hematocrit 39.1 % (35.0-46.0) 38.3 % (35.0-46.0) Mean Corpuscular Volume 101.9 FL (80.0-100.0) 101.2 FL (80.0-100.0) Mean Corpuscular Hemoglobin 33.3 PG (27.0-34.0) 32.3 PG (27.0-34.0) Mean Corpuscular Hemoglobin Concent 32.7 % (32.0-36.0) 31.9 % (32.0-36.0) Red Cell Distribution Width 15.7 % (11.6-17.2) 15.7 % (11.6-17.2) Platelet Count 273 TH/MM3 (150-450) 222 TH/MM3 (150-450) Mean Platelet Volume 10.7 FL (7.0-11.0) 10.9 FL (7.0-11.0) Neutrophils (%) (Auto) 67.8 % (16.0-70.0) 65.5 % (16.0-70.0) Lymphocytes (%) (Auto) 24.4 % (9.0-44.0) 26.0 % (9.0-44.0) Monocytes (%) (Auto) 6.9 % (0.0-8.0) 6.0 % (0.0-8.0) Eosinophils (%) (Auto) 0.4 % (0.0-4.0) 2.3 % (0.0-4.0) Basophils (%) (Auto) 0.5 % (0.0-2.0) 0.2 % (0.0-2.0) Neutrophils # (Auto) 12.2 TH/MM3 (1.8-7.7) 12.4 TH/MM3 (1.8-7.7) Lymphocytes # (Auto) 4.4 TH/MM3 (1.0-4.8) 4.9 TH/MM3 (1.0-4.8) Monocytes # (Auto) 1.2 TH/MM3 (0-0.9) 1.1 TH/MM3 (0-0.9) Eosinophils # (Auto) 0.1 TH/MM3 (0-0.4) 0.4 TH/MM3 (0-0.4) Basophils # (Auto) 0.1 TH/MM3 (0-0.2) 0.0 TH/MM3 (0-0.2) CBC Comment AUTO DIFF DIFF FINAL Differential Comment AUTO DIFF CONFIRMED Platelet Estimate NORMAL (NORMAL) Platelet Morphology Comment NORMAL (NORMAL) Ovalocytes 1+ (NORMAL) Blood Urea Nitrogen 87 MG/DL (7-18) 82 MG/DL (7-18) 75 MG/DL (7-18) Creatinine 1.98 MG/DL (0.50-1.00) 1.77 MG/DL (0.50-1.00) 1.59 MG/DL (0.50-1.00) Random Glucose 146 MG/DL (74-106) 139 MG/DL (74-106) 107 MG/DL (74-106) Calcium Level 8.1 MG/DL (8.5-10.1) 8.0 MG/DL (8.5-10.1) 8.1 MG/DL (8.5-10.1) Sodium Level 168 MEQ/L (136-145) 167 MEQ/L (136-145) 164 MEQ/L (136-145) Potassium Level 2.9 MEQ/L (3.5-5.1) 3.6 MEQ/L (3.5-5.1) 3.1 MEQ/L (3.5-5.1) Chloride Level 134 MEQ/L (98-107) 133 MEQ/L (98-107) 128 MEQ/L (98-107) Carbon Dioxide Level 26.0 MEQ/L (21.0-32.0) 28.2 MEQ/L (21.0-32.0) 25.9 MEQ/L (21.0-32.0) Anion Gap 8 MEQ/L (5-15) 6 MEQ/L (5-15) 10 MEQ/L (5-15) Estimat Glomerular Filtration Rate 24 ML/MIN (>89) 27 ML/MIN (>89) 31 ML/MIN (>89) Total Protein 5.9 GM/DL (6.4-8.2) Albumin 2.4 GM/DL (3.4-5.0) Alkaline Phosphatase 119 U/L (45-117) Aspartate Amino Transf (AST/SGOT) 32 U/L (15-37) Alanine Aminotransferase (ALT/SGPT) 28 U/L (10-53) Total Bilirubin 0.5 MG/DL (0.2-1.0) Test 12/14/17 11:33 12/15/17 04:40 12/15/17 07:10 12/15/17 10:35 Phosphorus Level 2.4 MG/DL (2.5-4.9) 2.0 MG/DL (2.5-4.9) Magnesium Level 2.5 MG/DL (1.5-2.5) 2.5 MG/DL (1.5-2.5) White Blood Count 22.0 TH/MM3 (4.0-11.0) Red Blood Count 3.76 MIL/MM3 (4.00-5.30) Hemoglobin 12.3 GM/DL (11.6-15.3) Hematocrit 37.9 % (35.0-46.0) Mean Corpuscular Volume 100.6 FL (80.0-100.0) Mean Corpuscular Hemoglobin 32.7 PG (27.0-34.0) Mean Corpuscular Hemoglobin Concent 32.5 % (32.0-36.0) Red Cell Distribution Width 15.5 % (11.6-17.2) Platelet Count 161 TH/MM3 (150-450) Mean Platelet Volume 11.0 FL (7.0-11.0) Neutrophils (%) (Auto) 76.3 % (16.0-70.0) Lymphocytes (%) (Auto) 16.6 % (9.0-44.0) Monocytes (%) (Auto) 5.1 % (0.0-8.0) Eosinophils (%) (Auto) 1.8 % (0.0-4.0) Basophils (%) (Auto) 0.2 % (0.0-2.0) Neutrophils # (Auto) 16.8 TH/MM3 (1.8-7.7) Lymphocytes # (Auto) 3.7 TH/MM3 (1.0-4.8) Monocytes # (Auto) 1.1 TH/MM3 (0-0.9) Eosinophils # (Auto) 0.4 TH/MM3 (0-0.4) Basophils # (Auto) 0.0 TH/MM3 (0-0.2) CBC Comment DIFF FINAL Differential Comment Blood Urea Nitrogen 46 MG/DL (7-18) Creatinine 1.08 MG/DL (0.50-1.00) Random Glucose 142 MG/DL (74-106) Calcium Level 8.0 MG/DL (8.5-10.1) Sodium Level 150 MEQ/L (136-145) Potassium Level 4.0 MEQ/L (3.5-5.1) Chloride Level 120 MEQ/L (98-107) Carbon Dioxide Level 20.9 MEQ/L (21.0-32.0) Anion Gap 9 MEQ/L (5-15) Estimat Glomerular Filtration Rate 48 ML/MIN (>89) Blood Gas Puncture Site RT RADIAL Blood Gas Patient Temperature 98.6 Blood Gas HCO3 21 mmol/L (22-26) Blood Gas Base Excess -2.8 mmol/L (-2-2) Blood Gas Oxygen Saturation 97 % (90-100) Arterial Blood pH 7.42 (7.380-7.420) Arterial Blood Partial Pressure CO2 33 mmHg (38-42) Arterial Blood Partial Pressure O2 136 mmHg (61-120) Arterial Blood Oxygen Content 16.1 Vol % (12.0-20.0) Arterial Blood Carboxyhemoglobin 0.8 % (0-4) Arterial Blood Methemoglobin 1.3 % (0-2) Blood Gas Hemoglobin 11.7 G/DL (12.0-16.0) Oxygen Delivery Device Venti Mask Blood Gas Inspired Oxygen 50 % Ammonia 35 MCMOL/L (11-32) Test 12/15/17 16:06 12/15/17 22:48 12/16/17 03:20 Blood Urea Nitrogen 38 MG/DL (7-18) 35 MG/DL (7-18) Creatinine 0.93 MG/DL (0.50-1.00) 0.87 MG/DL (0.50-1.00) Random Glucose 117 MG/DL (74-106) 147 MG/DL (74-106) Calcium Level 7.5 MG/DL (8.5-10.1) 7.4 MG/DL (8.5-10.1) Sodium Level 150 MEQ/L (136-145) 153 MEQ/L (136-145) Potassium Level 4.0 MEQ/L (3.5-5.1) 3.9 MEQ/L (3.5-5.1) 3.9 MEQ/L (3.5-5.1) Chloride Level 123 MEQ/L (98-107) 123 MEQ/L (98-107) Carbon Dioxide Level 19.9 MEQ/L (21.0-32.0) 20.5 MEQ/L (21.0-32.0) Anion Gap 7 MEQ/L (5-15) 10 MEQ/L (5-15) Estimat Glomerular Filtration Rate 57 ML/MIN (>89) 62 ML/MIN (>89) White Blood Count 18.3 TH/MM3 (4.0-11.0) Red Blood Count 3.42 MIL/MM3 (4.00-5.30) Hemoglobin 11.2 GM/DL (11.6-15.3) Hematocrit 34.2 % (35.0-46.0) Mean Corpuscular Volume 99.8 FL (80.0-100.0) Mean Corpuscular Hemoglobin 32.7 PG (27.0-34.0) Mean Corpuscular Hemoglobin Concent 32.8 % (32.0-36.0) Red Cell Distribution Width 15.7 % (11.6-17.2) Platelet Count 126 TH/MM3 (150-450) Mean Platelet Volume 11.1 FL (7.0-11.0) Neutrophils (%) (Auto) 74.6 % (16.0-70.0) Lymphocytes (%) (Auto) 16.2 % (9.0-44.0) Monocytes (%) (Auto) 4.8 % (0.0-8.0) Eosinophils (%) (Auto) 4.0 % (0.0-4.0) Basophils (%) (Auto) 0.4 % (0.0-2.0) Neutrophils # (Auto) 13.6 TH/MM3 (1.8-7.7) Lymphocytes # (Auto) 3.0 TH/MM3 (1.0-4.8) Monocytes # (Auto) 0.9 TH/MM3 (0-0.9) Eosinophils # (Auto) 0.7 TH/MM3 (0-0.4) Basophils # (Auto) 0.1 TH/MM3 (0-0.2) CBC Comment DIFF FINAL Differential Comment Total Protein 5.4 GM/DL (6.4-8.2) Phosphorus Level 1.7 MG/DL (2.5-4.9) Magnesium Level 2.4 MG/DL (1.5-2.5) Protein Corrected Calcium 8.3 MG/DL (8.5-10.1) Result Diagram: 12/16/17 0320 12/16/17 0320 Microbiology Microbiology Date/Time Source Procedure Growth Status 12/15/17 08:10 Blood Peripheral Aerobic Blood Culture Pending Received 12/15/17 08:10 Blood Peripheral Anaerobic Blood Culture Pending Received 12/15/17 08:00 Blood Peripheral Aerobic Blood Culture Pending Received 12/15/17 08:00 Blood Peripheral Anaerobic Blood Culture Pending Received Assessment and Plan Disease Oriented Problem List: (1) Severe dehydration (2) Acute kidney injury (3) Leukocytosis (4) Diabetes (5) Status post fall (6) Alzheimer's dementia (7) Hypertension (8) Forehead contusion Symptom Scale: (1) Pain Comment: History of falls. Questionable fall this admission with soft tissue swelling over the left orbit and frontal bone with no fracture and multiple bruises to the legs . (2) Dysphagia Comment: Currently n.p.o. failed swallow evaluation . (3) Shortness of breath Comment: Currently on Venturi mask. . (4) Altered mental status Comment: History of Alzheimer's dementia. Abnormal EEG 12/15. . Pertinent Non-Medical Issues Psychosocial:Patient was born in [place], [place]. Patient was mostly a ynoc-ju-erah mother. She is a and she had 3 adult children, one son and 2 living daughters. Spiritual: Patient is [employer] Legal: Patient has completed DURABLE POWER OF MANAGER SECONDARY, living will and healthcare surrogate Ethical issues impacting care: None identified at this time . Important Contacts Daughter-Shira Ruvalcaba- / Grandson-Erick Ruvalcaba- . Prognosis Mrs. Ruvalcaba is a 87-year-old female with a past medical history of Alzheimer's dementia, diabetes mellitus, congestive heart failure, gout, hypothyroidism, anxiety/depression,recurrent UTIs and GERD. Patient was brought to [facility] on for further evaluation after a questionable fall and was noted to have [facility] on her legs and [facility]. Clinical course complicated with altered mentation, dysphagia, shortness of breath and leukocytosis. Given ongoing multiple comorbidities, patient remains at risk for further complications, deterioration and decline. . Code Status: No Code Plan PLAN: Legal decision maker: Patient was deemed incapacitated on 06/01/2015. Per patient`s Durable Power of Resource Recovery Specialist signed 06/24/2018, patient appointed her daughter Leilani Ruvalcaba or her grandson Erick Ruvalcaba as her durable power of attorneys. Goals: Aggressive short of no code CODE STATUS: No code DNR/DNI SYMPTOMS: * Pain: Patient has history of falls. Recently admitted after a questionable fall, with bruises to left eye and legs. Maxillofacial CT revealed soft tissue swelling to the left orbital and frontal bone with no fracture. No pain medication ordered at this time due to lethargy. no signs of pain noted. Patient may benefit from low-dose tramadol * Dysphagia: Patient is currently n.p.o. failed swallow evaluation. Patient has an NG tube currently receiving Glucerna at 40 mL's an hour. Speech therapy following.no recommendations at this time. * Altered mental status: History of Alzheimer's dementia. Hypernatremic. On water flushes via PEG. Abnormal EEG 12/15. Neurologist following. MRI brain ordered- not yet done * Shortness of breath: Patient is normally on room air. O2 saturation dropped to low 80s on 12/14. Patient is currently on 50% Ventimask.O2 saturation in the high 90s. Palliative care will continue to follow the patient during hospital course as condition evolves, to assist patient/decision-maker with understanding of their medical conditions, weighing benefits/burdens of treatment options, for clarification of goals of treatment. Additionally will assist with any symptoms of palliative concern. . Attestation To help prompt me to consider important information that might be impacting today's encounter and assessment, information from prior notes written by myself or my colleagues may have been "brought forward" into today's note. My signature on this note, however, is an attestation that I personally performed the exam, history, and/or decision-making noted today, and, unless otherwise indicated, the interactions with patient, family, and staff as well as the review of records all occurred today. I also attest that the listed assessment and stated plan reflect my best clinical judgment today based on the combination of historical information, prior notes, and today's exam/ interactions. When time spent is documented, it refers only to time spent today by the signer, or if indicated, combined time spent today by collaborating physician/nurse practitioner. Ellen Cruz Dec 16, 2017 10:22
[2017-12-16] MEDS: FREE WATER G-TUBE SCH ×2 (13:00→19:51)
--- NOTE | 2017-12-16 18:27 | RADRPT ---
EXAM DATE/TIME: 12/16/2017 17:41 [place] COMPARISON: No previous studies available for comparison. INDICATIONS : Seizures. Head pain due to fall, confusion. MEDICAL HISTORY : Diabetes mellitus type 2. Hypertension. Congestive heart failure. Hypothyroidism, Dementia. SURGICAL HISTORY : Total knee replacement, right. Bladder tack up sx. ENCOUNTER: Initial ACUITY: 3 day PAIN SCORE: Nonresponsive. LOCATION: Bilateral cranial TECHNIQUE: Multiplanar, multisequence MRI of the brain was performed without contrast. FINDINGS: CEREBRUM: The ventricles and cortical sulci are widened. The ventricles are widened out of proportion to the rodriguez lcal widening. No evidence of midline shift, mass lesion, hemorrhage or acute infarction. No extraa xial fluid collections are seen. The pituitary gland and suprasellar cistern are normal in configura tion. WHITE MATTER: There some mild scattered focal areas of increased signal within the cerebral white matter. POSTERIOR FOSSA: The cerebellum and brainstem are intact. The 4th ventricle is midline. The cerebellopontine angle is unremarkable. The cerebellar tonsils are normal in position. DIFFUSION IMAGING: No focal areas of restricted diffusion are seen. No evidence of acute infarction. EXTRACRANIAL: The visualized portions of the orbits and paranasal sinuses are unremarkable. CONCLUSION: Atrophy. The ventricles are dilated out of proportion to the sulcal widening which can be seen with n ormal pressure hydrocephalus in the correct clinical situation. Rey Velasquez MD on December 16, 2017 at 18:24 Board Certified Radiologist. This report was verified electronically.
--- NOTE | 2017-12-16 21:41 | HHI.PR ---
Review/Management Diagnosis recent fall possible sz on EEG Possible NPH Plan continue keppra neurosurgery consult when more stable Diagnosis/Plan: Subjective Subjective Comments No acute events reported No sz Active Medications Current Medications Medications (Trade) Dose Ordered Sig/Jeri Route Start Time Stop Time Status Last Admin (Duoneb Neb) 1 ampule Q4HR NEB PRN INH 12/13/17 11:15 Miscellaneous Information 1 Q361D XX 12/13/17 11:15 12/13/17 11:15 (Chlorhexidine 2% Cloth) 3 pack Taper DAILY@04 TOP 12/14/17 04:00 12/10/18 03:59 12/16/17 04:00 (Chlorhexidine 2% Cloth) 3 pack UNSCH PRN TOP 12/13/17 11:15 (Lily-Colace) 1 tab BID PO 12/13/17 21:00 12/16/17 08:30 (Milk Of Magnesia Liq) 30 ml Q12H PRN PO 12/13/17 11:15 (Senokot) 17.2 mg Q12H PRN PO 12/13/17 11:15 (Dulcolax Supp) 10 mg DAILY PRN RECTAL 12/13/17 11:15 (Lactulose Liq) 30 ml DAILY PRN PO 12/13/17 11:15 (D50w (Vial) Inj) 50 ml UNSCH PRN IV PUSH 12/13/17 11:15 (Glucagon Inj) 1 mg UNSCH PRN OTHER 12/13/17 11:15 (NovoLIN R SUPPLEMENTAL SCALE) 1 Q6H SQ 12/13/17 12:00 12/16/17 12:00 (Cardizem) 60 mg Q6H PO 12/13/17 16:00 12/16/17 15:39 (Lopressor Inj) 2.5 mg Q6H PRN IV PUSH 12/13/17 16:45 12/13/17 16:54 Potassium Chloride 100 ml @ 50 mls/hr Q2H PRN IV 12/14/17 09:00 Potassium Chloride 100 ml @ 50 mls/hr Q2H PRN IV 12/14/17 09:00 12/14/17 16:45 (K-Lyte Cl Eff) 50 meq UNSCH PRN PO 12/14/17 09:00 Potassium Chloride 100 ml @ 25 mls/hr UNSCH PRN IV 12/14/17 09:00 Potassium Chloride 100 ml @ 50 mls/hr Q2H PRN IV 12/14/17 09:00 Magnesium Sulfate 4 gm/Sodium Chloride 100 ml @ 50 mls/hr UNSCH PRN IV 12/14/17 09:00 (Mag-Ox) 800 mg UNSCH PRN PO 12/14/17 09:00 Magnesium Sulfate 2 gm/Sodium Chloride 100 ml @ 50 mls/hr UNSCH PRN IV 12/14/17 09:00 (K-Phos) 2,000 mg Q4H PRN PO 12/14/17 09:00 Sodium Phosphate 30 mmol/Sodium Chloride 250 ml @ 42 mls/hr UNSCH PRN IV 12/14/17 09:00 12/14/17 15:43 (K-Phos) 2,000 mg UNSCH PRN PO/TUBE 12/14/17 09:00 Potassium Phosphate 30 mmol/ Sodium Chloride 260 ml @ 42 mls/hr UNSCH PRN IV 12/14/17 09:00 Cefepime HCl 1000 mg/Sodium Chloride 100 ml @ 200 mls/hr Q8H IV 12/15/17 08:00 12/16/17 15:39 Levetriacetam 500 mg/Sodium Chloride 105 ml @ 420 mls/hr Q12HR IV 12/15/17 11:00 12/16/17 19:51 (Pepcid) 10 mg BID PO 12/15/17 21:00 12/16/17 19:51 (Free Water) 250 ml Q8H G-TUBE 12/16/17 13:00 12/16/17 19:51 Sodium Chloride 1,000 ml @ 75 mls/hr [id number] IV 12/16/17 08:00 12/16/17 21:00 Allergies Allergies Coded Allergies No Known Allergies (Unverified Allergy, Unknown, 12/13/17) Exam I&O / VS 12/16/17 12/16/17 12/17/17 15:00 23:00 07:00 Intake Total 923 ml 1875 ml Output Total 1000 ml Balance 923 ml 875 ml Intake IV Total 923 ml 775 ml Tube Feeding 600 ml Tube Irrigant 500 ml Output Urine Total 1000 ml # Bowel Movements 1 Vital Signs Date Time Temp Pulse Resp B/P (MAP) Pulse Ox O2 Delivery O2 Flow Rate FiO2 12/16/17 18:00 92 12/16/17 16:00 98.0 89 29 78/57 (64) 100 12/16/17 16:00 89 12/16/17 14:00 84 12/16/17 12:00 97.3 84 22 120/86 (97) 99 12/16/17 12:00 84 12/16/17 10:00 86 12/16/17 08:00 91 12/16/17 08:00 97.4 91 28 108/63 (78) 100 12/16/17 08:00 99 Venturi Mask 50 12/16/17 06:00 73 12/16/17 04:00 68 12/16/17 04:00 98.7 68 22 119/59 (79) 100 12/16/17 02:00 74 12/16/17 00:00 85 12/16/17 00:00 97.6 85 29 96/51 (66) 100 12/15/17 22:00 87 Exam Comments lethargic, not following commands cn intact motor--no focal deficits, no posturing Objective Radiology Results MRI brain--ventriculomegally possible NPH Micro and Labs Laboratory Tests Test 12/15/17 22:48 12/16/17 03:20 Potassium Level 3.9 3.9 White Blood Count 18.3 Red Blood Count 3.42 Hemoglobin 11.2 Hematocrit 34.2 Mean Corpuscular Volume 99.8 Mean Corpuscular Hemoglobin 32.7 Mean Corpuscular Hemoglobin Concent 32.8 Red Cell Distribution Width 15.7 Platelet Count 126 Mean Platelet Volume 11.1 Neutrophils (%) (Auto) 74.6 Lymphocytes (%) (Auto) 16.2 Monocytes (%) (Auto) 4.8 Eosinophils (%) (Auto) 4.0 Basophils (%) (Auto) 0.4 Neutrophils # (Auto) 13.6 Lymphocytes # (Auto) 3.0 Monocytes # (Auto) 0.9 Eosinophils # (Auto) 0.7 Basophils # (Auto) 0.1 CBC Comment DIFF FINAL Differential Comment Blood Urea Nitrogen 35 Creatinine 0.87 Random Glucose 147 Total Protein 5.4 Calcium Level 7.4 Phosphorus Level 1.7 Magnesium Level 2.4 Sodium Level 153 Chloride Level 123 Carbon Dioxide Level 20.5 Anion Gap 10 Estimat Glomerular Filtration Rate 62 Protein Corrected Calcium 8.3 Date/Time Source Procedure Growth Status 12/15/17 08:10 Blood Peripheral Aerobic Blood Culture - Preliminary NO GROWTH IN 1 DAY Resulted 12/15/17 08:10 Blood Peripheral Anaerobic Blood Culture - Preliminary NO GROWTH IN 1 DAY Resulted Hima Byrne MD PhD Dec 16, 2017 21:41
[2017-12-17] VITALS (11 sets, daily range): BP systolic 96–147; BP diastolic 56–63; PULSE 81–103; RESP 20–28; TEMP 97.3–98.6; O2SAT 91–100
[2017-12-17] MEDS: INSULIN NovoLIN REGULAR SUPPLEMENTAL SCALE SQ SCH ×4 (00:36→17:53)
[2017-12-17] MEDS: CEFEPIME INJ 1,000 MG in SODIUM CHLORIDE 0.9% INJ 100 ML IV SCH ×3 (00:36→15:04)
[2017-12-17] MEDS: DILTIAZEM HCL 60 MG TAB PO SCH ×3 (04:00→15:04)
[2017-12-17] MEDS: CHLORHEXIDINE GLUCONATE 2 % 1 PACK (2 CLOTHS) TOP SCH (04:00)
[2017-12-17] MEDS: FREE WATER G-TUBE SCH ×2 (05:00→12:04)
[2017-12-17 07:21] LABS: BASOPHIL # 0.1 TH/MM3 (0-0.2); BASOPHIL % 0.3 % (0.0-2.0); EOSINOPHIL % 4.7 % (0.0-4.0); HEMOGLOBIN 10.7 GM/DL (11.6-15.3); LYMPH % 15.6 % (9.0-44.0); LYMPHOCYTE # 3.2 TH/MM3 (1.0-4.8); MEAN CELL VOLUME 99.8 FL (80.0-100.0); MEAN CORPUSCULAR HEMOGLOBIN 32.5 PG (27.0-34.0); MEAN CORPUSCULAR HGB CONC 32.6 % (32.0-36.0); MEAN PLATELET VOLUME 11.7 FL (7.0-11.0); MONO % 5.5 % (0.0-8.0); MONOCYTE # 1.1 TH/MM3 (0-0.9); NEUT % 73.9 % (16.0-70.0); PLATELET COUNT 134 TH/MM3 (150-450); RED BLOOD COUNT 3.31 MIL/MM3 (4.00-5.30); RED CELL DISTRIBUTION WIDTH 15.7 % (11.6-17.2); WHITE BLOOD COUNT 20.3 TH/MM3 (4.0-11.0)
[2017-12-17 07:40] LABS: BICARBONATE 23.4 MEQ/L (21.0-32.0); CALCIUM 7.6 MG/DL (8.5-10.1); CREATININE 0.78 MG/DL (0.50-1.00); MAGNESIUM 2.5 MG/DL (1.5-2.5); PHOSPHORUS 1.1 MG/DL (2.5-4.9)
[2017-12-17] MEDS: DOCUSATE SODIUM 50 MG/SENNA 8.6 MG TAB PO SCH (08:04)
[2017-12-17] MEDS: FAMOTIDINE 20 MG TAB PO SCH (08:04)
--- NOTE | 2017-12-17 09:09 | HHI.CCPN ---
Subjective Remarks/Hospital Course The patient is an 87-year-old female with past medical history of Alzheimer's dementia, diabetes mellitus, hypothyroidism, GERD, anxiety/depression and CHF. She presented to [facility] ED from a local [facility] after the weekend staff found her to have bruises on her legs and face and questionable fall. When the paramedics arrived, they found her lying off of the mattress on the floor and that she has a bruise to her left supraorbital area. On arrival to the ER, she was tachycardic and her laboratory data showed a severe hypernatremia with a sodium level of 167 and acute renal failure with a BUN of 113, creatinine 2.83. In addition, she has leukocytosis with a WBC of 21.7. The patient underwent CT scan of the brain which showed no evidence of any hemorrhage or mass effect. CT of the facial bones showed soft tissue swelling over the left orbit and frontal bone with no fracture or malalignment. A chest x-ray in the ED showed no acute disease. In the ER, she was given 500 bolus of NS. The patient is minimally verbal and most of the history was obtained from reviewing medical records. 12/14 Patient seems little more awake and alert today. Renal function is improving with Cr:1.59 from 1.7 last night. Afebrile. 12/15 Patient with wax/wanes mental status. Afebrile, WBC increased 22 12/16 Patient is on 50% VM, EEG yesterday showed possible seizures started on Keppra for MRI brain today. She was made no code DNR. 12/17: Remains encephalopathic on Ventimask currently. MRI brain with dilated ventricles being seen by Dr. Byrne. Objective Vital Signs Date Time Temp Pulse Resp B/P (MAP) Pulse Ox O2 Delivery O2 Flow Rate FiO2 12/17/17 06:00 89 12/17/17 04:00 98.6 26 98/56 (70) 99 12/16/17 22:02 Venturi Mask 6.00 50 Intake and Output 12/17/17 12/17/17 12/18/17 08:00 16:00 00:00 Intake Total 1100 ml Output Total 700 ml Balance 400 ml Result Diagram: 12/17/17 0616 12/17/17 0616 Imaging Last Impressions Chest X-Ray 12/15/17 0000 Signed Impressions: Service Date/Time: Friday, December 15, 2017 08:34 - CONCLUSION: 1. Interval placement nasogastric tube with the tip in the proximal stomach. The distal side-port lies in the distal esophagus and should be advanced at least 6 cm. 2. No acute cardiopulmonary disease. Bernardo Fabian MD Maxillofacial CT 12/13/17 0000 Signed Impressions: Service Date/Time: Wednesday, December 13, 2017 01:41 - CONCLUSION: Soft tissue swelling over the left orbit and frontal bone with no fracture or malalignment. Bernardo Fabian MD Head CT 12/13/17 0000 Signed Impressions: Service Date/Time: Wednesday, December 13, 2017 01:41 - CONCLUSION: Stable noncontrast head CT with no evidence of hemorrhage or mass effect. Bernardo Fabian MD Objective Remarks GENERAL: Patient is 87 yo lying in bed in NAD SKIN: Warm and dry. HEAD: Normocephalic. EYES: No scleral icterus. No injection or drainage. NECK: Supple, trachea midline. No JVD or lymphadenopathy. CARDIOVASCULAR: Regular rate and rhythm without murmurs, gallops, or rubs. RESPIRATORY: Breath sounds equal bilaterally. No accessory muscle use. GASTROINTESTINAL: Abdomen soft, non-tender, nondistended. MUSCULOSKELETAL: No cyanosis, or edema. Neuro: waxes/wanes mental status A/P Assessment and Plan 1. Hypernatremia. 2. Acute kidney injury...improving 3. Severe dehydration. 4. Status post fall. 5. Soft tissue swelling over the left orbit. 6. Leukocytosis. 7. History of Alzheimer's dementia. 8. Hx Hypothyroidism. 9. Diabetes. 10. Gastroesophageal reflux disease. 11. Hypertension. Plan Neuro: Monitor neuro status closely and avoid any sedatives. CT brain in the ED negative for acute intracranial process CT scan of the facial bones showed soft tissue swelling over the left orbit. EEG showed mod encephalopathy and posible seizures. Continue with Keppra, MRI brain with cerebral atrophy and dilated ventricles-further recommendations per Dr. Byrne Neuro is following- Dr. Byrne Pulm: Continue with Oxygen maintain sats above 92%. Bronchodilators, aspiration precautions CXR yesterday showed no acute disease CV: Monitor HR and BP and maintain MAP>65 mmHg. On Cardizem 60mg Q6 : Monitor renal function, I's and O's and avoid nephrotoxins. Electrolyte replacement per protocol 09/23 NS@75ml/hr Change Free water 250ml Q8 monitor sodium level GI: on Pepcid for GI prophylaxis, On tube feeds via NGT-Glucerna 1.5 with goal rate 50ml/hr, ID: Monitor for signs of infections ( fever, WBC) follow up on BC form 12/15 on Cefepime ,Vanco 1gram x1 dose yesterday Endo: SSI with Accu-Cheks for glycemic TSH: 0.32 GI prophylaxis with Pepcid 10 mg IV q.12 hours and DVT prophylaxis with SCDs Palliative care is following Patient was made no code DNR. The wounds appears poor. Recommend hospice. Level 2 Sidney Soto MD Dec 17, 2017 09:09
[2017-12-17] MEDS: levETIRAcetam INJ 500 MG in SODIUM CHLORIDE 0.9% INJ 100 ML IV SCH (09:23)
[2017-12-17] MEDS: POTASSIUM PHOSPHATE MONOBASIC 500 MG TAB PO PRN ×2 (09:23→17:51)
[2017-12-17] MEDS: SODIUM CHLOR 0.45% 1000 ML INJ 1,000 ML IV SCH (09:35)
--- NOTE | 2017-12-17 10:42 | HHI.HCPN ---
Reason for visit a. To assist with evaluation and management of symptoms including:pain, shortness of breath, altered mental status b. To assist medical decision maker(s) with: better understanding of current medical conditions; weighing benefits/burdens of medical treatment options; making medical treatment decisions. Subjective/Interval History Follow up to further clarify goals of care. Patient is in bed, awake, tracking with her eyes, lethargic and trying to speak. Patient is now on 0% Venturi mask with O2 saturation in the low to mid 90s. Tube feeds infusing via NG tube. MRI brain 12/16/17 revealed atrophy. Ventricles are dilated out of proportion to the sulcal widening which can be seen with normal pressure hydrocephalus in the correct clinical situation. Laboratory workup today revealing WBC 20.3, hemoglobin 10.7, hematocrit 33.0, platelet count 134, sodium 150, potassium 4.2, BUN/creatinine 30/0.78. Patient is on water flushes for hypernatremia. Telephone with POAngie with patient's grandson Erick Ruvalcaba who is also patient's power of patent attorney. Updated him on MRI brain results. Patient`s grandson expressed that most likely patient's family would not be interested in any surgical intervention to correct possible normal pressure hydrocephalus, or any invasive procedures that may end up prolonging patient`s suffering. Per conversation with POA it appears that the family is leaning more towards transitioning patient to comfort care only through hospice services. Patient's grandson is going to make phone calls to other family members, update them on patient's current status and will call back back with final decision from the rest of the family. Case discussed with bedside RN and agricultural labor camp manager. . Family/friend interactions Telephone conversation with patient's POA Erick Ruvalcaba. . Advance Directives Living Will: Copy in medical record Health Care Surrogate: Copy in medical record Durable Power of Keying Machine Operator: Copy in medical record Advance Directive Specifics Date completed: Living will completed on June 24, 2006 DURABLE POWER OF FACULTY I ON CALL MEDICAL ASSISTANT signed June 24, 2006. . Health Care Surrogate(s): Healthcare surrogate -daughter- Jordon Stone . Documented care wishes: Standard verbiage . Objective Vital Signs Date Time Temp Pulse Resp B/P (MAP) Pulse Ox O2 Delivery O2 Flow Rate FiO2 12/17/17 09:27 100 Nasal Cannula 6.00 50 12/17/17 06:00 89 12/17/17 04:00 98.6 103 26 98/56 (70) 99 12/17/17 04:00 88 12/17/17 02:00 88 12/17/17 00:00 82 12/17/17 00:00 98.6 84 28 96/57 (70) 100 12/16/17 22:02 100 Venturi Mask 6.00 50 12/16/17 22:00 85 12/16/17 20:00 89 12/16/17 20:00 98.8 85 26 115/56 (75) 12/16/17 18:00 92 12/16/17 16:00 98.0 89 29 78/57 (64) 100 12/16/17 16:00 89 12/16/17 14:00 84 12/16/17 12:00 97.3 84 22 120/86 (97) 99 12/16/17 12:00 84 Intake & Output 12/17/17 12/17/17 07:00 19:00 Intake Total 1100 ml Output Total 700 ml Balance 400 ml Tube Feeding 600 ml Tube Irrigant 500 ml Output Urine Total 700 ml # Bowel Movements 0 Physical Exam CONSTITUTIONAL/GENERAL: This is a frail elderly patient in mild respiratory distress. Patient is awake, lethargic. TUBES/LINES/DRAINS: Sanders catheter, PIV's, NG tube, Ventimask, BUE soft restraints SKIN: No jaundice, rashes, or lesions. Ecchymoses on upper extremities. Bruise to left forehead and left eyelid. Bruises to legs skin temperature appropriate. Not diaphoretic. HEAD: Atraumatic. Normocephalic. EYES:Patient sleeping. Bruise to left eyelid. Fundi not examined. ENT: Unable to assess hearing nose without bleeding or purulent drainage. Mouth dry NECK: Trachea midline. Supple, nontender. CARDIOVASCULAR: Regular rate and rhythm without murmurs, gallops, or rubs. No JVD. Peripheral pulses symmetric. RESPIRATORY/CHEST: Symmetric, unlabored respirations. Lungs rhonchi to auscultation GASTROINTESTINAL: Abdomen soft, non-tender, nondistended. No guarding. Bowel sounds present. GENITOURINARY: Without palpable bladder distension. Sanders catheter in place. MUSCULOSKELETAL: Extremities without clubbing, cyanosis, or edema. No joint tenderness or effusion noted. No calf tenderness. No mottling or clubbing. NEUROLOGICAL:Sleeping, arouses, lethargic. Motor and sensory grossly within normal limits. Not following commands but moving all extremities PSYCHIATRIC: Unable to assess due to clinical condition . Diagnostic Tests Laboratory Laboratory Tests Test 12/14/17 11:33 12/15/17 04:40 12/15/17 07:10 12/15/17 10:35 Phosphorus Level 2.4 MG/DL (2.5-4.9) 2.0 MG/DL (2.5-4.9) Magnesium Level 2.5 MG/DL (1.5-2.5) 2.5 MG/DL (1.5-2.5) White Blood Count 22.0 TH/MM3 (4.0-11.0) Red Blood Count 3.76 MIL/MM3 (4.00-5.30) Hemoglobin 12.3 GM/DL (11.6-15.3) Hematocrit 37.9 % (35.0-46.0) Mean Corpuscular Volume 100.6 FL (80.0-100.0) Mean Corpuscular Hemoglobin 32.7 PG (27.0-34.0) Mean Corpuscular Hemoglobin Concent 32.5 % (32.0-36.0) Red Cell Distribution Width 15.5 % (11.6-17.2) Platelet Count 161 TH/MM3 (150-450) Mean Platelet Volume 11.0 FL (7.0-11.0) Neutrophils (%) (Auto) 76.3 % (16.0-70.0) Lymphocytes (%) (Auto) 16.6 % (9.0-44.0) Monocytes (%) (Auto) 5.1 % (0.0-8.0) Eosinophils (%) (Auto) 1.8 % (0.0-4.0) Basophils (%) (Auto) 0.2 % (0.0-2.0) Neutrophils # (Auto) 16.8 TH/MM3 (1.8-7.7) Lymphocytes # (Auto) 3.7 TH/MM3 (1.0-4.8) Monocytes # (Auto) 1.1 TH/MM3 (0-0.9) Eosinophils # (Auto) 0.4 TH/MM3 (0-0.4) Basophils # (Auto) 0.0 TH/MM3 (0-0.2) CBC Comment DIFF FINAL Differential Comment Blood Urea Nitrogen 46 MG/DL (7-18) Creatinine 1.08 MG/DL (0.50-1.00) Random Glucose 142 MG/DL (74-106) Calcium Level 8.0 MG/DL (8.5-10.1) Sodium Level 150 MEQ/L (136-145) Potassium Level 4.0 MEQ/L (3.5-5.1) Chloride Level 120 MEQ/L (98-107) Carbon Dioxide Level 20.9 MEQ/L (21.0-32.0) Anion Gap 9 MEQ/L (5-15) Estimat Glomerular Filtration Rate 48 ML/MIN (>89) Blood Gas Puncture Site RT RADIAL Blood Gas Patient Temperature 98.6 Blood Gas HCO3 21 mmol/L (22-26) Blood Gas Base Excess -2.8 mmol/L (-2-2) Blood Gas Oxygen Saturation 97 % (90-100) Arterial Blood pH 7.42 (7.380-7.420) Arterial Blood Partial Pressure CO2 33 mmHg (38-42) Arterial Blood Partial Pressure O2 136 mmHg (61-120) Arterial Blood Oxygen Content 16.1 Vol % (12.0-20.0) Arterial Blood Carboxyhemoglobin 0.8 % (0-4) Arterial Blood Methemoglobin 1.3 % (0-2) Blood Gas Hemoglobin 11.7 G/DL (12.0-16.0) Oxygen Delivery Device Venti Mask Blood Gas Inspired Oxygen 50 % Ammonia 35 MCMOL/L (11-32) Test 12/15/17 16:06 12/15/17 22:48 12/16/17 03:20 12/17/17 06:16 Blood Urea Nitrogen 38 MG/DL (7-18) 35 MG/DL (7-18) 30 MG/DL (7-18) Creatinine 0.93 MG/DL (0.50-1.00) 0.87 MG/DL (0.50-1.00) 0.78 MG/DL (0.50-1.00) Random Glucose 117 MG/DL (74-106) 147 MG/DL (74-106) 149 MG/DL (74-106) Calcium Level 7.5 MG/DL (8.5-10.1) 7.4 MG/DL (8.5-10.1) 7.6 MG/DL (8.5-10.1) Sodium Level 150 MEQ/L (136-145) 153 MEQ/L (136-145) 150 MEQ/L (136-145) Potassium Level 4.0 MEQ/L (3.5-5.1) 3.9 MEQ/L (3.5-5.1) 3.9 MEQ/L (3.5-5.1) 4.2 MEQ/L (3.5-5.1) Chloride Level 123 MEQ/L (98-107) 123 MEQ/L (98-107) 121 MEQ/L (98-107) Carbon Dioxide Level 19.9 MEQ/L (21.0-32.0) 20.5 MEQ/L (21.0-32.0) 23.4 MEQ/L (21.0-32.0) Anion Gap 7 MEQ/L (5-15) 10 MEQ/L (5-15) 6 MEQ/L (5-15) Estimat Glomerular Filtration Rate 57 ML/MIN (>89) 62 ML/MIN (>89) 70 ML/MIN (>89) White Blood Count 18.3 TH/MM3 (4.0-11.0) 20.3 TH/MM3 (4.0-11.0) Red Blood Count 3.42 MIL/MM3 (4.00-5.30) 3.31 MIL/MM3 (4.00-5.30) Hemoglobin 11.2 GM/DL (11.6-15.3) 10.7 GM/DL (11.6-15.3) Hematocrit 34.2 % (35.0-46.0) 33.0 % (35.0-46.0) Mean Corpuscular Volume 99.8 FL (80.0-100.0) 99.8 FL (80.0-100.0) Mean Corpuscular Hemoglobin 32.7 PG (27.0-34.0) 32.5 PG (27.0-34.0) Mean Corpuscular Hemoglobin Concent 32.8 % (32.0-36.0) 32.6 % (32.0-36.0) Red Cell Distribution Width 15.7 % (11.6-17.2) 15.7 % (11.6-17.2) Platelet Count 126 TH/MM3 (150-450) 134 TH/MM3 (150-450) Mean Platelet Volume 11.1 FL (7.0-11.0) 11.7 FL (7.0-11.0) Neutrophils (%) (Auto) 74.6 % (16.0-70.0) 73.9 % (16.0-70.0) Lymphocytes (%) (Auto) 16.2 % (9.0-44.0) 15.6 % (9.0-44.0) Monocytes (%) (Auto) 4.8 % (0.0-8.0) 5.5 % (0.0-8.0) Eosinophils (%) (Auto) 4.0 % (0.0-4.0) 4.7 % (0.0-4.0) Basophils (%) (Auto) 0.4 % (0.0-2.0) 0.3 % (0.0-2.0) Neutrophils # (Auto) 13.6 TH/MM3 (1.8-7.7) 15.0 TH/MM3 (1.8-7.7) Lymphocytes # (Auto) 3.0 TH/MM3 (1.0-4.8) 3.2 TH/MM3 (1.0-4.8) Monocytes # (Auto) 0.9 TH/MM3 (0-0.9) 1.1 TH/MM3 (0-0.9) Eosinophils # (Auto) 0.7 TH/MM3 (0-0.4) 1.0 TH/MM3 (0-0.4) Basophils # (Auto) 0.1 TH/MM3 (0-0.2) 0.1 TH/MM3 (0-0.2) CBC Comment DIFF FINAL DIFF FINAL Differential Comment Total Protein 5.4 GM/DL (6.4-8.2) Phosphorus Level 1.7 MG/DL (2.5-4.9) 1.1 MG/DL (2.5-4.9) Magnesium Level 2.4 MG/DL (1.5-2.5) 2.5 MG/DL (1.5-2.5) Protein Corrected Calcium 8.3 MG/DL (8.5-10.1) Result Diagram: 12/17/17 0616 12/17/17 0616 Microbiology Microbiology Date/Time Source Procedure Growth Status 12/15/17 08:10 Blood Peripheral Aerobic Blood Culture - Preliminary NO GROWTH IN 1 DAY Resulted 12/15/17 08:10 Blood Peripheral Anaerobic Blood Culture - Preliminary NO GROWTH IN 1 DAY Resulted 12/15/17 08:00 Blood Peripheral Aerobic Blood Culture - Preliminary NO GROWTH IN 1 DAY Resulted 12/15/17 08:00 Blood Peripheral Anaerobic Blood Culture - Preliminary NO GROWTH IN 1 DAY Resulted Imaging Last 48 hours Impressions Brain MRI 12/16/17 0000 Signed Impressions: Service Date/Time: Saturday, December 16, 2017 17:41 - CONCLUSION: Atrophy. The ventricles are dilated out of proportion to the sulcal widening which can be seen with normal pressure hydrocephalus in the correct clinical situation. Rey Velasquez MD Assessment and Plan Disease Oriented Problem List: (1) Severe dehydration (2) Acute kidney injury (3) Leukocytosis (4) Diabetes (5) Status post fall (6) Alzheimer's dementia (7) Hypertension (8) Forehead contusion Symptom Scale: (1) Pain Comment: History of falls. Questionable fall this admission with soft tissue swelling over the left orbit and frontal bone with no fracture and multiple bruises to the legs . (2) Dysphagia Comment: Currently n.p.o. failed swallow evaluation . (3) Shortness of breath Comment: Currently on Venturi mask. . (4) Altered mental status Comment: History of Alzheimer's dementia. Abnormal EEG 12/15. . Pertinent Non-Medical Issues Psychosocial:Patient was born in [place], [place]. Patient was mostly a [id number] mother. She is a and she had 3 adult children, one son and 2 living daughters. Spiritual: Patient is Taoist Legal: Patient has completed DURABLE POWER OF FACULTY I ON CALL MEDICAL ASSISTANT, living will and healthcare surrogate Ethical issues impacting care: None identified at this time . Important Contacts Daughter-Shira Ruvalcaba- / Grandson-Erick Ruvalcaba- . Prognosis Mrs. Ruvalcaba is a 87-year-old female with a past medical history of Alzheimer's dementia, diabetes mellitus, congestive heart failure, gout, hypothyroidism, anxiety/depression,recurrent UTIs and GERD. Patient was brought to [facility] ER on 3/ 24 for further evaluation after a questionable fall and was noted to have bruises on her legs and face at the intermediate where she resides. Clinical course complicated with altered mentation, dysphagia, shortness of breath and leukocytosis. Given ongoing multiple comorbidities, patient remains at risk for further complications, deterioration and decline. . Code Status: No Code Plan PLAN: Legal decision maker: Patient was deemed incapacitated on 06/01/2015. Per patient`s Durable Power of Keying Machine Operator signed 06/24/2018, patient appointed her daughter Leilani Ruvalcaba or her grandson Erick Ruvalcaba as her durable power of attorneys. Goals: Aggressive short of no code CODE STATUS: No code DNR/DNI Telephone with POA with patient's grandson Erick Ruvalcaba who is also patient's power of patent attorney. Updated him on MRI brain results. Patient`s grandson expressed that most likely patient's family would not be interested in any surgical intervention to correct possible normal pressure hydrocephalus, or any invasive procedures that may end up prolonging patient`s suffering. Per conversation with POA it appears that the family is leaning more towards transitioning patient to comfort care only through hospice services. Patient's grandson is going to make phone calls to other family members, update them on patient's current status and will call back back with final decision from the rest of the family. SYMPTOMS: * Pain: Patient has history of falls. Recently admitted after a questionable fall, with bruises to left eye and legs. Maxillofacial CT revealed soft tissue swelling to the left orbital and frontal bone with no fracture. No pain medication ordered at this time due to lethargy. no signs of pain noted. Patient may benefit from Tylenol or low-dose tramadol * Dysphagia: Patient is currently n.p.o. failed swallow evaluation. Patient has an NG tube currently receiving Glucerna at 40 mL's an hour. Speech therapy following.no recommendations at this time. * Altered mental status: History of Alzheimer's dementia. Hypernatremic. On water flushes via PEG. Abnormal EEG 12/15. Neurologist following. MRI brain revealed out of proportion dilation of ventricles-possible normal pressure hydrocephalus. No recommendations at this time * Shortness of breath: Patient is normally on room air. O2 saturation dropped to low 80s on 12/14. Patient is on duo nebs q 4 hrs prn. patient is now on 40% Ventimask.O2 saturation in the high 90s. No recommendations. Palliative care will continue to follow the patient during hospital course as condition evolves, to assist patient/decision-maker with understanding of their medical conditions, weighing benefits/burdens of treatment options, for clarification of goals of treatment. Additionally will assist with any symptoms of palliative concern. . Attestation To help prompt me to consider important information that might be impacting today's encounter and assessment, information from prior notes written by myself or my colleagues may have been "brought forward" into today's note. My signature on this note, however, is an attestation that I personally performed the exam, history, and/or decision-making noted today, and, unless otherwise indicated, the interactions with patient, family, and staff as well as the review of records all occurred today. I also attest that the listed assessment and stated plan reflect my best clinical judgment today based on the combination of historical information, prior notes, and today's exam/ interactions. When time spent is documented, it refers only to time spent today by the signer, or if indicated, combined time spent today by collaborating physician/nurse practitioner. Ellen Cruz Dec 17, 2017 10:42
== END 2017-12-17 19:50 | disposition hospice, inpatient (51) | DRG 640 ==
LOC: NEPE 01:00 → NEDA 06:47 → HIME 10:10
PROVIDERS: ADMIT Internal Medicine Critical Care Medicine; ATTEND Internal Medicine Critical Care Medicine
DX: E87.0 Hyperosmolality and hypernatremia (principal); G93.40 Encephalopathy, unspecified; E86.0 Dehydration; N17.9 Acute kidney failure, unspecified; I11.0 Hypertensive heart disease with heart failure; I50.9 Heart failure, unspecified; G30.9 Alzheimer's disease, unspecified; F02.80 Dementia in other diseases classified elsewhere, unspecified severity, without behavioral disturbance, psychotic disturbance, mood disturbance, and anxiety; E11.9 Type 2 diabetes mellitus without complications; Z79.84 Long term (current) use of oral hypoglycemic drugs; F32.9 Major depressive disorder, single episode, unspecified; K21.9 Gastro-esophageal reflux disease without esophagitis; E03.9 Hypothyroidism, unspecified; F41.9 Anxiety disorder, unspecified; Z66 Do not resuscitate; Z51.5 Encounter for palliative care; S00.83XA Contusion of other part of head, initial encounter; S80.12XA Contusion of left lower leg, initial encounter; S80.11XA Contusion of right lower leg, initial encounter; X58.XXXA Exposure to other specified factors, initial encounter; Z91.81 History of falling
CPT/HCPCS: 36600; 70450; 70486; 70551; 71045; 76937; 80048; 80053; 81001; 82140; 82550; 82805; 83690; 83735; 84100; 84132; 84155; 84443; 85025; 87040; 87641; 95819; 96360; 96361; J0692; J1953; J3370; J3480; J7030; J7040; J7050; J7070